=== PATIENT | male | born 1935 | race Hispanic/Latino ===

== ENCOUNTER 2016-09-07 16:45 | Inpatient (IN) | payer MEDICARE ==
[2016-09-07 17:03] VITALS: BMI 32.6
[2016-09-07 17:35] LABS: ADD MANUAL DIFF? NO
[2016-09-07 17:42] LABS: BASO # 0.02 K/mm3 (0.0-2.0); BASO % 0.4 % (0.0-3.0); EOS # 0.1 (0.0-0.7); EOS % 1.2 % (1.5-5.0); GRAN # 4.18 (1.4-6.5); GRAN % 73.8 % (50.0-68.0); HEMATOCRIT 35.1 % (42.0-52.0); LYMPH # 1.1 (1.2-3.4); LYMPH % 18.9 % (22.0-35.0); MEAN CELL VOLUME 85.8 fL (80.0-105.0); MEAN CORPUSCULAR HEMOGLOBIN 30.1 pg (25.0-35.0); MEAN PLATELET VOLUME 11.7 fl (7.0-11.0); MONO # 0.3 (0.1-0.6); MONO % 5.7 % (1.0-6.0); PLATELET COUNT 228 10^3/uL (120.0-450.0); RED CELL DISTRIBUTION WIDTH 12.8 % (11.5-14.5); WHITE BLOOD COUNT 5.7 10^3/ul (4.5-11.0)
[2016-09-07 17:53] LABS: ALB/GLOB RATIO 0.7 (1.1-1.8); ALKALINE PHOSPHATASE 147 U/L (38-133); ALT/SGPT 22 U/L (7-56); AST/SGOT 42 U/L (15-59); BILIRUBIN,TOTAL 0.9 mg/dL (0.2-1.3); BLOOD UREA NITROGEN 36 mg/dL (7-21); CALCIUM 8.4 mg/dL (8.4-10.5); CARBON DIOXIDE 29 mmol/L (21-33); CHLORIDE 91 mmol/L (98-107); GFR AFRICAN-AMERICAN > 60; POTASSIUM 4.5 mmol/L (3.6-5.0); SODIUM 125 mmol/L (132-148); TOTAL PROTEIN 6.7 g/dL (5.8-8.3)
[2016-09-07 17:54] LABS: INR 0.94 (0.93-1.08); PARTIAL THROMBOPLASTIN TIME 24.3 Seconds (23.7-30.8)
[2016-09-07 18:03] LABS: TROPONIN I 0.06 ng/mL
[2016-09-07 18:24] LABS: GLUCOSE,RANDOM 594 mg/dL (70-110)
[2016-09-07] MEDS ORDERED: Insulin Reg-MEDIUM-Coverage IV STA ×2 (18:27→20:19)
[2016-09-07] MEDS ORDERED: Insulin Regular 1 UNITS/0.01 ML ML IV STA ×2 (18:35→20:51)
--- NOTE | 2016-09-07 18:59 | RAD ---
PROCEDURE: CHEST RADIOGRAPH, 1 VIEW HISTORY: admission COMPARISON: 05/30/2016. FINDINGS: LUNGS: Clear. PLEURA: No pneumothorax or pleural fluid seen. CARDIOVASCULAR: No radiographic findings to suggest acute or significant cardiovascular disease. OSSEOUS STRUCTURES: No significant abnormalities. VISUALIZED UPPER ABDOMEN: Normal. OTHER FINDINGS: None. IMPRESSION: No active disease. No acute/significant interval changes.
--- NOTE | 2016-09-07 19:30 | ED PDOC ---
Arrival/HPI - General Chief Complaint: Lower Extremity Problem/Injury Time Seen by Provider: 09/07/16 17:01 Historian: Patient - History of Present Illness Narrative History of Present Illness (Text): 09/07/16 19:27 80yo male with PMhx of hypertension, diabetes and CHF BIBA for complaint of worsening b/l lower leg swelling x weeks. the daughter who was by the bedside states she noticed excretion of clear fluid from the legs. States she is not sure if he is complaint with his medication. Requesting evaluation for possible Dementia or Alzheimer's. Denies chest pain, cough, orthopnea, HAGER, fever, chills , sick contact, any other complaint. Past Medical History - Provider Review Nursing Documentation Reviewed: Yes - Cardiac Hx Cardiac Disorders: Yes Hx Hypertension: Yes Hx Peripheral Edema: Yes - Pulmonary Hx Respiratory Disorders: No - Neurological Hx Neurological Disorder: No - HEENT Hx HEENT Disorder: No - Renal Hx Renal Disorder: No - Endocrine/Metabolic Hx Endocrine Disorders: Yes Hx Diabetes Mellitus Type 1: Yes - Hematological/Oncological Hx Blood Disorders: No - Integumentary Hx Dermatological Disorder: No - Musculoskeletal/Rheumatological Hx Musculoskeletal Disorders: No Hx Falls: No - Gastrointestinal Hx Gastrointestinal Disorders: No - Genitourinary/Gynecological Hx Genitourinary Disorders: No - Psychiatric Hx Psychophysiologic Disorder: No Hx Substance Use: No Family/Social History - Physician Review Nursing Documentation Reviewed: Yes Family/Social History: Unknown Family HX Smoking Status: Never Smoked Hx Alcohol Use: No Hx Substance Use: No Allergies/Home Meds Allergies/Adverse Reactions: Allergies No Known Allergies Allergy (Verified 09/07/16 17:02) Home Medications: Home Meds Medication Instructions Recorded Confirmed Aspirin [Ecotrin] 81 mg PO DAILY 05/30/16 09/07/16 Insulin Aspart/Insulin Aspar 10 units SC BID 05/30/16 05/30/16 [Novolog Mix 70/30 (70/30 units/ml)] Lisinopril [Zestril] 40 mg PO DAILY 05/30/16 09/07/16 Furosemide [Lasix] 40 mg PO BID 09/07/16 09/07/16 Potassium Chloride [Klor-Con 10] 10 meq PO BID 09/07/16 09/07/16 Review of Systems - Physician Review All systems were reviewed & negative as marked: Yes - Review of Systems Constitutional: Normal Eyes: Normal ENT: Normal Respiratory: Normal Cardiovascular: Edema (B/L LE) Gastrointestinal: Normal Genitourinary Male: Normal Musculoskeletal: Normal Skin: Normal Neurological: Normal Endocrine: Normal Hemo/Lymphatic: Normal Psychiatric: Normal Physical Exam Vital Signs Reviewed: Yes Vital Signs Temp Pulse Resp BP Pulse Ox 09/07/16 19:03 149/79 09/07/16 19:00 99 H 19 149/79 95 09/07/16 17:02 98.9 F 89 19 187/90 H 98 Temperature: Afebrile Blood Pressure: Normal Pulse: Regular Respiratory Rate: Normal Appearance: Positive for: Well-Appearing, Non-Toxic, Comfortable Pain Distress: None Mental Status: Positive for: Alert and Oriented X 3 - Systems Exam Head: Present: Atraumatic, Normocephalic Pupils: Present: PERRL Extroacular Muscles: Present: EOMI Conjunctiva: Present: Normal Mouth: Present: Moist Mucous Membranes Neck: Present: Normal Range of Motion Respiratory/Chest: Present: Clear to Auscultation, Good Air Exchange, Rales ( Ble bases). No: Respiratory Distress, Accessory Muscle Use, Wheezes, Decreased Breath Sounds, Retracting, Rhonchi, Tachypneic Cardiovascular: Present: Regular Rate and Rhythm, Normal S1, S2. No: Murmurs Abdomen: Present: Normal Bowel Sounds. No: Tenderness, Distention, Peritoneal Signs Back: Present: Normal Inspection Upper Extremity: Present: Normal Inspection. No: Cyanosis, Edema Lower Extremity: Present: Normal Inspection, Edema (4+bipedal edema), CALF TENDERNESS (B/L), NORMAL PULSES (DEcreased), Normal ROM, Erythema (B/L LE). No : Beena's Sign, Temperature Abnormalties Neurological: Present: GCS=15, CN II-XII Intact, Speech Normal Skin: Present: Warm, Dry, Normal Color. No: Rashes Psychiatric: Present: Alert, Oriented x 3, Normal Insight, Normal Concentration Medical Decision Making ED Course and Treatment: 09/07/16 19:34 Pt present for stated history. Edema of b/l LE was noted. He was hemodynamically stable in ER. He heave hyponatremia, hyperglycemia with elevated BNP in the lab. Per US tech, doppler was negative for DVT b/l. Chest xray was NAD. Insulin and lasix was ordered. Will not hydrate at this time secondary to his CHFe exacerbation. He will be admitted for CHF exacerbation. Case was DW Dr. morris and he accepted pt into his service. Result and plan was DW the pt and he agreed. - Lab Interpretations Lab Results: 09/07/16 17:25 09/07/16 17:25 Lab Results 09/07/16 17:25: WBC 5.7, RBC 4.09, Hgb 12.3 L, Hct 35.1 L, MCV 85.8, MCH 30.1, MCHC 35.0, RDW 12.8, Plt Count 228, MPV 11.7 H, Gran % 73.8 H, Lymph % (Auto) 18.9 L, [place] % (Auto) 5.7, Eos % (Auto) 1.2 L, Baso % (Auto) 0.4, Gran # 4.18, Lymph # 1.1 L, [place] # 0.3, Eos # 0.1, Baso # 0.02, PT 10.2, INR 0.94, APTT 24.3 , Sodium 125 L, Potassium 4.5, Chloride 91 L, Carbon Dioxide 29, Anion Gap 10, BUN 36 H, Creatinine 1.0, Est GFR ( Amer) > 60, Est GFR (Non-Af Amer) > 60, Random Glucose 594 H* D, Calcium 8.4, Total Bilirubin 0.9, AST 42, ALT 22, Alkaline Phosphatase 147 H, Lactate Dehydrogenase 693, Total Creatine Kinase 156 , Troponin I 0.06 D, NT-Pro-B Natriuret Pep 4090 H, Total Protein 6.7, Albumin 2.8 L, Globulin 3.9, Albumin/Globulin Ratio 0.7 L - RAD Interpretation Radiology Orders: 09/07/16 17:12 DUPLEX LOWER EXTRM VEIN BILAT [US] Stat 09/07/16 17:13 CHEST ONE VIEW [RAD] Stat - EKG Interpretation Interpreted by ED Physician: Yes (Sinus tachy with PAC 101bpm. No ST changes) - Medication Orders Current Medication Orders: Discontinued Medications Furosemide (Lasix) 60 mg IVP STAT STA Stop: 09/07/16 18:29 Last Admin: 09/07/16 19:03 Dose: 60 MG MAR Blood Pressure Document 09/07/16 19:03 JOL (Rec: 09/07/16 19:04 JOL [id number]) Blood Pressure Blood Pressure (100/60-150/90 mm Hg) 149/79 IVP Administration Document 09/07/16 19:03 JOLydia (Rec: 09/07/16 19:04 [id number] Charges for Administration # of IVP Administrations 1 Insulin Human Regular (Humulin R) 10 units IV STAT STA Stop: 09/07/16 18:36 Last Admin: 09/07/16 19:04 Dose: 10 UNITS eMAR Start Stop Document 09/07/16 19:04 JOLydia (Rec: 09/07/16 19:04 [id number] Intravenous Solution Start Date 09/07/16 Start Time 19:04 End Date 09/07/16 End time 19:06 Total Infusion Time 2 Disposition/Present on Arrival - Present on Arrival Any Indicators Present on Arrival: No History of DVT/PE: No History of Uncontrolled Diabetes: No Urinary Catheter: No History of Decub. Ulcer: No History Surgical Site Infection Following: None - Disposition Have Diagnosis and Disposition been Completed?: Yes Diagnosis: Congestive heart failure (CHF), Hyperglycemia, Hypoglycemia Disposition: HOSPITALIZED Disposition Time: 19:20 Condition: FAIR Discharge Instructions (ExitCare): Heart Failure (ED)
[2016-09-07] MEDS ORDERED: Influenza Vaccine 45 MCG/0.5 ml IM ONE (21:21)
[2016-09-07] MEDS ORDERED: Pneumococcal 23-Valent Vaccine IM ONE (21:21)
[2016-09-07] MEDS ORDERED: Insulin Reg-LOW-Coverage SC SCH (23:31)
[2016-09-08 07:57] LABS: HEMATOCRIT 32.9 % (42.0-52.0); MEAN CELL VOLUME 85.5 fL (80.0-105.0); MEAN CORPUSCULAR HEMOGLOBIN 29.9 pg (25.0-35.0); MEAN PLATELET VOLUME 11.7 fl (7.0-11.0); RED CELL DISTRIBUTION WIDTH 12.8 % (11.5-14.5); WHITE BLOOD COUNT 6.7 10^3/ul (4.5-11.0)
[2016-09-08] MEDS: Insulin Reg-MEDIUM-Coverage SC SCH ×4 (08:03→22:18)
[2016-09-08 08:31] LABS: ALB/GLOB RATIO 0.7 (1.1-1.8); ALKALINE PHOSPHATASE 119 U/L (38-133); ALT/SGPT 18 U/L (7-56); AST/SGOT 21 U/L (15-59); BLOOD UREA NITROGEN 32 mg/dL (7-21); CALCIUM 8.1 mg/dL (8.4-10.5); CARBON DIOXIDE 32 mmol/L (21-33); CHLORIDE 94 mmol/L (98-107); GFR AFRICAN-AMERICAN > 60; PHOSPHOROUS 3.8 mg/dL (2.5-4.5); POTASSIUM 3.8 mmol/L (3.6-5.0); SODIUM 132 mmol/L (132-148); TOTAL PROTEIN 5.5 g/dL (5.8-8.3)
[2016-09-08 08:34] LABS: TROPONIN I 0.09 ng/mL
[2016-09-08 08:42] LABS: GLUCOSE,RANDOM 385 mg/dL (70-110)
--- NOTE | 2016-09-08 09:33 | US ---
HISTORY: Leg pain and swelling. Evaluate for DVT PHYSICIAN(S): Giovani Matute MD. TECHNIQUE: Duplex sonography and color-flow Doppler with graded compression were used to evaluate the deep venous systems of both lower extremities. The exam is limited by edema and body habitus. The tibial veins are not well seen FINDINGS: The visualized deep venous systems of both lower extremities are sonographically normal and compressible. Normal wave forms and augmentation are seen. There is no sonographic evidence for deep venous thrombosis in the visualized segments of both lower extremities. IMPRESSION: No sonographic evidence for deep venous thrombosis in the visualized segments of both lower extremities. Limited study.
[2016-09-08 09:57] LABS: T4 8.4 ug/dL (5.5-11.0)
--- NOTE | 2016-09-08 10:02 | CARD ---
APPROVED REPORT EKG Measurement Heart [id number] <Conclusion> RSR 1 PVC PRWP Possible septal TN, old Laftward axis NSSTW changes
[2016-09-08] MEDS: Insulin Lispro (humaLOG) MIX 75/25(10 ml) SC SCH ×2 (10:03→17:39)
[2016-09-08] MEDS: Potassium Chloride 20 mEq ER Tab PO SCH ×2 (10:04→17:39)
[2016-09-08 10:10] LABS: THYROID STIMULATING HORMONE 2.33 mIU/mL (0.46-4.68)
--- NOTE | 2016-09-08 10:13 | HP ---
CHIEF COMPLAINT AND HISTORY OF PRESENT ILLNESS: This is an 80-year-old male who is coming into the [facility] with complaints of lower extremity edema. The patient has a history of hypertension and diab etes. He has a history of noncompliance. He has not been taking his diuretic therapy. The patient was brought in by his daughter who I spoke with and who was able to give me the patient's history. T he patient has also had periods of confusion. She is concerned about him having dementia. The patie nt has no complaints of any chest pain or shortness of breath. He has no abdominal pain, no back naresh n, no dysuria or frequency. He denies any shortness of breath, no weakness in the arms or legs. REVIEW OF SYSTEMS: All other review of symptoms are within normal limits except as mentioned. ALLERGIES: No known drug allergies. HOME MEDICATIONS: Aspirin, NovoLog, lisinopril, Lasix, potassium. PAST MEDICAL HISTORY: 1. Diabetes, type 2. 2. Hypertension. SOCIAL HISTORY: He does not smoke or drink. FAMILY HISTORY: He lives with his daughter. PHYSICAL EXAMINATION: VITAL SIGNS: Temperature is 99.3, pulse of 93, blood pressure 139/71, respirations 18, O2 saturation 93%. Height is 5 feet 8 inches, weight is 215 pounds, BMI is 32.7. GENERAL: Patient lying in bed, flat, and in no apparent distress. HEAD AND NECK EXAM: Atraumatic, normocephalic. Conjunctivae are pink. Throat clear and mouth with moist mucosa. Oropharynx benign. EYES: Extraocular movements are intact. PERRLA. NECK: Supple. No JVD, thyromegaly, or adenopathy. No bruits. HEART: S1 and S2 regular rate and rhythm. No murmurs, rubs, or gallops. LUNGS: Clear to auscultation bilaterally. No wheezing rales or rhonchi appreciated. No retraction s on exam. ABDOMEN: Soft, nontender, nondistended. Bowel sounds are positive in all quadrants. No rebound. No hepatosplenomegaly. EXTREMITIES: No cyanosis, clubbing. In the lower extremities, there is 1+ edema. There is stage I-II skin ulcers that are forming. NEURO: No facial asymmetry, tongue is midline, no uvula deviation. Power is 5/5 in upper extremity and 5/5 in lower extremity. Sensation is normal in upper extremity and lower extremity. PSYCH: Awake, alert, oriented x3. No anxiety or depression symptoms. Good insight. Normal affec t. : No CVA tenderness VASCULAR: 2+ pulses in carotid and pedal pulses. SKIN: No erythema or abnormal nodules noted. SPINE: Normal curvature. LYMPHADENOPATHY: No anterior cervical or posterior cervical adenopathy. No inguinal adenopathy. LABORATORY DATA: White count 5.7, hemoglobin 12.3. Chemistry shows a sodium of 125, repeat is 132. Creatinine is 1.0. His glucose was 594; this mornin g it is 385. His chest x-ray done shows no active disease. His EKG shows sinus tachycardia, PVC; no ST-T changes. ASSESSMENT: 1. Lower extremity edema. 2. Acute congestive heart failure secondary to systolic dysfunction. 3. Diabetes, type 2. 4. Probably dementia, Alzheimer's type. 5. Hyponatremia. PLAN: The patient is going to be admitted to the hospital. He has lower extremity edema, elevated B BILINGUAL TEACHER. The patient has CHF secondary to systolic dysfunction. I will get cardiology to see the patient ; I will get Dr. Bennett. The patient is going to be seen by Dr. Caceres for his feet. He is on his diabetes medications. His sugar will get improved. He has a history of noncompliance, probably from his dementia. The patient is on Lasix twice a day. He is on aspirin. He will most likely need to be on an ANTHONY inhibitor as well. The patient has an ultrasound of lower extremity that is pending. W ill continue to follow the patient closely. I did speak to the patient's daughter to give an update on the patient's diagnosis and plan of care. Bruno Garcia MD cc: [id number] TT: 09/08/2016 10:12:24 hi
--- NOTE | 2016-09-08 10:19 | CON ---
DATE: 09/08/2016 REASON FOR CONSULTATION: Dementia evaluation. HISTORY OF PRESENTING ILLNESS: The patient is an 80-year-old male who was brought by daughter for ev aluation of worsening lower leg swelling and weakness and secretions coming from the lower extremitie s. The patient apparently also has some memory dysfunction. That is why neurology consultation was called. As per patient, he has been having problems with the legs over the last 3 weeks. He denies any difficulty with memory though. REVIEW OF SYSTEMS: Denies any headache, chest pain, shortness of breath, abdominal pain, constipatio n, diarrhea, dysuria, pyuria, cough or sputum production. PAST MEDICAL HISTORY: Includes hypertension, diabetes mellitus. MEDICATIONS: At home include Zestril, NovoLog, Lasix, Ecotrin, and Klor-Con. ALLERGIES: No known drug allergies. SOCIAL HISTORY: Denies smoking, use of alcohol or illicit drugs. FAMILY HISTORY: Reviewed and noncontributory. PHYSICAL EXAMINATION: GENERAL: The patient is an elderly, pleasant male, lying on the bed, in no acute distress. VITAL SIGNS: His blood pressure is 139/71, heart rate is 93 per minute, breathing at a rate of 16 pe r minute, temperature is 99.3 degrees Fahrenheit. HEENT: Head is normocephalic, atraumatic. NECK: Supple. There are no carotid bruits. LUNGS: Clear. CARDIOVASCULAR: S1, S2 audible. No murmurs. ABDOMEN: Soft, nontender. Bowel sounds present. NEUROLOGIC EXAMINATION: MENTAL STATUS: The patient is awake, alert, oriented to place and hospital, year does not know, ney h is July or August, president he said is a aaron. His recent memory is 0/3 in 5 minutes. He was unable to do serial 7. CRANIAL NERVES: Pupils are 3 mm bilaterally, reactive to light. Visual cantu are full. Extraocula r movements are intact. There is no facial asymmetry. His palate is upgoing bilaterally and tongue is midline. MOTOR: Tone is normal. Power in the upper extremities is 5/5, in the lower extremities 3-4/5. REFLEXES: 1+ and symmetrical. Plantars downgoing bilaterally. CEREBELLAR: [id number] shows no dysmetria. GAIT: Deferred at the moment. LABORATORIES: Reviewed, shows WBC 6.7, hemoglobin 11.5, hematocrit 32.9 and platelets of 220. INR i s 0.94. Sodium is 132, potassium 3.8, chloride 94, carbon dioxide 32, BUN of 32, creatinine 1.1, and glucose of 385. IMPRESSION: 1. 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 2. Bilateral lower extremity cellulitis. RECOMMENDATIONS: 1. The patient to have MRI of the brain without contrast. 2. The patient to have an electroencephalogram. 3. The patient to have vitamin B12, T4, and TSH levels done. 4. The patient to be started on Aricept 5 mg once a day. 5. Please continue other treatment and supportive care. Thank you for the opportunity to participate in the care of this patient. Estefany Flores MD cc: [id number] TT: 09/08/2016 10:19:00 Confirmation # [id number] Dictation # [id number] en
--- NOTE | 2016-09-08 10:25 | CON ---
DATE: 09/08/2016 HISTORY OF PRESENT ILLNESS: This is an 80-year-old male seen at bedside for bilateral lower extremity edema. The patient was alert, but not quite oriented when questions were asked about his health. H marcos really did not know how to answer; thus, most of the history is taken from the chart. The patient apparently was brought into the ER with his daughter complaining that his legs were swelling and ther e was clear fluid coming from the legs. The patient's daughter stated she was not sure if he was com pliant with his medications and the patient's daughter requested the ER to workup for dementia or Alz heimer. The patient's daughter states that he denied any fever or chills. There were no other compl aints of chest pain except for the only complaint were the legs. The patient does have a history of cardiac disease. He has a history of insulin-dependent diabetes. He has no other medical problems a t this time noted from the chart. SOCIAL HISTORY: He lives at home. He states he lives with his family. Negative for smoking, negati ve for alcohol and negative for substance abuse. MEDICATIONS: Noted on the AUG. He was taking insulin at home, lisinopril, Lasix and potassium chlor jimbo. ALLERGIES: He has no known drug allergies. REVIEW OF SYSTEMS: Negative for constitutional, negative for ENT, negative for eyes, negative for re spiratory. Positive for bilateral lower extremity edema. Negative for GI, negative for , negative for neurological. Positive for skin blisters. Positive for musculoskeletal. The patient states he is not stable on his feet. Positive for endocrine as noted above, the diabetes and psych is questio nable dementia. VITAL SIGNS: Show today he has a temperature of 99.3. His pulse is 98, blood pressure is 139/71, hi s oxygen sat is 93 and respirations are 18. LABORATORY DATA: The patient's labs were also reviewed. His white blood cell count is 6.7, the H an d H is 11.5/32.9. The platelets are 220. He has granulocytes of 73.8, the lymphs are 18.9 with a sh ift to the left. Chemistries show he came in yesterday with a glucose of 595. Today it is 385. His potassium is low. Sodium was high. His BUN and creatinine was 32 and 1.1 today and his alkaline ph osphatase was 147 yesterday, it is 119 today. His BNP was also elevated at 4090 yesterday. Total pr otein is 6.7. The albumin was low at 2.8. Today the protein and the albumin are both low. Coagulat ion shows an INR of 0.94. No microbiology is noted on the chart at this time. The patient's lower extremities were evaluated. He has nonpalpable pedal pulses bilateral. Temperat ure gradient is slightly cool bilateral. Capillary refill time was delayed x 10. He has evidence of severe edema to the bilateral lower extremities, at this time it is +2, but there are exaggerated sk in lines showing the patient did have a large amount of edema just recently. There is evidence of an erupted blisters on both feet and these are closed and not weeping or draining at this time. He had tape all over the bottom of his right foot. It was adhered to on all of his toes and on the plantar aspect. When questioned about this, the patient could not really answer why there was tape. He gladys d something about his shoes. The patient's neurological sensation is decreased bilateral. ASSESSMENT: A diabetic with bilateral edema, neuropathy and peripheral vascular disease. PLAN OF TREATMENT: The patient is going to be sent for arterial Dopplers. He did have venous Dopple rs to rule out DVT. Report on that is still pending. We are going to order Lac-Hydrin as well as Lo trimin cream to be put on the feet and legs bilateral, and we will order Multi Podus boots to prevent any heel ulcers since he is not readily ambulatory. The patient will be seen and followed. Rosa Caceres DPM cc: [id number] TT: 09/08/2016 10:24:46 Confirmation # [id number] Dictation # [id number] snehal
--- NOTE | 2016-09-08 10:37 | CON ---
DATE: 09/08/2016 INDICATIONS: Edema. HISTORY OF PRESENT ILLNESS: This is an 80-year-old hypertensive diabetic male admitted with worsening severe lower extremity edema with weeping skin lesions and cellulitis. Apparently, this has been getting worse over several weeks. He has been a noncompliant patient, noncompliant with medications. He was brought in by his daughter. Apparently there is some concern of the development of dementia. There was no chest pain, shortness of breath, orthopnea, PND, syncope, presyncope, lightheadedness, dizziness, vertigo, palpitations, fever, chills, cough, sputum production, hemoptysis, abdominal pain, nausea, vomiting, diarrhea, constipation, or melena. PAST MEDICAL HISTORY: Notable for hypertension and diabetes. An echocardiogram in 05/2016 revealed normal LV function with moderate aortic stenosis, mild to moderate mitral regurgitation, and mild aortic and tricuspid regurgitation. There is no history of rheumatic fever, myocardial infarction, angina, stroke, TIA or gout. MEDICATIONS: At the time of admission include Lasix b.i.d., aspirin, potassium chloride, insulin, lisinopril. ALLERGIES: There are no known medication allergies. SOCIAL HISTORY: He does not smoke cigarettes. He does not drink alcohol. He lives at home. He is watched by his daughter. REVIEW OF SYSTEMS: A 10-point review of systems is unremarkable, although it is somewhat limited. PHYSICAL EXAMINATION: GENERAL: He is a well-developed elderly male lying in bed on telemetry, in no acute distress. VITAL SIGNS: Unremarkable. He is afebrile. He is in sinus rhythm at 90 beats per minute, blood pressure 139/71, respirations 18-20, O2 sat 93-96%. HEENT: Reveals no neck vein distention, thyromegaly, or carotid bruits. Mucous membranes are moist. Conjunctivae are pink. NECK: Supple. CHEST: Lung cantu are clear. HEART: Revealed a regular rhythm with normal first and second heart sounds. There is a systolic murmur in the aortic space and along the left sternal border. ABDOMEN: Soft. Bowel sounds are present. No mass, organomegaly, tenderness, rebound, or guarding. No CVA tenderness. No palpable abdominal aortic aneurysm. EXTREMITIES: Revealed severe edema to the thighs with chronic skin changes and weeping skin lesions. NEUROLOGIC: He was awake, alert and oriented. Diminished hearing possibly. PSYCHIATRIC: Normal as to mood and affect. SKIN: Warm and dry and unremarkable except for the lower extremities below the knees with chronic skin changes and weeping lesions. LABORATORY AND IMAGING: A chest x-ray revealed no active disease. EKG demonstrates regular sinus rhythm, leftward axis, PVC, poor R-wave progression, nonspecific ST-wave changes. White count normal, hemoglobin 11.5, hematocrit 32.9, platelet count 220,000. PT, INR, PTT normal. Electrolytes, BUN, creatinine and blood sugar noted. Elevated blood sugar is noted. Initial sodium 125; today's is 132. LFTs unremarkable. Troponins 0.06 and 0.09. BNP was 4090. CBC unremarkable. IMPRESSION: The patient is an 80-year-old man with severe recurring edema with cellulitis and weeping skin lesions, with a history of a normal left ventricular function on an echocardiogram in 05/2016. This echocardiogram also demonstrated moderate aortic stenosis, mild to moderate mitral regurgitation, mild aortic insufficiency and tricuspid regurgitation. He has been noncompliant with medications. There may be an element of dementia which needs evaluating. I have discussed the case with Dr. Garcia. PLAN: He will be on telemetry. He will get IV Lasix. We will monitor I's and O's and daily weights. There is a podiatric consultation. He has been cultured. He will have a neuro evaluation. He has been started on Aricept. He is getting aspirin, insulin, potassium, Lasix. Lower extremity venous Dopplers have been ordered. An MRI of the brain has been ordered. I will review his recent echocardiogram. I will follow along with you. I will make additional recommendations based on his clinical course. Kris Bennett MD cc: [id number] TT: 09/08/2016 10:36:45 Confirmation # [id number] Dictation # [id number] [email or web address] MURGUIA
--- NOTE | 2016-09-08 15:18 | US ---
PROCEDURE: Lower extremity SILVERIO exam HISTORY: Peripheral vascular disease with pain and ulceration. Diabetes. Previous smoker. PHYSICIAN(S): Giovani Matute MD. FINDINGS: The PVR waveforms are limited by artifact. The resting SILVERIO's are normal: right, 1.04and left, 0.96. The brachial systolic pressures are symmetric. The low thigh PVR waveforms are normal and symmetric. Thigh pressures and waveforms are relatively normal. The calf PVR waveforms augment normally. No significant gradients are noted across the thighs. The ankle PVR waveforms are relatively normal and symmetric. The metatarsal waveforms are moderately blunted. IMPRESSION: 1. Relatively normal SILVERIO and PVR examination at rest.
--- NOTE | 2016-09-08 16:36 | MRI ---
PROCEDURE: MRI BRAIN WITHOUT CONTRAST HISTORY: dementia COMPARISON: None. TECHNIQUE: Limited incomplete study. Only diffusion and axial T2 weighted images were obtained. The patient could not tolerate the exam. FINDINGS: HEMORRHAGE: No evidence of large hematoma or fluid collection in the brain. DWI: No evidence of an acute or early subacute infarction. BRAIN PARENCHYMA: No mass effect or edema. Moderate atrophy is noted. VENTRICLES: Unremarkable. No hydrocephalus. CRANIUM: Unremarkable. ORBITS: Grossly unremarkable. PARANASAL SINUSES/MASTOIDS: Clear VASCULAR SYSTEM: Skull base flow voids intact. OTHER FINDINGS: None. IMPRESSION: Limited incomplete study. No evidence of acute or subacute infarct. No evidence of encephalomalacia mass effect or midline shift. [id number] atrophy.
[2016-09-09] MEDS: Insulin Reg-MEDIUM-Coverage SC SCH ×4 (08:29→23:51)
--- NOTE | 2016-09-09 08:47 | CP.PCM.PN ---
Subjective - Date & Time of Evaluation Date of Evaluation: 09/09/16 Time of Evaluation: 08:00 - Subjective Subjective: Stable on 2R. No CP or SOB. Edema better. V/S noted. RSR PE: Lungs: clear Cor.: S1S2, sys. murmur Abd.: soft Ext.: + edema Neuro.: alert I/O= 2130/2000 Labs noted BC x2 NG at 24 hrs. Brain MRI noted: Limited Study LE venous Dopplers: Neg for DVT BIs noted Objective - Vital Signs/Intake and Output Vital Signs (last 24 hours): Temp Pulse Resp BP Pulse Ox 99 F 85 18 121/84 93 L 09/09/16 06:00 09/09/16 06:00 09/09/16 06:00 09/09/16 06:00 09/09/16 06:00 Intake and Output: 09/09/16 09/09/16 06:59 18:59 Intake Total 1880 Output Total 2000 Balance -120 - Medications Medications: Current Medications Aspirin (Ecotrin) 81 mg PO DAILY [facility] Last Admin: 09/08/16 10:03 Dose: 81 mg Donepezil HCl (Aricept) 5 mg PO HS [facility] Last Admin: 09/08/16 22:07 Dose: 5 mg Furosemide (Lasix) 40 mg IVP BID [facility] Last Admin: 09/08/16 17:37 Dose: 40 mg Insulin Human Regular (Humulin R Med) 0 units SC ACHS [facility] PRN Reason: Protocol Last Admin: 09/09/16 08:29 Dose: 8 units Insulin Lispro Protam/Lispro Human (Humalog Mix 75/25) 10 units SC BID [facility] Last Admin: 09/08/16 17:39 Dose: 10 units Potassium Chloride (K-Dur 20 Meq Er Tab) 20 meq PO BID [facility] Last Admin: 09/08/16 17:39 Dose: 20 meq - Labs Labs: 09/08/16 07:00 09/08/16 07:00 PT 10.2 Seconds (9.9-11.8) 09/07/16 17:25 INR 0.94 (0.93-1.08) 09/07/16 17:25 APTT 24.3 Seconds (23.7-30.8) 09/07/16 17:25 Assessment and Plan - Assessment and Plan (Free Text) Plan: Assessment: Edema, R/O cellulitis HBP Moderate /MR on recent echo with NL LV fx. HBP Diabetes R/O dementia Plan: Continue IV Lasix Monitor: I/O, labs, sats, BSs, etc. As per neuro., podiatry, Dr. Radha SIMPSON as alan.
--- NOTE | 2016-09-09 09:13 | PN ---
DATE: 09/09/2016 SUBJECTIVE: The patient has no complaints of any chest pain, no shortness of breath, no headaches. PHYSICAL EXAMINATION: VITAL SIGNS: Temperature is 99, pulse of 85, blood pressure 121/84, respirations 18. GENERAL: The patient comfortable, in no acute distress. HEENT: Anicteric sclerae. Moist mucosa. NECK: No JVD or adenopathy. CARDIAC: S1/S2. No murmurs. No rubs. Regular. RESPIRATORY: Clear to auscultation bilaterally. No wheezes, rales, or rhonchi. Good air entry. ABDOMEN: Bowel sounds are positive, soft, nontender, and nondistended. EXTREMITIES: No edema. Has 1+ pulses. LABS: White count of 6.7, hemoglobin 11.5, creatinine is 1.1. The patient had an MRI of the brain without contrast that was limited. It showed no evidence of acut e or subacute infarcts, mild atrophy. The patient had lower extremity Dopplers done that show abnorma l ABIs. ASSESSMENT: 1. Lower extremity edema. 2. Acute congestive heart failure secondary to systolic dysfunction. 3. Diabetes, type 2. 4. Dementia, Alzheimer's type. 5. Hyponatremia, improved. PLAN: The patient chemistry shows that the fingersticks are better controlled. The hemoglobin A1c is not controlled at 16. He is nonadherent to his medications because of being forgetful. He has been started on Aricept. The patient is on aspirin. He is going to continue with Lasix and potassium repl acement. Repeat blood work has been ordered. He is going to get physical therapy. I did speak to the patient's daughter yesterday to give her an update on the patient's diagnoses and plan of care. She i s concerned about his dementia. This dementia is going to be a challenge for the patient to adhere to his regimen. The patient had declined his physical therapy yesterday. Bruno Garcia MD cc: [id number] TT: 09/09/2016 09:11:56 Confirmation # [id number] Dictation # [id number] [email or web address]
[2016-09-09] MEDS: Potassium Chloride 20 mEq ER Tab PO SCH ×2 (11:58→18:02)
[2016-09-09] MEDS: Insulin Lispro (humaLOG) MIX 75/25(10 ml) SC SCH ×2 (12:46→18:00)
[2016-09-09] MEDS ORDERED: Insulin Regular 1 UNITS/0.01 ML ML SC STA (16:29)
--- NOTE | 2016-09-10 07:50 | CP.PCM.PN ---
Subjective - Date & Time of Evaluation Date of Evaluation: 09/10/16 Time of Evaluation: 08:00 - Subjective Subjective: Stable on 2R. No CP or SOB. Edema better. Refuses tel and labs. Wants to go home. V/S noted. PE: Lungs: clear Cor.: S1S2, sys. murmur Abd.: soft Ext.: + edema Neuro.: alert BC x2 NG at 48 hrs. Brain MRI noted: Limited Study LE venous Dopplers: Neg for DVT ABIs noted Objective - Vital Signs/Intake and Output Vital Signs (last 24 hours): Temp Pulse Resp BP Pulse Ox 98.0 F 83 20 160/67 H 95 09/10/16 06:00 09/10/16 06:00 09/10/16 06:00 09/10/16 06:00 09/10/16 06:00 - Medications Medications: Current Medications Aspirin (Ecotrin) 81 mg PO DAILY [facility] Last Admin: 09/09/16 11:58 Dose: 81 mg Donepezil HCl (Aricept) 5 mg PO HS [facility] Last Admin: 09/09/16 22:04 Dose: 5 mg Furosemide (Lasix) 40 mg IVP BID [facility] Last Admin: 09/09/16 18:02 Dose: 40 mg Insulin Human Regular (Humulin R Med) 0 units SC ACHS [facility] PRN Reason: Protocol Last Admin: 09/09/16 23:51 Dose: Not Given Insulin Lispro Protam/Lispro Human (Humalog Mix 75/25) 10 units SC BID [facility] Last Admin: 09/09/16 18:00 Dose: 10 units Potassium Chloride (K-Dur 20 Meq Er Tab) 20 meq PO BID [facility] Last Admin: 09/09/16 18:02 Dose: 20 meq - Labs Labs: 09/08/16 07:00 09/08/16 07:00 PT 10.2 Seconds (9.9-11.8) 09/07/16 17:25 INR 0.94 (0.93-1.08) 09/07/16 17:25 APTT 24.3 Seconds (23.7-30.8) 09/07/16 17:25 Assessment and Plan - Assessment and Plan (Free Text) Plan: Assessment: Edema, R/O cellulitis HBP Moderate /MR on recent echo with NL LV fx. HBP Diabetes/Elevated BS's R/O dementia Plan: Continue IV Lasix Monitor: I/O, labs, sats, BS's, etc. As per neuro., podiatry, Dr. Radha SIMPSON as alan. Probably needs placement/protected environment/Senior Interactive Developer Evaluation
[2016-09-10] MEDS: Insulin Reg-MEDIUM-Coverage SC SCH ×4 (08:08→22:35)
[2016-09-10 09:21] LABS: HEMATOCRIT 37.9 % (42.0-52.0); MEAN CELL VOLUME 87.9 fL (80.0-105.0); MEAN CORPUSCULAR HEMOGLOBIN 30.4 pg (25.0-35.0); MEAN CORPUSCULAR HGB CONC 34.6 g/dl (31.0-37.0); MEAN PLATELET VOLUME 12.1 fl (7.0-11.0); RED CELL DISTRIBUTION WIDTH 12.9 % (11.5-14.5); WHITE BLOOD COUNT 7.6 10^3/ul (4.5-11.0)
[2016-09-10 09:36] LABS: ALB/GLOB RATIO 0.7 (1.1-1.8); ALKALINE PHOSPHATASE 142 U/L (38-133); ALT/SGPT 20 U/L (7-56); AST/SGOT 28 U/L (15-59); BILIRUBIN,TOTAL 1.2 mg/dL (0.2-1.3); BLOOD UREA NITROGEN 34 mg/dL (7-21); CALCIUM 8.3 mg/dL (8.4-10.5); CARBON DIOXIDE 32 mmol/L (21-33); CHLORIDE 92 mmol/L (98-107); GFR AFRICAN-AMERICAN > 60; MAGNESIUM 1.9 mg/dL (1.7-2.2); POTASSIUM 3.9 mmol/L (3.6-5.0); SODIUM 130 mmol/L (132-148); TOTAL PROTEIN 6.1 g/dL (5.8-8.3)
[2016-09-10 09:44] LABS: GLUCOSE,RANDOM 383 mg/dL (70-110)
--- NOTE | 2016-09-10 10:04 | PN ---
DATE: 09/10/2016 An 80-year-old male seen at bedside for continued evaluation and management of bilateral lower extrem ity edema. The patient states that he noticed some drainage on his right lower leg yesterday. He is not reporting any pain and has been afebrile. VITAL SIGNS: Taken today reveal temperature of 98, pulse rate of 83, blood pressure of 160/67. LABORATORY FINDINGS: Reveal a white count of 6.7, hemoglobin 11.5, hematocrit of 32.9, platelet coun t of 220. ESR of 70. Arterial Dopplers reveal relatively normal SILVERIO and PVR examinations. Venous D oppler has ruled out any presence of deep vein thrombosis. OBJECTIVE: Nonpalpable pedal pulses noted bilaterally. Temperature gradient is reversed bilaterally . Lower extremity skin presents thin, shiny and discolored with numerous resolved skin blisters on b oth lower legs that have crusted over and remain dry. However, there is a superficial wound on the p osterolateral aspect of the right lower leg that does show some serous drainage. The wound does not show any signs of acute bacterial infection. There is no purulence. There is no abscess formation. The wound does not probe to tendon or bone. The patient has decreased protective sensation noted bi laterally using 5.07 gram monofilament wire testing. There is +2 nonpitting lower extremity edema. ASSESSMENT: Diabetic venous stasis ulcer, right lower extremity with decreasing bilateral edema. PLAN: The patient's legs were cleansed with normal sterile saline. We will apply Lac-Hydrin and Lot rimin to the right lower leg and the left lower leg to all areas with the exception of the open lesio n. We will apply Xeroform, dry sterile dressing and compression to the right lower extremity to decr ease his edema and close his stasis ulceration. We will continue with multi-Podus boots to prevent h eel ulceration. Alan King DPM cc: [id number] TT: 09/10/2016 10:04:30 Confirmation # [id number] Dictation # [id number] tn
[2016-09-10] MEDS: Insulin Lispro (humaLOG) MIX 75/25(10 ml) SC SCH ×2 (10:05→17:19)
[2016-09-10] MEDS: Potassium Chloride 20 mEq ER Tab PO SCH ×2 (10:05→17:22)
[2016-09-10] MEDS: Ammonium Lactate 12% Lotion (225 g) EXT SCH (10:06)
[2016-09-10] MEDS: Clotrimazole 1% Cream(30 gm) TOP SCH ×2 (10:07→18:26)
--- NOTE | 2016-09-10 16:20 | PN ---
DATE: 09/10/2016 SUBJECTIVE: The patient is lying on the bed, in no acute distress. Denies having any headache or di zziness. PHYSICAL EXAMINATION: VITAL SIGNS: His blood pressure is 136/59, heart rate is 69 per minute, breathing at a rate of 16 pe r minute, temperature is 98.5 degrees Fahrenheit. HEENT: Normocephalic, atraumatic. NECK: Supple. There are no carotid bruits. LUNGS: Clear. CARDIOVASCULAR: S1, S2 audible. No murmurs. ABDOMEN: Soft and nontender with bowel sounds present. NEUROLOGIC EXAMINATION: MENTAL STATUS: The patient is awake and alert, oriented to place and hospital. He does not know the year or the month. He follows simple commands. CRANIAL NERVE EXAMINATION: Pupils are 4 mm bilaterally reactive to light. Visual cantu are full. Extraocular movements are intact. There is no facial asymmetry. Palate is upgoing bilaterally and t ongue is midline. MOTOR EXAMINATION: Tone is normal. Power in the upper extremities is 5/5 bilaterally, in the lower extremity 3/5 bilaterally. LABORATORY DATA: Reviewed. T4 and TSH are within normal limits. He had MRI of the brain without co ntrast shows limited study. No evidence of acute or subacute infarct. No evidence of encephalomalac ia, mass effect or midline shift. IMPRESSION: Dementia of Alzheimer's type. RECOMMENDATIONS: 1. The patient to have an electroencephalogram. 2. The patient also to have vitamin B12 levels done. 3. The patient has been taking Aricept 5 mg, tolerating very well. Denies having any diarrhea. 4. Please continue other treatment and supportive care. Thank you for the opportunity to participate in the care of this patient. Estefany Flores MD cc: [id number] TT: 09/10/2016 16:19:37 Confirmation # [id number] Dictation # [id number] jn
--- NOTE | 2016-09-11 07:53 | CP.PCM.PN ---
Subjective - Date & Time of Evaluation Date of Evaluation: 09/11/16 Time of Evaluation: 08:00 - Subjective Subjective: Stable on 2R. No CP or SOB. Edema better. V/S noted. RSR PE: Lungs: clear Cor.: S1S2, sys. murmur Abd.: soft Ext.: + edema Neuro.: alert Labs noted. Na+= 130, K+=3.9, Cr.= 1.3, BS's 300 - 400's, Mg.++= 1.9 BC x2 NG at 3 days Brain MRI noted: Limited Study LE venous Dopplers: Neg for DVT ABIs noted Objective - Vital Signs/Intake and Output Vital Signs (last 24 hours): Temp Pulse Resp BP Pulse Ox 98.8 F 84 20 160/79 H 93 L 09/11/16 06:00 09/11/16 06:00 09/11/16 06:00 09/11/16 06:00 09/11/16 06:00 Intake and Output: 09/11/16 09/11/16 06:59 18:59 Intake Total 0 Output Total 550 Balance -550 - Medications Medications: Current Medications Aspirin (Ecotrin) 81 mg PO DAILY [facility] Last Admin: 09/10/16 10:05 Dose: 81 mg Clotrimazole (Lotrimin 1%) 30 gm TOP BID [facility] Last Admin: 09/10/16 18:26 Dose: 1 applic Donepezil HCl (Aricept) 5 mg PO HS [facility] Last Admin: 09/10/16 21:45 Dose: 5 mg Furosemide (Lasix) 40 mg IVP BID [facility] Last Admin: 09/10/16 17:23 Dose: 40 mg Insulin Human Regular (Humulin R Med) 0 units SC ACHS [facility] PRN Reason: Protocol Last Admin: 09/10/16 22:35 Dose: 4 units Insulin Lispro Protam/Lispro Human (Humalog Mix 75/25) 10 units SC BID [facility] Last Admin: 09/10/16 17:19 Dose: 10 units Lactic Acid (Lac-Hydrin 12% Lotion (225 G)) 30 gm EXT DAILY [facility] Last Admin: 09/10/16 10:06 Dose: 1 applic Potassium Chloride (K-Dur 20 Meq Er Tab) 20 meq PO BID [facility] Last Admin: 09/10/16 17:22 Dose: 20 meq - Labs Labs: 09/10/16 08:00 09/10/16 08:00 PT 10.2 Seconds (9.9-11.8) 09/07/16 17:25 INR 0.94 (0.93-1.08) 09/07/16 17:25 APTT 24.3 Seconds (23.7-30.8) 09/07/16 17:25 Assessment and Plan - Assessment and Plan (Free Text) Plan: Assessment: LE Edema, R/O cellulitis HBP Moderate /MR on recent echo with NL LV fx. HBP Diabetes/Elevated BS's R/O dementia Plan: Continue IV Lasix > PO soon. Adjust diabetes meds. Monitor: I/O, labs, sats, BS's, etc. As per neuro., podiatry, Dr. Radha SIMPSON as alan. Can D/C tel. Probably needs placement/protected environment/Pallet Sorter Evaluation
[2016-09-11] MEDS: Insulin Reg-MEDIUM-Coverage SC SCH ×4 (08:30→22:53)
[2016-09-11] MEDS: Insulin Lispro (humaLOG) MIX 75/25(10 ml) SC SCH ×2 (10:59→18:00)
[2016-09-11] MEDS: Potassium Chloride 20 mEq ER Tab PO SCH ×2 (11:00→17:59)
[2016-09-11] MEDS: Ammonium Lactate 12% Lotion (225 g) EXT SCH (11:01)
[2016-09-11] MEDS: Clotrimazole 1% Cream(30 gm) TOP SCH ×2 (11:02→17:51)
--- NOTE | 2016-09-11 12:29 | EEG ---
DATE: 09/09/2016 INTRODUCTION: This is a digitally recorded EEG monitoring using standard EEG montages. BACKGROUND RHYTHM: The EEG shows a background activity of 8 Hz alpha activity in parietooccipital re gion. The EEG activity is bilaterally symmetrical and synchronous. There is attenuation of the back ground activity on eye opening. No sleep recording was noted. ABNORMAL POTENTIALS: No spike, sharp waves or focal slowing was seen. PHOTIC STIMULATION AND HYPERVENTILATION: Photic stimulation did not reveal any abnormality. Hyperve ntilation was not performed. IMPRESSION: Normal electroencephalogram. No epileptiform activity seen in this electroencephalogram recording. Estefany Flores MD cc: [id number] TT: 09/11/2016 12:29:08 Confirmation # [id number] Dictation # [id number] en
--- NOTE | 2016-09-11 23:41 | PN ---
DATE: 09/10/2016 HISTORY OF PRESENT ILLNESS: The patient is an 80-year-old male admitted to the hospital with lower extremity edema and cellulitis. He has history of hypertension and diabetes mellitus, is noncompliant. He also has periods of confusion and dementia. No complaints of chest pain, no abdominal pain, no shortness of breath. He is being followed by podiatry. He is complaining of bilateral leg edema and erythema. REVIEW OF SYSTEMS: As per HPI. Rest of 12-point review of systems reviewed and negative. ALLERGIES: No known drug allergies. HOME MEDICATIONS: Aspirin, NovoLog, lisinopril, Lasix, potassium. PAST MEDICAL HISTORY: Diabetes mellitus type 2, hypertension, chronic leg edema. PERSONAL HISTORY: Nonsmoker. No history of alcohol abuse. SOCIAL HISTORY: Lives at home with daughter. FAMILY HISTORY: No positive family history in mother and father. PHYSICAL EXAMINATION: GENERAL: Comfortable in bed, in no acute distress. VITAL SIGNS: Stable. Temperature 98.7, heart rate is 80 per minute, blood pressure 130/70, respiratory rate 15 per minute, oxygen saturation 98% room air. HEENT: Normal. NECK: No lymphadenopathy. CHEST: Air entry present, equal bilateral. No added sound. CARDIOVASCULAR: S1, S2 normal. No murmur, no gallop. ABDOMEN: Soft, nontender, no hepatosplenomegaly. EXTREMITIES: Bilateral erythema present, 1+ edema. Stage I-II skin ulcers. NEUROLOGIC: No focal deficit. Awake, alert, oriented x 3. SKIN: As described above. SPINE: Normal. LYMPHADENOPATHY: None. LABORATORY DATA: White count 7.6, hemoglobin 13.1, hematocrit 39.7, platelet count 261. Sodium 130, potassium 3.9, glucose 383, calcium 8.3, alkaline phosphatase is 142, B12 317. ASSESSMENT: 1. Bilateral lower extremity cellulitis. 2. Diabetes mellitus. 3. Congestive heart failure. 4. Anemia. PLAN: Will continue insulin sliding scale. Continue Humalog mix 75/25 10 units b.i.d. We will continue Aricept 5 mg daily, Lasix 40 mg IV b.i.d., continue aspirin 81 mg daily. Anemia hemoglobin 11.5. Multifactorial due to chronic disease and might have iron deficiency. B12 level is borderline 317. TSH 2.3 within normal limits. We will continue to monitor hemoglobin and hematocrit. Blood sugars controlled on current meds. CHF- stable. Viviana Honeycutt MD cc: [id number] TT: 09/11/2016 23:40:57 Confirmation # [id number] Dictation # [id number] mn SHANTAL
--- NOTE | 2016-09-12 00:29 | PN ---
DATE: 09/11/2016 SUBJECTIVE: He is comfortable in bed, in no acute distress. He is very upset about the lower limb cellulitis, bilateral leg edema and erythema. Denies any shortness of breath, no chest pain. No cough with expectoration. He is currently on diuresis. Lower extremity edema has improved during hospitalization. REVIEW OF SYSTEMS: As per HPI. Rest of 12-point review of systems reviewed and negative. PHYSICAL EXAMINATION: GENERAL: Comfortable in bed, in no acute distress. VITAL SIGNS: Temperature 98.6, heart rate 80 per minute, blood pressure 130/80 , oxygen saturation 98% room air. HEENT: Normal. NECK: No lymphadenopathy. CARDIOVASCULAR: S1, S2 normal. No murmur, no gallop. CHEST: Air entry present, equal bilateral. No added sound. ABDOMEN: Soft, nontender, no hepatosplenomegaly. EXTREMITIES: Bilateral leg edema, bilateral erythema, stage I superficial ulceration, skin breakdown present. NEUROLOGIC: Awake, alert, oriented x 3, no focal sensorimotor deficit. LABORATORY DATA: Sodium 130, potassium 3.9, creatinine 1.3, glucose 388, total protein 6.1. Coags normal. White count 7.6, hemoglobin 13.1, . MEDICATIONS: Aspirin 81 mg daily, clotrimazole 30 gram topical b.i.d., Aricept 5 mg p.o. at bedtime, Lasix 40 mg IV b.i.d., insulin, K-Dur 20 mEq daily , lactic acid lotion 30 gram externally daily. ASSESSMENT: 1. Bilateral lower extremity cellulitis. 2. Congestive heart failure. 3. Diabetes mellitus type 2. 4. Anemia. PLAN: He is being followed by podiatry. He is currently on topical clotrimazole and lactic acid application. He is on aggressive diuresis with IV Lasix 40 mg b.i.d. We will continue K-Dur supplementation. He has chronic anemia. Hemoglobin and hematocrit stable. We will continue to monitor blood count. Diabetes mellitus, sugars are uncontrolled with current insulin regimen. We will consider increasing the insulin. Discussed with staff nurse. Discussed with the patient. Viviana Honeycutt MD cc: [id number] TT: 09/11/2016 23:56:13 Confirmation # [id number] Dictation # [id number] mn 09/11/2016 23:29:45 MTDD
[2016-09-12 05:49] VITALS: O2SAT 95
--- NOTE | 2016-09-12 08:16 | CP.PCM.PN ---
Subjective - Date & Time of Evaluation Date of Evaluation: 09/12/16 Time of Evaluation: 08:00 - Subjective Subjective: Stable on 2R. No CP or SOB. Edema better. V/S noted. RSR PE: Lungs: clear Cor.: S1S2, sys. murmur Abd.: soft Ext.: + edema Neuro.: alert BS's elevated: 300's BC x2 NG at 4 days Brain MRI noted: Limited Study LE venous Dopplers: Neg for DVT ABIs noted Objective - Vital Signs/Intake and Output Vital Signs (last 24 hours): Temp Pulse Resp BP Pulse Ox 98 F 64 20 178/75 H 95 09/12/16 05:48 09/12/16 05:48 09/12/16 05:48 09/12/16 05:48 09/12/16 05:48 Intake and Output: 09/12/16 09/12/16 06:59 18:59 Intake Total 240 Balance 240 - Medications Medications: Current Medications Aspirin (Ecotrin) 81 mg PO DAILY [facility] Last Admin: 09/11/16 11:00 Dose: 81 mg Clotrimazole (Lotrimin 1%) 30 gm TOP BID [facility] Last Admin: 09/11/16 17:51 Dose: Not Given Donepezil HCl (Aricept) 5 mg PO HS [facility] Last Admin: 09/11/16 22:54 Dose: 5 mg Furosemide (Lasix) 40 mg PO DAILY [facility] Insulin Human Regular (Humulin R Med) 0 units SC ACHS [facility] PRN Reason: Protocol Last Admin: 09/11/16 22:53 Dose: 2 units Insulin Lispro Protam/Lispro Human (Humalog Mix 75/25) 15 units SC BID [facility] Lactic Acid (Lac-Hydrin 12% Lotion (225 G)) 30 gm EXT DAILY [facility] Last Admin: 09/11/16 11:01 Dose: Not Given Lisinopril (Zestril) 40 mg PO DAILY [facility] Potassium Chloride (K-Dur 20 Meq Er Tab) 20 meq PO BID [facility] Last Admin: 09/11/16 17:59 Dose: 20 meq - Labs Labs: 09/10/16 08:00 09/10/16 08:00 PT 10.2 Seconds (9.9-11.8) 09/07/16 17:25 INR 0.94 (0.93-1.08) 09/07/16 17:25 APTT 24.3 Seconds (23.7-30.8) 09/07/16 17:25 Assessment and Plan - Assessment and Plan (Free Text) Plan: Assessment: LE Edema, R/O cellulitis HBP Moderate /MR on recent echo with NL LV fx. HBP Diabetes/Elevated BS's R/O dementia Plan: PO Lasix Adjust diabetes meds. Monitor: I/O, labs, sats, BS's, etc. As per neuro., podiatry, Dr. Radha SIMPSON as alan. Can D/C tel. Probably needs placement/protected environment/Hand Dry Cleaner Evaluation
[2016-09-12 08:22] LABS: BLOOD UREA NITROGEN 38 mg/dL (7-21); CALCIUM 7.8 mg/dL (8.4-10.5); CARBON DIOXIDE 29 mmol/L (21-33); CHLORIDE 97 mmol/L (98-107); GFR AFRICAN-AMERICAN > 60; GLUCOSE,RANDOM 238 mg/dL (70-110); SODIUM 132 mmol/L (132-148)
[2016-09-12] MEDS: Insulin Reg-MEDIUM-Coverage SC SCH ×3 (09:01→18:08)
[2016-09-12] MEDS ORDERED: Potassium Chloride 20 mEq ER Tab PO SCH (10:00)
[2016-09-12] MEDS: Ammonium Lactate 12% Lotion (225 g) EXT SCH (11:45)
[2016-09-12] MEDS: Clotrimazole 1% Cream(30 gm) TOP SCH ×2 (11:46→18:10)
[2016-09-12] MEDS: Insulin Lispro (humaLOG) MIX 75/25(10 ml) SC SCH ×2 (11:47→18:09)
--- NOTE | 2016-09-12 15:19 | DS ---
This is an 80-year-old male who had come into the hospital after he was found to have significant low er extremity edema and cellulitis. The patient had been on IV diuretic therapy and had improvement o f his symptoms. The patient was seen by cardiology. He has a new onset of dementia of the Alzheimer 's type that has been diagnosed. It is becoming harder for him to manage at home according to the [facility]. He has been noncompliant with his diabetes medications and sugars were significantly elevate d when he came to the hospital. He feels better. His swelling has improved. He has no complaints o f any chest pain or shortness of breath or headaches. PHYSICAL EXAMINATION: VITAL SIGNS: Temperature is 98, pulse of 64, blood pressure 178/75. GENERAL: The patient comfortable, in no acute distress. HEENT: Anicteric sclerae. Moist mucosa. NECK: No JVD or adenopathy. CARDIAC: S1/S2. No murmurs. No rubs. Regular. RESPIRATORY: Clear to auscultation bilaterally. No wheezes, rales, or rhonchi. Good air entry. ABDOMEN: Bowel sounds are positive, soft, nontender, and nondistended. EXTREMITIES: Lower extremity trace edema, chronic skin changes in the legs. ASSESSMENT: 1. Lower extremity edema, improved. 2. Acute congestive heart failure secondary to systolic dysfunction. 3. Nonadherence to medications. 4. Diabetes type 2, uncontrolled. 5. Hypertension, uncontrolled. 6. Dementia, Alzheimer's type. 8. natremia, improved. PLAN: The patient is currently on Lasix twice a day being followed. He is being followed by Dr. Anuja ball for the lower extremity edema. He is on aspirin. The patient will be placed on his lisinopril f or his hypertension. The patient is on 10 units of insulin. I will increase that to [address] control his sugars. I will see if he is interested in going to the transitional care unit. I wi ll speak to the patient's family as well as the patient. Physical therapy did evaluate the patient a nd suggested subacute rehab. I will see if he qualifies. CONDITION: Stable. ACTIVITIES: Increase as tolerated. Bruno S Radha MD cc: [id number] TT: 09/12/2016 15:09:18 fl 09/12/2016 14:18:47
[2016-09-12 18:58] VITALS: BP 132/60; RESP 18; TEMP 98.3
[2016-09-12 19:29] VITALS: PULSE 91
== END 2016-09-12 22:25 | DRG 602 ==
LOC: ED 16:45 → ERH 19:34 → 2RSO 21:55
PROVIDERS: ADMIT Internal Medicine Nephrology; ATTEND Internal Medicine Nephrology
PROC: 3E0234Z Introduction of Serum, Toxoid and Vaccine into Muscle, Percutaneous Approach (ICD-10-PCS; principal; 2016-09-07)
DX: L03.115 Cellulitis of right lower limb (principal); L03.116 Cellulitis of left lower limb; I11.0 Hypertensive heart disease with heart failure; I50.21 Acute systolic (congestive) heart failure; E87.1 Hypo-osmolality and hyponatremia; L97.811 Non-pressure chronic ulcer of other part of right lower leg limited to breakdown of skin; E11.622 Type 2 diabetes mellitus with other skin ulcer; E11.40 Type 2 diabetes mellitus with diabetic neuropathy, unspecified; E11.51 Type 2 diabetes mellitus with diabetic peripheral angiopathy without gangrene; E11.65 Type 2 diabetes mellitus with hyperglycemia; G30.9 Alzheimer's disease, unspecified; F02.80 Dementia in other diseases classified elsewhere, unspecified severity, without behavioral disturbance, psychotic disturbance, mood disturbance, and anxiety; I08.3 Combined rheumatic disorders of mitral, aortic and tricuspid valves; D64.9 Anemia, unspecified; Z79.82 Long term (current) use of aspirin; Z79.84 Long term (current) use of oral hypoglycemic drugs; Z91.14 Patient's other noncompliance with medication regimen; Z23 Encounter for immunization

== ENCOUNTER 2016-10-04 19:17 | Inpatient (IN) | payer MEDICARE ==
[2016-10-04 19:27] VITALS: BMI 26.6
--- NOTE | 2016-10-04 19:56 | ED PDOC ---
Arrival/HPI - General Chief Complaint: Lower Extremity Problem/Injury Time Seen by Provider: 10/04/16 19:19 - History of Present Illness Narrative History of Present Illness (Text): 10/04/16 19:51 pt present s with bilateral leg swelling and mild sob and elevated glucose denies chest pain or fever or chills of trauma , onset times one week getting worst Past Medical History - Provider Review Nursing Documentation Reviewed: Yes - Infectious Disease Hx of Infectious Diseases: None - Cardiac Hx Cardiac Disorders: Yes Hx Congestive Heart Failure: Yes Hx Hypertension: Yes - Pulmonary Hx Respiratory Disorders: No - Neurological Hx Neurological Disorder: No Hx Dementia: Yes - HEENT Hx HEENT Disorder: Yes (eyeglasses) - Renal Hx Renal Disorder: No - Endocrine/Metabolic Hx Diabetes Mellitus Type 1: Yes - Hematological/Oncological Hx Blood Disorders: No - Integumentary Other/Comment: b/l arms skin discolorations, ble bright red multiple foul smelling weeping wounds, dry skin pitting edema - Musculoskeletal/Rheumatological Hx Falls: No - Gastrointestinal Hx Gastrointestinal Disorders: No - Genitourinary/Gynecological Hx Hematuria: Yes - Psychiatric Hx Psychophysiologic Disorder: No Hx Substance Use: No - Anesthesia Hx Anesthesia: No Family/Social History - Physician Review Nursing Documentation Reviewed: Yes Family/Social History: No Known Family HX Smoking Status: Never Smoked Hx Alcohol Use: No Hx Substance Use: No Allergies/Home Meds Allergies/Adverse Reactions: Allergies No Known Allergies Allergy (Verified 10/04/16 19:30) Home Medications: Home Meds Medication Instructions Recorded Confirmed Aspirin [Ecotrin] 325 mg PO DAILY 05/30/16 09/07/16 Insulin Aspart/Insulin Aspar 10 units SC BID 05/30/16 10/04/16 [Novolog Mix 70/30 (70/30 units/ml)] Lisinopril [Zestril] 40 mg PO DAILY 05/30/16 10/04/16 Furosemide [Lasix] 40 mg PO BID 09/07/16 10/04/16 Potassium Chloride [Klor-Con 10] 20 meq PO BID 09/07/16 10/04/16 Review of Systems - Review of Systems Constitutional: Normal Eyes: Normal ENT: Normal Respiratory: SOB Cardiovascular: absent: Chest Pain Gastrointestinal: absent: Abdominal Pain Genitourinary Male: Normal Musculoskeletal: absent: Myalgias Skin: Cellulitis, Other (leg swelling) Neurological: Normal Endocrine: Normal Hemo/Lymphatic: Normal Psychiatric: Normal Physical Exam Vital Signs Reviewed: Yes Vital Signs Temp Pulse Resp BP Pulse Ox 10/05/16 00:56 100 H 24 167/99 H 96 10/04/16 22:22 103 H 26 H 158/92 H 93 L 10/04/16 20:59 169/90 H 10/04/16 19:24 97.6 F 84 24 195/97 H 96 Temperature: Afebrile Blood Pressure: Hypertensive Pulse: Regular Respiratory Rate: Normal Appearance: Positive for: Well-Appearing, Non-Toxic, Comfortable Pain Distress: None Mental Status: Positive for: Alert and Oriented X 3 Finger Stick Blood Glucose: 470 - Systems Exam Head: Present: Atraumatic, Normocephalic Pupils: Present: PERRL Extroacular Muscles: Present: EOMI Conjunctiva: Present: Normal Mouth: Present: Moist Mucous Membranes Neck: Present: Normal Range of Motion Respiratory/Chest: Present: Good Air Exchange, Rales (at bases). No: Respiratory Distress, Accessory Muscle Use Cardiovascular: Present: Regular Rate and Rhythm, Normal S1, S2. No: Murmurs Abdomen: Present: Normal Bowel Sounds. No: Tenderness, Distention, Peritoneal Signs Back: Present: Normal Inspection Upper Extremity: Present: Normal Inspection. No: Cyanosis, Edema Lower Extremity: Present: Edema (4 plus), Swelling, Erythema, Neurovascularly Intact Neurological: Present: GCS=15, CN II-XII Intact, Speech Normal Skin: Present: Warm, Dry, Normal Color. No: Rashes Psychiatric: Present: Alert, Oriented x 3, Normal Insight, Normal Concentration Medical Decision Making ED Course and Treatment: 10/04/16 23:[address] Garcia who is aware and agrees with the plan to admit patient to telemetry for CHF. Accepts patient under his service. 10/07/16 02:23 - Lab Interpretations Microbiology Results: Microbiology Results 10/04/16 21:16 Blood-Venous Blood Culture - Preliminary NO GROWTH AFTER 48 HOURS 10/04/16 20:46 Blood-Venous Blood Culture - Preliminary NO GROWTH AFTER 48 HOURS 10/04/16 21:15 Urine,Clean Catch Urine Culture - Preliminary Gram Negative Ernie Lab Results: 10/04/16 20:46 10/04/16 21:55 Lab Results 10/05/16 07:45: POC Glucose (mg/dL) 370 H 10/05/16 06:30: Troponin I 0.09 D 10/04/16 21:55: Sodium 127 L, Potassium 4.2, Chloride 98, Carbon Dioxide 25, Anion Gap 8 L, BUN 32 H, Creatinine 1.1, Est GFR ( Amer) > 60, Est GFR ( Non-Af Amer) > 60, Random Glucose 459 H* D, Calcium 8.2 L, Total Bilirubin 0.9, AST 18, ALT 30, Alkaline Phosphatase 142 H, Lactate Dehydrogenase 439, Total Creatine Kinase 79, Troponin I 0.07 D, NT-Pro-B Natriuret Pep 5720 H, Total Protein 6.0, Albumin 2.4 L, Globulin 3.6, Albumin/Globulin Ratio 0.7 L 10/04/16 21:15: Urine Color Yellow, Urine Appearance Clear, Urine pH 6.0, Ur Specific Hyden 1.020, Urine Protein >=300 H, Urine Glucose (UA) Negative, Urine Ketones Trace H, Urine Blood Moderate H, Urine Nitrate Negative, Urine Bilirubin Negative, Urine Urobilinogen 0.2, Ur Leukocyte Esterase Negative, Urine RBC 10 - 15, Urine WBC 0 - 2, Ur Epithelial Cells None, Urine Bacteria Mod 10/04/16 20:46: WBC 5.6 D, RBC 3.74, Hgb 11.2 L, Hct 32.1 L, MCV 85.8, MCH 29.9 , MCHC 34.9, RDW 13.2, Plt Count 205, MPV 11.4 H, Gran % 74.3 H, Lymph % (Auto) 17.8 L, Morrow % (Auto) 5.6, Eos % (Auto) 1.8, Baso % (Auto) 0.5, Gran # 4.12, Lymph # 1.0 L, Morrow # 0.3, Eos # 0.1, Baso # 0.03, PT 10.5, INR 0.97, APTT 26.1 , pO2 56 H, VBG pH 7.36, VBG pCO2 46.0, VBG HCO3 26.0, VBG Total CO2 27.4, VBG O2 Sat (Calc) 92.8 H, VBG Base Excess 0.1, VBG Potassium 4.9, Glucose 494 H* D, Lactate 1.1, FiO2 21.0, Sodium 131.0 L, Chloride 103.0, Venous Blood Potassium 4.9 10/04/16 19:28: POC Glucose (mg/dL) 470 H* I have reviewed the lab results: Yes - RAD Interpretation Radiology Orders: 10/04/16 19:39 DUPLEX LOWER EXTRM VEIN BILAT [US] Stat 10/04/16 22:31 CHEST PORTABLE [RAD] Stat - EKG Interpretation EKG Interpretation (Text): 10/04/16 19:56 sinus with pac, nssts cnages rate 92 Interpreted by ED Physician: Yes Type: 12 lead EKG - Medication Orders Current Medication Orders: Clonazepam (Klonopin) 0.25 mg PO AMHS [facility] PRN Reason: Protocol Last Admin: 10/06/16 23:07 Dose: 0.25 MG Furosemide (Lasix) 40 mg IVP DAILY [facility] Last Admin: 10/06/16 09:02 Dose: 40 MG MAR Blood Pressure Document 10/06/16 09:02 Marc (Rec: 10/06/16 09:03 [id number]) Blood Pressure Blood Pressure (100/60-150/90) 161/91 IVP Administration Document 10/06/16 09:02 Marc (Rec: 10/06/16 09:03 [id number]) Charges for Administration # of IVP Administrations 1 Haloperidol (Haldol) 0.5 mg PO Q6 PRN; Protocol PRN Reason: Agitation Insulin Human Lispro (Humalog Low) 0 units SC ACHS [facility] PRN Reason: Protocol Last Admin: 10/06/16 23:07 Dose: Not Given Non-Admin Reason: Blood Sugar Parameter MAR Blood Glucose Document 10/06/16 23:07 KT (Rec: 10/06/16 23:07 KT [id number]) Blood Glucose Finger Stick Blood Glucose (70-120) 85 Insulin Lispro Protam/Lispro Human (Humalog Mix 75/25) 24 units SC ACD [facility] Last Admin: 10/06/16 17:07 Dose: 24 UNIT MAR Blood Glucose Document 10/06/16 17:07 Marc (Rec: 10/06/16 17:08 [id number]) Blood Glucose Finger Stick Blood Glucose (70-120) 274 Subcutaneous Administrations Document 10/06/16 17:07 PRADEEP (Rec: 10/06/16 17:08 Marc [id number]) Injection Site MAR Injection Site Left Deltoid Charges for Administration # of Subcutaneous Administrations 1 Insulin Lispro Protam/Lispro Human (Humalog Mix 75/25) 30 units SC ACB [facility] Lisinopril (Zestril) 40 mg PO DAILY [facility] Last Admin: 10/06/16 09:02 Dose: 40 MG Discontinued Medications Alprazolam (Xanax) 0.25 mg PO BID [facility] PRN Reason: Protocol Stop: 10/12/16 10:01 Last Admin: 10/05/16 10:20 Dose: 0.25 MG Re-Assess: Reassess Psych Meds Document 10/05/16 11:20 SHIREEN (Rec: 10/05/16 11:27 SHIREEN [id number]) Reassess Psych Med Effective Furosemide (Lasix) 40 mg IVP ONCE ONE Stop: 10/04/16 19:53 Last Admin: 10/04/16 20:59 Dose: 40 MG MAR Blood Pressure Document 10/04/16 20:59 MR (Rec: 10/04/16 20:59 [facility] [id number] Blood Pressure Blood Pressure (100/60-150/90) 169/90 IVP Administration Document 10/04/16 20:59 MR (Rec: 10/04/16 20:59 MR [facility] [id number]) Charges for Administration # of IVP Administrations 1 Haloperidol (Haldol) 0.25 mg PO Q6 PRN; Protocol PRN Reason: Agitation Last Admin: 10/05/16 15:32 Dose: 0.25 MG Re-Assess: Reassess Psych Meds Document 10/05/16 16:32 SHIREEN (Rec: 10/05/16 17:12 [place]IREEN [facility] [id number] Reassess Psych Med Ineffective-LIP notifed Insulin Human Regular (Humulin R) 8 units SC STAT STA Stop: 10/04/16 21:09 Last Admin: 10/04/16 21:36 Dose: 8 UNITS Subcutaneous Admin in ER Document 10/04/16 21:36 MR (Rec: 10/04/16 21:36 MR [facility] [id number] Injection Site MAR Injection Site Left Abdomen Subcutaneous Administrations Document 10/04/16 21:36 MR (Rec: 10/04/16 21:36 [id number] Charges for Administration # of Subcutaneous Administrations 1 Insulin Human Regular (Humulin R High) 0 units SC ACHS [facility] PRN Reason: Protocol Last Admin: 10/05/16 11:30 Dose: 4 UNITS MAR Blood Glucose Document 10/05/16 11:30 SHIREEN (Rec: 10/05/16 11:30 SHIREEN [id number]) Blood Glucose Finger Stick Blood Glucose (70-120) 228 Subcutaneous Administrations Document 10/05/16 11:30 SHIREEN (Rec: 10/05/16 11:30 SHIREEN [id number]) Charges for Administration # of Subcutaneous Administrations 1 Insulin Lispro Protam/Lispro Human (Humalog Mix 75/25) 10 units SC BID [facility] Last Admin: 10/05/16 10:18 Dose: 10 UNITS MAR Blood Glucose Document 10/05/16 10:18 SHIREEN (Rec: 10/05/16 10:19 SHIREEN [id number]) Blood Glucose Finger Stick Blood Glucose (70-120) 370 Subcutaneous Administrations Document 10/05/16 10:18 SHIREEN (Rec: 10/05/16 10:19 SHIREEN [id number]) Charges for Administration # of Subcutaneous Administrations 1 Insulin Lispro Protam/Lispro Human (Humalog Mix 75/25) 24 units SC ACB [facility] Last Admin: 10/06/16 08:59 Dose: 24 UNITS MAR Blood Glucose Document 10/06/16 08:59 JJ (Rec: 10/06/16 09:00 [id number]) Blood Glucose Finger Stick Blood Glucose (70-120) 275 Subcutaneous Administrations Document 10/06/16 08:59 JJ (Rec: 10/06/16 09:00 [id number]) Injection Site MAR Injection Site Right Abdomen Charges for Administration # of Subcutaneous Administrations 1 Insulin Lispro Protam/Lispro Human (Humalog Mix 75/25) 18 units SC ACD [facility] Last Admin: 10/05/16 17:33 Dose: 18 UNITS MAR Blood Glucose Document 10/05/16 17:33 SHIREEN (Rec: 10/05/16 17:33 [id number] Blood Glucose Finger Stick Blood Glucose (70-120) 221 Subcutaneous Administrations Document 10/05/16 17:33 SIHREEN (Rec: 10/05/16 17:33 SHIREEN [facility] [id number] Charges for Administration # of Subcutaneous Administrations 1 Lorazepam (Ativan) 0.5 mg IVP ONCE ONE PRN Reason: Protocol Stop: 10/04/16 21:27 Last Admin: 10/04/16 21:34 Dose: 0.5 MG Behavioural Document 10/04/16 21:34 MR (Rec: 10/04/16 21:35 MR [facility] [id number]) Maintenance Maintenance Dose Yes IVP Administration Document 10/04/16 21:34 MR (Rec: 10/04/16 21:35 MR [facility] [id number]) Charges for Administration # of IVP Administrations 1 Lorazepam (Ativan) 0.5 mg IVP ONCE ONE PRN Reason: Protocol Stop: 10/05/16 16:29 Last Admin: 10/05/16 16:38 Dose: 0.5 MG IVP Administration Document 10/05/16 16:38 SHIREEN (Rec: 10/05/16 16:39 SHIREEN [facility] [id number] Charges for Administration # of IVP Administrations 1 Re-Assess: Reassess Psych Meds Document 10/05/16 17:08 SHIREEN (Rec: 10/05/16 17:12 SHIREEN [facility] [id number] Reassess Psych Med Effective Disposition/Present on Arrival - Present on Arrival Any Indicators Present on Arrival: No History of DVT/PE: No History of Uncontrolled Diabetes: Yes Urinary Catheter: No History of Decub. Ulcer: No History Surgical Site Infection Following: None - Disposition Have Diagnosis and Disposition been Completed?: Yes Diagnosis: Congestive heart failure (CHF) Disposition: HOSPITALIZED Disposition Time: 23:20 Condition: GOOD
[2016-10-04 21:02] LABS: ADD MANUAL DIFF? NO
[2016-10-04 21:05] LABS: VENOUS BLOOD GAS BASE EXCESS 0.1 mmol/L (0.0-2.0); VENOUS BLOOD PH 7.36 (7.32-7.43)
[2016-10-04 21:06] LABS: BASO # 0.03 K/mm3 (0.0-2.0); BASO % 0.5 % (0.0-3.0); EOS # 0.1 (0.0-0.7); EOS % 1.8 % (1.5-5.0); GRAN # 4.12 (1.4-6.5); GRAN % 74.3 % (50.0-68.0); HEMATOCRIT 32.1 % (42.0-52.0); LYMPH % 17.8 % (22.0-35.0); MEAN CELL VOLUME 85.8 fL (80.0-105.0); MEAN CORPUSCULAR HEMOGLOBIN 29.9 pg (25.0-35.0); MEAN CORPUSCULAR HGB CONC 34.9 g/dl (31.0-37.0); MEAN PLATELET VOLUME 11.4 fl (7.0-11.0); MONO # 0.3 (0.1-0.6); MONO % 5.6 % (1.0-6.0); PLATELET COUNT 205 10^3/uL (120.0-450.0); RED CELL DISTRIBUTION WIDTH 13.2 % (11.5-14.5); WHITE BLOOD COUNT 5.6 10^3/ul (4.5-11.0)
[2016-10-04] MEDS ORDERED: Insulin Regular 1 UNITS/0.01 ML ML SC STA (21:08)
[2016-10-04 21:22] LABS: INR 0.97 (0.93-1.08); PARTIAL THROMBOPLASTIN TIME 26.1 Seconds (23.7-30.8)
[2016-10-04 21:31] LABS: URINE BILIRUBIN NEGATIVE (NEGATIVE); URINE BLOOD MODERATE (NEGATIVE); URINE GLUCOSE (UA) NEGATIVE (NEGATIVE); URINE KETONE TRACE mg/dL (NEGATIVE); URINE LEUKOCYTE ESTERASE NEGATIVE Leu/uL (NEGATIVE); URINE PROTEIN >=300 mg/dL (<30 mg/dL); URINE UROBILINOGEN 0.2 E.U./dL (<1 E.U./dL)
[2016-10-04 21:32] LABS: URINE APPEARANCE CLEAR (CLEAR); URINE COLOR YELLOW (YELLOW)
[2016-10-04 21:36] LABS: URINE BACTERIA MOD (NEG); URINE WBC 0 - 2 /hpf (0-6)
[2016-10-04 22:36] LABS: ALB/GLOB RATIO 0.7 (1.1-1.8); ALKALINE PHOSPHATASE 142 U/L (38-133); ALT/SGPT 30 U/L (7-56); AST/SGOT 18 U/L (15-59); BILIRUBIN,TOTAL 0.9 mg/dL (0.2-1.3); BLOOD UREA NITROGEN 32 mg/dL (7-21); CALCIUM 8.2 mg/dL (8.4-10.5); CARBON DIOXIDE 25 mmol/L (21-33); CHLORIDE 98 mmol/L (98-107); GFR AFRICAN-AMERICAN > 60; POTASSIUM 4.2 mmol/L (3.6-5.0); SODIUM 127 mmol/L (132-148)
[2016-10-04 22:42] LABS: GLUCOSE,RANDOM 459 mg/dL (70-110)
[2016-10-04 22:47] LABS: TROPONIN I 0.07 ng/mL
[2016-10-05] MEDS: Insulin Reg-HIGH-Coverage SC SCH ×2 (08:02→11:30)
--- NOTE | 2016-10-05 09:04 | US ---
HISTORY: Leg pain and swelling. Evaluate for DVT PHYSICIAN(S): Giovani Matute MD. TECHNIQUE: Duplex sonography and color-flow Doppler with graded compression were used to evaluate the deep venous systems of both lower extremities. The exam is very limited by edema. The lower femoral veins and tibial veins are not adequately seen. FINDINGS: The visualized deep venous systems of both lower extremities are sonographically normal and compressible. Normal wave forms and augmentation are seen. There is no sonographic evidence for deep venous thrombosis in the visualized segments of both lower extremities. IMPRESSION: No sonographic evidence for deep venous thrombosis in the visualized segments of both lower extremities. Very limited study.
--- NOTE | 2016-10-05 09:26 | HP ---
CHIEF COMPLAINT AND HISTORY OF PRESENT ILLNESS: This is an 80-year-old male who is coming in to the hospital. He says he is complaining of dizziness. He was having lower extremity swelling. The susan ent is not sure about the details. I spoke to the patient's daughter, Rissa, to get an update on the patient at home. The patient was discharged from the hospital on 09/12/2016. He had gone to [facility] for subacute rehab. He was discharged, but the patient's daughter states he was not given any prescriptions for his insulin. The patient has no complaints of any headaches or dizziness. She said that the dizziness started aft er he came home. The patient has been upset because he prefers to go home. He says he is not being treated properly. He says he has not received any meals. He came in yesterday after dinner when he was admitted, and so he is waiting for breakfast. REVIEW OF SYSTEMS: Review of symptoms is limited because of the patient's underlying confusion and a gitation. MEDICATIONS: Previous medications were NovoLog 70/30, aspirin, lisinopril, Lasix. PAST MEDICAL HISTORY: 1. CHF secondary to systolic dysfunction, stable. 2. Diabetes type 2. 3. Hypertension. 4. Dementia, Alzheimer's type. 5. Hyponatremia. SOCIAL HISTORY: He does not smoke or drink. He lives with his daughter. PHYSICAL EXAMINATION: VITAL SIGNS: Temperature is 98.6, pulse of 98. Blood pressure is 181/96, respirations 20, O2 satura tion 98%. Height is 5 feet 5 inches. Weight is 160 pounds. BMI is 26. GENERAL: The patient is lying in bed, flat, and in no apparent distress. HEAD AND NECK EXAM: Atraumatic, normocephalic. Conjunctivae are pink. Throat clear and mouth with moist mucosa. Oropharynx benign. EYES: Extraocular movements are intact. PERRLA. NECK: Supple. No JVD, thyromegaly, or adenopathy. No bruits. HEART: S1 and S2 regular rate and rhythm. No murmurs, rubs, or gallops. LUNGS: Clear to auscultation bilaterally. No wheezing rales or rhonchi appreciated. No retraction s on exam. ABDOMEN: Soft, nontender, nondistended. Bowel sounds are positive in all quadrants. No rebound. No hepatosplenomegaly. : No CVA tenderness VASCULAR: 2+ pulses in carotid and pedal pulses. SKIN: No erythema or abnormal nodules noted. SPINE: Normal curvature. LYMPHADENOPATHY: No anterior cervical or posterior cervical adenopathy. No inguinal adenopathy. PSYCHIATRIC: Unable to assess. The patient is agitated. He denies any hallucinations. NEUROLOGIC: Unable to assess as the patient is agitated. In the neurological, he is able to move al l 4 extremities. EXTREMITIES: In the lower extremity, there is bilateral erythema. There is lower extremity swelling. It was 2+ with weeping of fluid. LABORATORY DATA: Sodium is 127. The bicarb is 25. Creatinine is 1.1. Glucose is 459. Alk phos of 142. Albumin is 2.4. White count of 5.6, hemoglobin 11.2. Platelet count is 205. INR is 0.97. p H is 7.36 with a PaO2 of 56. pCO2 is 27. Bicarb is 25 with an anion gap of 8. Urine shows ketones are trace; blood is moderate. Lower extremity Dopplers are pending. ASSESSMENT: 1. Agitation. 2. Diabetes type 2, uncontrolled. 3. Lower extremity cellulitis. 4. Lower extremity edema. 5. Hyponatremia. 6. Dementia, Alzheimer's type. PLAN: The patient has blood cultures, and urine cultures have been ordered. I will place the patien t on insulin. The patient is going to be placed on Xanax for his agitation. I will get cardiology e valuation, as well as a psychiatric evaluation. I spoke to the patient's daughter at length to give her an update on the patient's diagnosis and plan of care. The patient is going to be placed on Zest ril. His high blood pressure may also be secondary to being agitated. We will continue to follow iza powlel. Bruno Garcia MD cc: [id number] TT: 10/05/2016 09:25:52 herb
[2016-10-05] MEDS ORDERED: Insulin Lispro (humaLOG) MIX 75/25(10 ml) SC SCH ×2 (10:00→16:30)
--- NOTE | 2016-10-05 14:59 | CON ---
DATE: 10/05/2016 The patient is an 80-year-old, , [place] male who was admitted for dizziness as well as lower extremity swelling, and psychiatry was consulted due to the patient's confusion and agitation on the unit. Apparently, patient has been difficult and demanding and difficult to redirect by staff member s and patient can be loud and , difficult to redirect. He has also been taking up a lot of time of nursing staff due to his impulsive behavior and restlessness. I met with patient at bedside and he is superficially cooperative and pleasant, though can be loud and defensive. He is aware that he is in the hospital, guessed that it was August and does not know what year it is. He denies being con fused despite admitting that he did not know what year it was. He denies having any psychosis, hallu cinations. Denies feeling paranoid that staff members are out to harm him and when we asked about de pression, he "I don't know, who knows". The patient does not want to hurt himself, does not wa nt to kill himself and patient indicates he wants to live. He denies having any psychiatric history whatsoever. As noted, he becomes defensive during my questioning. He indicates that he has been adm itted to the hospital for treatment of his diabetes because he has been sick and he indicates willing ness to cooperate with treatment team recommendations. Active delusions were not elicited, although as noted, he is defensive and I cannot rule out the presence of delusions. Insight and judgment are considered to be poor to fair. Impulse control is unpredictable at this time. PSYCHIATRIC HISTORY: The patient denies having any psychiatric history, suicide attempts, outpatient treatment or medication trials. SOCIAL HISTORY: The patient was born and raised in [place]. He indicates that he is and he trivedi s 2 children, a son and a daughter. He is unemployed. He is a retired auto electrician. Denies any drug or alcohol issues throughout his life. VITAL SIGNS: Reviewed and at 12:42 p.m., they were 98.2, 98, 176/75 and 21. LABORATORIES: Were also reviewed by this provider and glucose was elevated at admission. RELEVANT PSYCHIATRIC MEDICATIONS: Include Xanax 0.25 mg p.o. b.i.d. IMPRESSION: Delirium. Possible adjustment disorder with anxiety and depression. RECOMMENDATIONS: We will, at this time, switch Xanax to a longer acting medication such as Klonopin at a dose of 0.25 mg twice daily to help with behavior on the unit. We will also provide Haldol 0.25 mg q. 6 p.r.n. for agitation. We will continue to follow up with patient on the unit to monitor his behavior and mental status, and will also consider a diagnosis of dementia if warranted. However, t he patient does have enough medical issues that can be contributing to his current presentation. I d o recommend that staff members reorient patient multiple times a day as well as reassure him about ou r level of commitment and care for him. Alesia Kirk MD cc: [id number] TT: 10/05/2016 14:58:31 Confirmation # [id number] Dictation # [id number] en
--- NOTE | 2016-10-05 15:16 | CON ---
DATE: 10/05/2016 REQUESTING PHYSICIAN: Dr. Garcia. REASON FOR CONSULTATION: Edema. HISTORY OF PRESENT ILLNESS: This is an 80-year-old man with a history of hypertension, diabetes, kno wn to us from prior admissions. He has a history of moderate aortic stenosis and moderate mitral reg urgitation. He has apparently a history of noncompliance with medications in the past. He was recen tly admitted last month with leg edema and now presents with the same complaint. He is seen resting comfortably on telemetry. He denies any chest pain. He does have exertional dyspnea. PAST MEDICAL HISTORY: Notable for the problems mentioned above. He reportedly has a history of mild dementia as well. CURRENT MEDICATIONS: Include Haldol p.r.n., insulin coverage, Klonopin, Lasix 40 mg daily, and Zestr il 40 mg daily. ALLERGIES: None. SOCIAL HISTORY: Does not smoke or drink. He lives at home alone and is checked on by his daughter. FAMILY HISTORY: He cannot recall. REVIEW OF SYSTEMS: A 10-point review of systems was unremarkable. PHYSICAL EXAMINATION: GENERAL: He is an elderly man who appears comfortable at rest. VITAL SIGNS: His blood pressure is 180/90 with a pulse of 110 in sinus, respirations are 16. He is afebrile. HEENT: Normocephalic, atraumatic. Pupils equal and reactive to light and accommodation. NECK: Supple. No JVD. Carotid upstrokes are diminished and delayed. CHEST: Diminished breath sounds at the bases. HEART: PMI displaced laterally with a III/ midpeaking systolic murmur at the base. A systolic mur mur was also noted at the lower left sternal border and apex. ABDOMEN: Soft, mildly obese, nontender, normoactive bowel sounds. EXTREMITIES: 2 to 3+ bilateral lower extremity edema with chronic cellulitic changes noted. PSYCHIATRIC: Somewhat of a flat affect. NEUROLOGIC: Oriented to person, place and time. No gross motor or sensory deficit noted. DIAGNOSTIC DATA: White count is 5.6, hemoglobin and hematocrit are 11.2 and 32.1, with a platelet co unt of 205,000. Potassium 4.2, sodium 127, BUN and creatinine are 32 and 1.1, glucose 228. BNP 5720 , troponin 0.07 and repeat is 0.09. Electrocardiogram reveals sinus rhythm with supraventricular pre mature beats. A prior anteroseptal wall myocardial infarction pattern cannot be excluded. Nonspecif ic ST-T abnormalities are present. Chest x-ray is pending. Lower extremity venous duplex scans were performed showing no clear evidence of deep vein thrombosis. IMPRESSION: 1. Lower extremity edema, likely due to noncompliance with medications and valvular heart disease. 2. Moderate aortic stenosis. 3. Mitral and tricuspid regurgitation. 4. Diabetes, hypertension with poor control. RECOMMENDATIONS: IV Lasix should be continued. Attempts to improve blood pressure control advisable . ANTHONY inhibitor may need to be withheld while undergoing diuresis to avoid worsening renal insuffici ency. Sodium and fluid restriction are advised given his hyponatremia. Close monitoring of his elec trolytes and renal function is advised. Thank you for this consultation. I will be happy to follow along through his hospital course. Ike Reynolds MD cc: [id number] TT: 10/05/2016 15:15:25 Confirmation # [id number] Dictation # [id number] pr
--- NOTE | 2016-10-05 16:08 | CON ---
DATE: 10/05/2016 ROOM: 272 HISTORY OF PRESENT ILLNESS: This is an 80-year-old male with known history of type 2 insulin-requiri ng diabetes, presenting here with progressive shortness of breath and associated leg edema has been e valuated to be in congestive heart failure and is now being referred for diabetic evaluation because of marked hyperglycemic accelerations as noted thereof. PAST MEDICAL HISTORY: History of type 2 insulin-requiring diabetes on a premixed insulin combination with Humalog 75/25 taken as 10 units twice a day as noted, history of hypertensive cardiovascular di sease and dyslipidemia. SOCIAL HISTORY: The patient has supportive family. No known substance use. REVIEW OF SYSTEMS: As mentioned above. Admits to generalized body weakness with easy fatigability a nd tiredness and suboptimal energy level. Also admits to progressive shortness of breath initially o n exertion and then at rest with paroxysmal nocturnal dyspnea. His oral intake has been variable and suboptimal with nausea, dyspepsia, and vomiting episodes with lower extremity paresthesias. PHYSICAL EXAMINATION: GENERAL: This is an overweight male in no apparent distress. VITAL SIGNS: Blood pressure of 150/90, pulse of 70 beats per minute and regular, temperature 99, res pirations 20. Height is 5 feet 5 inches. Weight is 202 pounds. HEENT: Head normocephalic. Eyes anicteric with pink conjunctivae. Fundoscopy not possible at this time. Ears, nose and throat otherwise normal. NECK: Supple. Thyroid gland is normal size. No carotid bruits or any cervical adenopathy. CARDIOPULMONARY: Has an adynamic precordium. S1, S2 is rapid and regular. LUNGS: Clear to auscultation. ABDOMEN: Obese, soft with positive bowel sounds. EXTREMITIES: There is +2 bipedal edema and there is also hyperpigmentation in the distal one-third o f both legs with maculopapular lesions as noted. LABORATORY DATA: The chemistries showed a BUN of 32, sodium 127, potassium 4.2, chloride 98, CO2 of 25, glucose 459 and creatinine 1.1. The initial glucose was 470 and subsequent glucoses have ranged from 228-370 mg/dL. The proBNP is 5720. ASSESSMENT: This is an 80-year-old male with uncontrolled and decompensated type 2 insulin-requiring diabetes, presenting here with congestive heart failure and supervening marked hyperglycemic acceler ations as noted thereof. PLAN OF MANAGEMENT: As discussed with the patient and staff, we will modify his current insulin kt men and increase the premixed dose regimen with Humalog 75/25 given at the higher dose of 24 units be fore meals breakfast and 18 units before meals dinner as ordered. We will modify the coverage scale with Humalog insulin as ordered and we will titrate incrementally as indicated to optimize metabolic control. We will obtain serial chemistries and supplement accordingly as needed. We will follow. Marisabel Saenz MD cc: [id number] TT: 10/05/2016 16:08:07 Confirmation # [id number] Dictation # [id number] sn
--- NOTE | 2016-10-05 16:14 | CARD ---
APPROVED REPORT EKG Measurement Heart [id number] ME [id number] <Conclusion> Sinus rhythm with premature atrial complexes Anterior WA, age unknown NSSTW changes
[2016-10-05] MEDS: Insulin Lispro (humaLOG) LOW Coverage SC SCH ×2 (17:13→22:30)
[2016-10-06] MEDS ORDERED: Insulin Lispro (humaLOG) MIX 75/25(10 ml) SC SCH ×2 (07:30→12:57)
--- NOTE | 2016-10-06 08:03 | PN ---
DATE: 10/06/2016 SUBJECTIVE: The patient has no complaints of any chest pain, no shortness of breath, no headaches, n o dizziness. He is asking about going home. He gets agitated at times. PHYSICAL EXAMINATION: VITAL SIGNS: Temperature is 98.4, pulse of 81, blood pressure is 162/73, respirations 18. GENERAL: The patient comfortable, in no acute distress. HEENT: Anicteric sclerae. Moist mucosa. NECK: No JVD or adenopathy. CARDIAC: S1/S2. No murmurs. No rubs. Regular. RESPIRATORY: Clear to auscultation bilaterally. No wheezes, rales, or rhonchi. Good air entry. ABDOMEN: Bowel sounds are positive, soft, nontender, and nondistended. EXTREMITIES: No edema. Has 1+ pulses. ASSESSMENT: 1. Agitation. 2. Diabetes type 2, uncontrolled. 3. Hyponatremia, secondary to uncontrolled diabetes. 4. Lower leg cellulitis. 5. Lower extremity edema. 6. Dementia, Alzheimer's type. 7. Aortic stenosis, moderate. 8. Tricuspid regurgitation. 9. Also noncompliance. The patient was seen by psychiatry. I did review their note, appreciate their input. The patient trivedi s been placed on Humalog for his diabetes. PLAN: I did have a long discussion with the patient's daughter to give her an update. The patient w as given an extra dose of Ativan yesterday because of being agitated. The patient is on Lasix daily. He is on lisinopril for his hypertension. We will continue to follow closely. Bruno Garcia MD cc: [phone] TT: 10/06/2016 08:03:42 Confirmation # [id number] Dictation # [id number] en
[2016-10-06] MEDS: Insulin Lispro (humaLOG) LOW Coverage SC SCH ×4 (08:53→23:07)
[2016-10-06 09:17] LABS: HEMATOCRIT 33.9 % (42.0-52.0); MEAN CELL VOLUME 86.9 fL (80.0-105.0); MEAN CORPUSCULAR HEMOGLOBIN 29.5 pg (25.0-35.0); MEAN CORPUSCULAR HGB CONC 33.9 g/dl (31.0-37.0); RED CELL DISTRIBUTION WIDTH 13.6 % (11.5-14.5); WHITE BLOOD COUNT 5.6 10^3/ul (4.5-11.0)
[2016-10-06 09:29] LABS: ALB/GLOB RATIO 0.7 (1.1-1.8); ALKALINE PHOSPHATASE 111 U/L (38-133); ALT/SGPT 32 U/L (7-56); AST/SGOT 21 U/L (15-59); BILIRUBIN,TOTAL 0.6 mg/dL (0.2-1.3); BLOOD UREA NITROGEN 33 mg/dL (7-21); CARBON DIOXIDE 29 mmol/L (21-33); CHLORIDE 99 mmol/L (98-107); GFR AFRICAN-AMERICAN > 60; POTASSIUM 4.1 mmol/L (3.6-5.0); SODIUM 131 mmol/L (132-148); TOTAL PROTEIN 5.5 g/dL (5.8-8.3)
[2016-10-06 09:51] LABS: GLUCOSE,RANDOM 310 mg/dL (70-110)
--- NOTE | 2016-10-06 10:14 | CP.PCM.PN ---
Subjective - Date & Time of Evaluation Date of Evaluation: 10/06/16 Time of Evaluation: 08:00 - Subjective Subjective: Stable on 2R. No CP or SOB. Still swelling of legs with discomfort. V/S noted. RSR PE: Lungs: clear Cor.: S1S2, ANGIE Abd.: soft Ext.: no edema with weeping chronic cellulitic appearance Neuro.: alert I/O= 540/1000 Labs noted: na += 131, Cr.=1.3 BC x2 NG at 24 hrs. urine + GNR Objective - Vital Signs/Intake and Output Vital Signs (last 24 hours): Temp Pulse Resp BP Pulse Ox 98.6 F 81 20 161/91 H 95 10/06/16 06:00 10/06/16 06:00 10/06/16 06:00 10/06/16 09:02 10/06/16 06:00 Intake and Output: 10/06/16 10/06/16 06:59 18:59 Intake Total 540 Output Total 400 Balance 140 - Medications Medications: Current Medications Clonazepam (Klonopin) 0.25 mg PO AMHS [facility] PRN Reason: Protocol Last Admin: 10/06/16 09:02 Dose: 0.25 mg Furosemide (Lasix) 40 mg IVP DAILY [facility] Last Admin: 10/06/16 09:02 Dose: 40 mg Haloperidol (Haldol) 0.5 mg PO Q6 PRN; Protocol PRN Reason: Agitation Insulin Human Lispro (Humalog Low) 0 units SC ACHS [facility] PRN Reason: Protocol Last Admin: 10/06/16 08:53 Dose: Not Given Insulin Lispro Protam/Lispro Human (Humalog Mix 75/25) 24 units SC ACB [facility] Last Admin: 10/06/16 08:59 Dose: 24 units Insulin Lispro Protam/Lispro Human (Humalog Mix 75/25) 18 units SC ACD [facility] Last Admin: 10/05/16 17:33 Dose: 18 units Lisinopril (Zestril) 40 mg PO DAILY [facility] Last Admin: 10/06/16 09:02 Dose: 40 mg - Labs Labs: 10/06/16 08:53 10/06/16 08:53 PT 10.5 Seconds (9.9-11.8) 10/04/16 20:46 INR 0.97 (0.93-1.08) 10/04/16 20:46 APTT 26.1 Seconds (23.7-30.8) 10/04/16 20:46 Assessment and Plan - Assessment and Plan (Free Text) Plan: Assessment Edema/LE discomfort/Cellulitis UTI HBP Diabetes Valvular Heart Disease: Moderate , Mild AI and TR, Mild to moderate MR [place] Plan: Continue IV Lasix Elevate legs AB OOB to chair Diabetes management As per Dr. Radha Thao Monitor: labs, I/O, Na+, sats., etc May need protected environment.
--- NOTE | 2016-10-06 14:01 | CON ---
DATE: 10/06/2016 The patient is an 80-year-old [place] female who psychiatry is following for agitation and confusion on the medical floor. I reviewed recent notes and spoke with nursing staff on multiple occasions yes terday and today and met with patient at bedside. The patient again appears to be superficially coop erative and pleasant, but can be loud and a little defensive, but less so today. He is aware that it is a problem and that he ____. The patient reports that he prays that he gets better because he wou ld like to be discharged and does not have any suicidal thoughts or wishes and he reports that this current admission is depressing him. He is not hallucinating. He does appear to be a little di soriented regarding the year; however, he is not overtly disorganized. The patient's difficult to co ntrol and anger have room for improvement; however, when this provider educates him about how other p atients and staff might react to his behavior and his tone, he appears to be a little bit understandi ng and appears to calm down a little bit. The patient does indicate that he would try to be a little quieter and less demanding. It is unclear if he will follow through on this. At this time, he is n ot overtly delusional and sometimes it is difficult to understand him because of his thick [place] ac cent, however, in general, his responses are relevant to questioning, ____ be a little oddly related, although this might be a cultural phenomenon. His impulse control is technically in control during my meeting with him this morning, although he does require p.r.n. throughout the day and required a p.r.n. of Ativan yesterday due to agitation. Insight and judgment are considered to be poor, but imp roving. MEDICATIONS: Relevant psychiatric medications include Klonopin 0.25 mg p.o. a.m. and at bedtime whic h he received 1 dose last night and 1 dose this morning, Haldol 0.5 mg p.o. q. 6 p.r.n. and he has no t received any doses of this medication thus far; however, he did receive Haldol 0.25 mg p.o. q. 6 p. r.n. yesterday, just 1 dose at roughly 3:00 p.m. and this dose barely had any effect; hence, the reas on why Haldol dose was doubled to 0.5 mg and hence, the reason why the patient received Ativan 0.5 mg 1 time dose yesterday ____. VITAL SIGNS AND LABORATORY WORK: Reviewed by this provider. ASSESSMENT: Delirium, possible adjustment disorder with anxiety and depression, possible underlying dementia, although it is unclear due to confounding situation of medical issues possibly causing deli rium. RECOMMENDATIONS: At this time, we will continue Klonopin at a standing dose of 0.25 mg a.m. and at b edtime to help with behavior on the unit and we will also provide Haldol at the higher dose of 0.5 mg p.o. q. 6 hours p.r.n. for agitation. Psychiatry will continue to follow up with patient about jasmine toring his behavior and mental status and we will also spend time orienting patient about his current circumstances and behavior and behavioral control. Alesia Kirk MD cc: [id number] TT: 10/06/2016 12:30:31 Confirmation # [id number] Dictation # [id number] tn 10/06/2016 13:00:35
--- NOTE | 2016-10-06 18:46 | PN ---
DATE: 10/06/2016 ROOM: 272 This is an 80-year-old male with recent uncontrolled type 2 insulin-requiring diabetes, presenting he re with hyperglycemic accelerations and supervening congestive heart failure and is now being followe d closely for metabolic management. His glycemic levels are still fluctuating as noted today with gl ucose values ranging from 294-295 mg/dL. His bedtime glucose was 136-221 as noted. The latest chemi stries today showed a BUN of 33, sodium 131, potassium 4.1, chloride 99, CO2 of 29, glucose 310 and c reatinine 1.3. So, at this time, we will modify the current premixed insulin regimen and increase the Humalog 75/25 to 30 units before meals breakfast and 24 units before meals dinner to start today. We will continue the low-dose correction scale using Humalog insulin as given. We will obtain serial chemistries and supplement accordingly as needed. We will follow and advise accordingly. Marisabel Saenz MD cc: [id number] TT: 10/06/2016 18:45:35 Confirmation # [id number] Dictation # [id number] sn
[2016-10-07] MEDS: Insulin Lispro (humaLOG) MIX 75/25(10 ml) SC SCH ×2 (07:49→11:40)
--- NOTE | 2016-10-07 08:35 | CP.PCM.PN ---
Subjective - Date & Time of Evaluation Date of Evaluation: 10/07/16 Time of Evaluation: 08:00 - Subjective Subjective: Stable on 2R. No CP or SOB. Less swelling of legs. Chronic cellulitis changes and erythema. V/S noted. RSR PE: Lungs: clear Cor.: S1S2, ANGIE Abd.: soft Ext.: less edema Neuro.: alert Labs 10/06 noted: Na += 131, Cr.=1.3 BC x2 NG at 48 hrs. urine + GNR 50 - 100,000 cols Objective - Vital Signs/Intake and Output Vital Signs (last 24 hours): Temp Pulse Resp BP Pulse Ox 98.2 F 93 H 22 156/87 H 95 10/06/16 11:55 10/06/16 14:00 10/06/16 11:55 10/06/16 11:55 10/06/16 06:00 Intake and Output: 10/07/16 10/07/16 06:59 18:59 Intake Total 120 Balance 120 - Medications Medications: Current Medications Clonazepam (Klonopin) 0.25 mg PO AMHS [facility] PRN Reason: Protocol Last Admin: 10/06/16 23:07 Dose: 0.25 mg Furosemide (Lasix) 40 mg IVP DAILY [facility] Last Admin: 10/06/16 09:02 Dose: 40 mg Haloperidol (Haldol) 0.5 mg PO Q6 PRN; Protocol PRN Reason: Agitation Insulin Human Lispro (Humalog Low) 0 units SC ACHS [facility] PRN Reason: Protocol Last Admin: 10/06/16 23:07 Dose: Not Given Insulin Lispro Protam/Lispro Human (Humalog Mix 75/25) 24 units SC ACD [facility] Last Admin: 10/06/16 17:07 Dose: 24 unit Insulin Lispro Protam/Lispro Human (Humalog Mix 75/25) 30 units SC ACB [facility] Lisinopril (Zestril) 40 mg PO DAILY [facility] Last Admin: 10/07/16 06:29 Dose: 40 mg - Labs Labs: 10/06/16 08:53 10/06/16 08:53 PT 10.5 Seconds (9.9-11.8) 10/04/16 20:46 INR 0.97 (0.93-1.08) 10/04/16 20:46 APTT 26.1 Seconds (23.7-30.8) 10/04/16 20:46 Assessment and Plan - Assessment and Plan (Free Text) Plan: Assessment Edema/LE discomfort/Cellulitis R/O UTI HBP Diabetes Valvular Heart Disease: Moderate , Mild AI and TR, Mild to moderate MR [place] Plan: PO Lasix 40 BID. PO KCL 20 BID Elevate legs AB OOB ad joy Diabetes management As per Endo, Psych., Dr. Garcia
[2016-10-07] MEDS: Insulin Lispro (humaLOG) LOW Coverage SC SCH ×3 (08:41→16:39)
[2016-10-07] MEDS: Potassium Chloride 20 mEq ER Tab PO SCH ×2 (10:59→17:02)
--- NOTE | 2016-10-07 12:27 | PN ---
DATE: 10/07/2016 ROOM: 567. This is an 80-year-old male presenting with congestive heart failure and has improved clinically and hemodynamically as noted thereof, and is also being followed closely for metabolic management because of recent hyperglycemic accelerations as noted thereof. His latest chemistry showed a BUN of 33, so dium 131, potassium 4.1, chloride 99, CO2 29, glucose 310 and creatinine 1.3. His glucose values hav e ranged from 274 to 294 mg/dL. So at this time, we will modify his premixed insulin regimen and inc rease his Humalog 75/25 to 34 units a.c. breakfast and the dinner dose to Humalog 75/25 given as 28 units subQ a.c. dinner to start today. We will continue the low-dose correction scale using regular insulin as ordered and we will titrate incrementally as indicated to optimize metabolic control. We will obtain serial chemistries and supplement accordingly as needed. We will follow. Marisabel Saenz MD cc: [phone] TT: 10/07/2016 12:26:47 Confirmation # [id number] Dictation # [id number] snehal
--- NOTE | 2016-10-07 12:51 | PN ---
DATE: 10/07/2016 The patient is an 80-year-old who is awake and alert, confused, disoriented, [place] male, sitting in chair. PHYSICAL EXAMINATION: VITAL SIGNS: He is afebrile, pulse 96, respirations 20, blood pressure 158/70. LUNGS: Bilateral fair airflow, no rhonchi or crackle. HEART: S1, S2 audible. ABDOMEN: Soft, nontender, no rebound, no guarding. NEUROLOGIC: He is awake and alert, able to communicate. EXTREMITIES: Bilateral legs +2 edema with erythema and scaly dry skin. LABORATORY EXAMINATION: There is no new lab available today. Blood sugar is 274. His urine culture positive for Enterobacter cloacae. Blood cultures are negative. Bilateral leg Doppler negative for DVT. ASSESSMENT: 1. Bilateral leg cellulitis. 2. Uncontrolled diabetes. 3. Enterococcus urinary tract infection. 4. Insulin-dependent diabetes. 5. Moderate aortic stenosis and tricuspid regurgitation, mild to moderate mitral regurgitation. 6. Dementia. 7. Deconditioning and difficulty walking. PLAN: Currently, patient is on diuretics. Blood sugar is being monitored by Dr. Marisabel Saenz. We will request for physical therapy and also request for TCU. If accepted, can be transferred to TCU. Ashlie Emanuel MD cc: [phone] TT: 10/07/2016 12:50:46 Confirmation # [id number] Dictation # [id number] en
--- NOTE | 2016-10-07 14:57 | CON ---
DATE: 10/07/2016 HISTORY OF PRESENT ILLNESS: The patient is an 80-year-old Monegasque male who is being followed by ashley mata on the medical floor for agitation and confusion. I reviewed recent notes and met with shahnaz torres at bedside, my third Interaction and patient is showing some mild improvement in his behavior. How ever, he continues to be loud and demanding at times, but can be redirected. He can be pleasant and kind, however he is labile. The patient consistently reports that he is unhappy with hospitalization and would like to go home. He is not suicidal, he is not homicidal. He is not hallucinating and no overt delusions were elicited from patient. He does report that he is depressed, but he is careful to say that he is depressed about being on the medical floor. I asked him about the current date, ye ar, location; he is able to answer this accurately and he does show some improvement focus and impuls e control but he appears to be just preoccupied with discharge at that time. I reviewed the patient's recent nursing notes that indicated that possible transfer to psychiatric un it has been entertained by Dr. Garcia and has been discussed with the patient's daughter. This pro vider discussed this option with patient and patient was quite adamant that he does not want to go to the psychiatric unit. I provided some reassurance about the possible benefits to this transfer and patient is adamant about going home once he is medically cleared. The patient's impulse control cont inues to be unpredictable at this time. VITAL AND LABORATORIES: Reviewed by this provider. RELEVANT PSYCHIATRIC MEDICATIONS: Include Klonopin 0.25 mg a.m. and at bedtime of which patient rece ived 2 doses yesterday and 1 dose in the morning, Haldol 0.5 mg q. 6 p.r.n. of which patient received no doses. ASSESSMENT: 1. Delirium. 2. Adjustment disorder with anxiety ____, possible underlying depression. Have to rule out the cont ribution of a personality disorder with possible cultural influence. RECOMMENDATIONS: At this time, we will continue Klonopin as standing dose 0.25 mg a.m. and at bedtim e. Also recommended that the nursing staff use Haldol p.r.n. as needed for patient's agitation, alth ough in my experience he has been relatively easy to redirect; however, the frequency which he needs redirection has been difficult for the staff on the unit. At this time, patient is refusing voluntar y hospitalization and it is unclear whether his behavioral issues are secondary to delirium or jace ia or even a personality disorder. If necessary if the daughter feels that the patient's behavior is dangerous upon discharge, ____ can be called. However, there does not seem be any indication of thi s with patient at present moment or in 2 prior records. The patient is cranky, can be loud, but he d oes not appear to be physically aggressive or psychotic or paranoid and does not appear to be ____ at this time. There does not appear to be any acute indication in this regard. It is also unclear whe ther patient is difficult nature would improve once he is discharged to home, which is what his prima ry focus is at this time. Psychiatry will follow up with patient, monitor his behavior while he is o n the medical floor; however, it does appear that he might be ready for medical clearance and hilda godoy is willing to pick him up and bring him back to their home once he is medically cleared if indicati on is that patient is not want to sign in psychiatrically, which he is not willing to do at this time . Alesia Kirk MD cc: [id number] TT: 10/07/2016 13:23:28 Confirmation # [id number] Dictation # [id number] herb
[2016-10-07] MEDS ORDERED: Insulin Lispro (humaLOG) MIX 75/25(10 ml) SC SCH (16:30)
[2016-10-07 16:42] VITALS: RESP 20
[2016-10-08] MEDS ORDERED: Insulin Lispro (humaLOG) MIX 75/25(10 ml) SC SCH ×3 (07:30→10:30)
[2016-10-08] MEDS: Insulin Lispro (humaLOG) LOW Coverage SC SCH ×3 (08:15→17:28)
[2016-10-08] MEDS: Potassium Chloride 20 mEq ER Tab PO SCH ×2 (09:05→17:34)
--- NOTE | 2016-10-08 10:21 | PN ---
DATE: 10/08/2016 HISTORY OF PRESENT ILLNESS: The patient is a 80-year-old [place] Vietnamese male who is being followed by psychiatry on the medical floor for altered mental status. I reviewed recent notes and met with the patient at bedside again today. This is my fourth interaction with the patient and patient does appear to be showing improvement in his health and strength. He recognizes me from our prior interactions and is generally friendly and he continues to be loud at times and abrupt, but quite redirectable and can be pleasant and make jokes at the same time. Often inflects his opinions with the phrase "mama hardik" and while he can be forgetful and demanding and loud, he is not violent or threatening. The patient is still preoccupied with going home and he is unhappy with the hospitalization, but agrees he is getting medically better. He is not suicidal. He is not homicidal. He is not hallucinating. Overt delusions were not elicited from the patient. The patient again is able to give me the correct month and year, although again says "mama hardik" when I ask him about this information as though he is exasperated by this repeated request. Again, I reviewed the benefits of being transferred to the psychiatric floor, but again, the patient is quite adamant stating "no, no, no, no, no, Daniel is okay up here" and points to his head. Insight and judgment are improving a little bit with impulse control. VITAL SIGNS AND LABORATORIES: Reviewed by this provider. RELEVANT PSYCHIATRIC MEDICATIONS: Include Klonopin 0.25 mg a.m. and at bedtime as well as Haldol 0.5 mg p.o. q. 6 hours p.r.n. ASSESSMENT: 1. Delirium. 2. 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 3. Have to rule out contribution of personality disorder, which is called possible cultural influence. RECOMMENDATIONS: At this time, we will continue with current treatment and plan. I have modified the patient's orders so that nurses have been alerted that he may receive Haldol IM or IV if he should be refusing p.o. Haldol during an episode of agitation. We will continue to follow with the patient every other day and monitor his progress. Please call if there are any acute changes in his mental status at this time. He is psychiatrically cleared if he should be medically cleared. JOSE VASQUEZ MD cc: [phone] TT: 10/08/2016 10:20:58 Confirmation # [id number] Dictation # [id number] rn MTDD
--- NOTE | 2016-10-08 13:14 | PN ---
DATE: 10/08/2016 ROOM: 567 SUBJECTIVE: This is an 80-year-old male with recent congestive heart failure and supervening uncontr olled type 2 insulin-requiring diabetes, now being followed closely for metabolic management. His gl ycemic levels are fluctuating as noted and have ranged from 186 to 305 mg/dL. His latest chemistries showed a BUN of 33, sodium 131, potassium 4.1, chloride 99, CO2 29, glucose 310, and creatinine 1.3. His glucose levels have ranged from 274 to 294 mg/dL. So at this time, we will modify his premixed insulin regimen and increase the Humalog 75/25 to 44 units subQ a.c. breakfast daily as ordered. We will titrate incrementally as indicated to optimize metabolic control. We will also continue the lo w-dose correction scale using Humalog insulin as given. We will also titrate the Humalog 75/25 to 36 units a.c. dinner to start today as ordered. We will titrate incrementally as indicated to optimize metabolic control. We will obtain serial chemistries and supplement accordingly as needed. We will follow. Marisabel Saenz MD cc: [phone] TT: 10/08/2016 13:13:43 Confirmation # [id number] Dictation # [id number] jn
[2016-10-08] MEDS: Insulin Lispro (humaLOG) MIX 75/25(10 ml) SC SCH (17:28)
--- NOTE | 2016-10-08 18:31 | PN ---
DATE: 10/08/2016 SUBJECTIVE: The patient is an 80-year-old, seen and examined, sitting in chair. Complained of bilat eral leg pain, swelling. Eating well. No nausea or vomiting. No fevers, no chills. PHYSICAL EXAMINATION: VITAL SIGNS: He is afebrile, pulse 91, respirations 20, blood pressure 138/69. LUNGS: Bilateral fair airflow, no rhonchi or crackle. HEART: S1, S2 audible. ABDOMEN: Soft, nontender, no rebound, no guarding. NEUROLOGIC: He is awake and alert, communicative. Bilateral leg cellulitis with +2 edema. LABORATORY EXAMINATION: There is no new lab available today. Chemistry: Sodium 131, potassium 4.1, chloride 99, CO2 of 29, BUN 33, creatinine 1.3, blood sugar of 274. His urine is positive for Enter obacter cloacae. Blood cultures are negative. ASSESSMENT: 1. Bilateral leg cellulitis. 2. Uncontrolled diabetes. 3. Enterococcus urinary tract infection. 4. Noninsulin dependent diabetes. 5. Aortic stenosis. 6. Dementia. 7. Deconditioning and difficulty walking. PLAN: The patient has been started on Rocephin for bilateral leg cellulitis. He needs pulmonary physical therapist apy and gait training. Request for TCU evaluation. If he is accepted, we can transfer him to TCU. Ashlie Emanuel MD cc: [id number] TT: 10/08/2016 18:30:24 Confirmation # [id number] Dictation # [id number] snehal
[2016-10-08] MEDS ORDERED: cefTRIAXone 1 gm 100 ML IVPB STA (23:18)
[2016-10-09] MEDS ORDERED: Insulin Lispro (humaLOG) MIX 75/25(10 ml) SC SCH (07:30)
[2016-10-09] MEDS: Insulin Lispro (humaLOG) LOW Coverage SC SCH ×4 (08:55→21:15)
[2016-10-09] MEDS: Potassium Chloride 20 mEq ER Tab PO SCH ×2 (09:10→17:25)
[2016-10-09] MEDS: cefTRIAXone 1 gm 100 ML IVPB SCH (09:11)
--- NOTE | 2016-10-09 11:42 | PN ---
DATE: 10/09/2016 The patient is an 80-year-old, seen and examined, sitting in chair, seems to be comfortable, eating a nd tolerating. No nausea, vomiting, no diarrhea. PHYSICAL EXAMINATION: VITAL SIGNS: He is afebrile, pulse 62, respirations 20, blood pressure /96. LUNGS: Bilateral fair airflow, no rhonchi or crackle. HEART: S1, S2 audible. No murmur. ABDOMEN: Soft, nontender, no rebound, no guarding. NEUROLOGIC: He is awake and alert, communicative. According to the nurse, he is able to walk, but i s unstable, high risk to fall. LABORATORY EXAMINATION: Blood sugar is 142. ASSESSMENT: 1. Bilateral leg cellulitis. 2. Insulin-dependent diabetes. 3. Bilateral leg cellulitis and erythema, improving. 4. Enterococcus urinary tract infection. 5. Aortic stenosis. 6. Dementia. PLAN: We will continue patient on current antibiotic. TCU evaluation has been requested. We will m onitor blood sugar. The patient needs physical therapy. Message left with patient's family and Rissa cordova. Awaiting call to make final decision if they want to take him home with home therap y or TCU. Ashlie Emanuel MD cc: [id number] TT: 10/09/2016 11:41:27 Confirmation # [id number] Dictation # [id number] en
--- NOTE | 2016-10-09 13:34 | PN ---
DATE: 10/09/2016 ROOM: 567 This is an 80-year-old male with recent uncontrolled type 2 insulin-requiring diabetes, now being fol lowed closely for metabolic management. His glycemic levels are fluctuating, but improved, and the latest glucose levels have ranged from 142 -274 mg/dL. The latest chemistry showed a BUN of 33, sodium 131, potassium 4.1, chloride 99, CO2 29, glucose 310 and creatinine 1.3. So at this time, to allow for dose equilibration, we will continue the same premixed insulin regimen with Humalog 75/25 given as 44 units before breakfast and 36 units before dinner as ordered. We will continue the low-dose correction scale using regular insulin as ordered. We will titrate incrementa lly as indicated to optimize metabolic control. We will obtain serial chemistries and supplement acc ordingly as needed. We will follow. Marisabel Saenz MD cc: [id number] TT: 10/09/2016 13:33:58 Confirmation # [id number] Dictation # [id number] en
[2016-10-09] MEDS: Insulin Lispro (humaLOG) MIX 75/25(10 ml) SC SCH (17:29)
--- NOTE | 2016-10-09 17:47 | PN ---
DATE: 10/09/2016 ROOM: 567 HISTORY OF PRESENT ILLNESS: This is an 80-year-old male with congestive heart failure now being follo wed closely for metabolic management. His glycemic levels are fluctuating, but much improved at this time and the latest glucose levels have ranged from 142-274 mg/dL. The latest chemistry showed a BU N of 33, sodium 131, potassium 4.1, chloride 99, CO2 29, glucose 310 and creatinine 1.3. So, at this time, we will modify his basal and bolus insulin regimen and increase the Humalog 75/25 to 48 units a.c. breakfast to start tomorrow morning and then 40 units a.c. dinner to start today. We will titra te incrementally as indicated to optimize metabolic control. We will also continue the low-dose wander ection scale using regular insulin as ordered. We will titrate incrementally as indicated to optimiz e metabolic control. We will follow and advise accordingly. Marisabel Saenz MD cc: [id number] TT: 10/09/2016 17:47:08 Confirmation # [id number] Dictation # [id number] mino
[2016-10-10 06:25] LABS: ADD MANUAL DIFF? NO
[2016-10-10 06:36] LABS: BASO # 0.03 K/mm3 (0.0-2.0); BASO % 0.6 % (0.0-3.0); EOS # 0.2 (0.0-0.7); EOS % 3.6 % (1.5-5.0); GRAN # 3.15 (1.4-6.5); GRAN % 62.6 % (50.0-68.0); LYMPH # 1.3 (1.2-3.4); LYMPH % 25.4 % (22.0-35.0); MEAN CELL VOLUME 88.2 fL (80.0-105.0); MEAN CORPUSCULAR HEMOGLOBIN 29.4 pg (25.0-35.0); MEAN CORPUSCULAR HGB CONC 33.3 g/dl (31.0-37.0); MEAN PLATELET VOLUME 11.3 fl (7.0-11.0); MONO # 0.4 (0.1-0.6); MONO % 7.8 % (1.0-6.0); PLATELET COUNT 229 10^3/uL (120.0-450.0); RED CELL DISTRIBUTION WIDTH 13.4 % (11.5-14.5)
[2016-10-10 06:52] LABS: ALB/GLOB RATIO 0.7 (1.1-1.8); ALKALINE PHOSPHATASE 93 U/L (38-133); ALT/SGPT 29 U/L (7-56); AST/SGOT 22 U/L (15-59); BILIRUBIN,TOTAL 0.6 mg/dL (0.2-1.3); BLOOD UREA NITROGEN 37 mg/dL (7-21); CALCIUM 7.9 mg/dL (8.4-10.5); CARBON DIOXIDE 31 mmol/L (21-33); CHLORIDE 101 mmol/L (98-107); GFR AFRICAN-AMERICAN > 60; GLUCOSE,RANDOM 124 mg/dL (70-110); SODIUM 137 mmol/L (132-148); TOTAL PROTEIN 5.4 g/dL (5.8-8.3)
[2016-10-10] MEDS ORDERED: Insulin Lispro (humaLOG) MIX 75/25(10 ml) SC SCH ×2 (07:30→16:30)
[2016-10-10 07:47] VITALS: PULSE 86
[2016-10-10] MEDS: Insulin Lispro (humaLOG) LOW Coverage SC SCH ×3 (07:51→18:04)
[2016-10-10] MEDS: Potassium Chloride 20 mEq ER Tab PO SCH ×2 (10:34→18:07)
[2016-10-10] MEDS: cefTRIAXone 1 gm 100 ML IVPB SCH (10:36)
--- NOTE | 2016-10-10 14:57 | CON ---
DATE: 10/10/2016 The patient is an 80-year-old Bulgarian male who was being followed by psychiatry on the medical floor for confusion and difficult behavior. I reviewed recent notes and met with patient at bedside again. This is my 4th interaction and the patient is showing some mild improvement in his behavior. He a lso appears to be medically improving in his appearance and alertness and responsiveness, notably bet ter than the first time I met with him. The patient continues to be loud and demanding at times, but can be redirected. It is unclear whether this is due to cultural influence. He can be pleasant and can joke and be . However, he is labile and prone to repetition and forgetfulness. The patien t continues to report that he wants to be discharged, and this is the prevailing theme and his reques t during all my visits. He continues to say that he is depressed about being hospitalized, but he in dicates that there is nothing wrong with his head and denies having any suicidal thoughts, homicidal thoughts, hallucinations or does not appear to be overtly paranoid or hypervigilant. Focus has also seemed to improve and impulse control is still showing some improvement, but in general, he just seem ed to be preoccupied with discharge. Vital signs and labs were reviewed by this provider. RELEVANT PSYCHIATRIC MEDICATIONS: Include Klonopin 0.25 mg p.o. a.m. and at bedtime as well as Haldo l 0.5 mg p.o. or IM q. 6 p.r.n., of which he only received 1 dose on 10/08/2016. IMPRESSION: 1. Improving delirium. 2. Confusion, possibly secondary to underlying dementia diagnosis, though it is difficult to tease o ut due to patient's current medical issues. 3. Adjustment disorder with anxiety and depression. 4. Need to rule out contribution of personality disorder with possible cultural influence. RECOMMENDATIONS: We will continue with current medications as noted, Haldol and Klonopin. There is no indication for acute changes in patient's medication regimen at this time. The patient appears to be generally manageable on the unit. Psychiatry will sign off at this time. Please reconsult p.r.n . if there are any acute changes in his mental status or behavior. Alesia Kirk MD cc: [id number] TT: 10/10/2016 14:57:20 Confirmation # [id number] Dictation # [id number] dn
[2016-10-10 15:51] VITALS: BP 164/78; TEMP 98; O2SAT 92
--- NOTE | 2016-10-10 16:08 | PN ---
DATE: 10/10/2016 ROOM: 567 This is an 80-year-old male with recent uncontrolled type 2 insulin-requiring diabetes, now being fol lowed closely for metabolic management. His glycemic levels are fluctuating, but much improved overn ight as noted. His latest glucose levels have ranged from 128-213 sodium 137, potassium 4.0, chloride 101, CO2 , glucose . So at this time, we will continue the same basal and premixed insulin regimen to allow for dose equil ibration and keep him on the Humalog 75/25 given as 48 units before breakfast and 40 units before din ner as ordered. We will continue the low-dose correction scale using Humalog insulin as ordered. We will obtain serial chemistries and supplement accordingly. We will follow. Marisabel Saenz MD cc: [phone] TT: 10/10/2016 16:08:03 Confirmation # [id number] Dictation # [id number] en
--- NOTE | 2016-10-10 17:57 | DS ---
The patient is an 80-year-old, seen and examined, sitting in chair, wants to go home and not in any a cute distress. PHYSICAL EXAMINATION: VITAL SIGNS: He is afebrile, pulse 86, respirations 20, blood pressure /75. LUNGS: Bilateral good airflow, no rhonchi or crackle. HEART: S1, S2 audible. No murmur. ABDOMEN: Soft, nontender, no rebound, no guarding. NEUROLOGIC: He is awake and alert, communicative, answers simple questions. EXTREMITIES: Bilateral leg: His edema has significantly improved. The erythema has significantly i mproved. LABORATORY EXAM: WBC 5.0, hemoglobin 12, hematocrit 36, platelets of 229. Chemistry: Sodium 137, p otassium 4.0, chloride 101, CO2 of 31, BUN 37, creatinine 1.3, blood sugar 124. ASSESSMENT: 1. Bilateral leg cellulitis that has improved. 2. Non-insulin dependent diabetes. 3. Hypertension. 4. Mild dementia. 5. Deconditioning and difficulty walking. As per the PT note, he needs physical therapy, probably a candidate of TCU. I reach out to the patie nt's daughter, left a message, but never called back. I will discuss with social science instructor for dispos ition. PLAN: At this point, I can switch his antibiotic to p.o. and once it is decided will make dispositio n plan after talking to the family. Ashlie Emanuel MD cc: [phone] TT: 10/10/2016 17:56:39 cn
--- NOTE | 2016-10-26 23:31 | RAD ---
PROCEDURE: CHEST RADIOGRAPH, 1 VIEW HISTORY: Chest pain COMPARISON: 09/07/2016 FINDINGS: LUNGS: Clear. PLEURA: No pneumothorax or pleural fluid seen. CARDIOVASCULAR: There is moderate vascular congestion OSSEOUS STRUCTURES: No significant abnormalities. VISUALIZED UPPER ABDOMEN: Normal. OTHER FINDINGS: None. IMPRESSION: Moderate vascular congestion
== END 2016-10-10 19:03 | DRG 603 ==
LOC: ED 19:17 → UNDOADMOB 22:31 → ERH 22:31 → 2RSO 10-05 01:20 → ERH 10-05 01:20 → 2RSO 10-05 07:52 → 5RNO 10-05 07:52 → ERH 10-05 07:52 → INTOOBSV 10-05 09:01 → OBSVTOIN 10-05 09:01 → 2RSO 10-06 19:23 → 5RNO 10-06 19:23
PROVIDERS: ADMIT Internal Medicine Nephrology; ATTEND Internal Medicine Nephrology
DX: L03.115 Cellulitis of right lower limb (principal); L03.116 Cellulitis of left lower limb; I11.0 Hypertensive heart disease with heart failure; I50.20 Unspecified systolic (congestive) heart failure; F05 Delirium due to known physiological condition; E87.1 Hypo-osmolality and hyponatremia; N39.0 Urinary tract infection, site not specified; B95.2 Enterococcus as the cause of diseases classified elsewhere; E11.65 Type 2 diabetes mellitus with hyperglycemia; G30.9 Alzheimer's disease, unspecified; F02.80 Dementia in other diseases classified elsewhere, unspecified severity, without behavioral disturbance, psychotic disturbance, mood disturbance, and anxiety; I08.3 Combined rheumatic disorders of mitral, aortic and tricuspid valves; E78.5 Hyperlipidemia, unspecified; F43.23 Adjustment disorder with mixed anxiety and depressed mood; R26.2 Difficulty in walking, not elsewhere classified; Z79.4 Long term (current) use of insulin; Z91.14 Patient's other noncompliance with medication regimen; Z79.82 Long term (current) use of aspirin

== ENCOUNTER 2016-10-10 19:03 | Inpatient (IN) | payer MEDICARE ==
[2016-10-10 19:46] VITALS: BMI 34.1
[2016-10-10] MEDS: Insulin Lispro (humaLOG) LOW Coverage SC SCH (21:03)
[2016-10-11] MEDS: cefTRIAXone 1 gm 100 ML IVPB SCH (05:19)
[2016-10-11] MEDS: Insulin Lispro (humaLOG) LOW Coverage SC SCH ×4 (07:46→21:15)
[2016-10-11] MEDS ORDERED: Insulin Lispro (humaLOG) MIX 75/25(10 ml) SC STA (08:02)
[2016-10-11] MEDS: Insulin Lispro (humaLOG) MIX 75/25(10 ml) SC SCH ×2 (08:24→17:51)
[2016-10-11] MEDS ORDERED: Potassium Chloride 10 mEq ER Tab PO SCH (10:00)
[2016-10-11] MEDS: Potassium Chloride 20 mEq ER Tab PO SCH ×2 (10:04→17:04)
[2016-10-11] MEDS: clonazePAM 0.125 mg Disinteg Tab PO SCH ×2 (11:22→21:16)
[2016-10-11] MEDS ORDERED: Bacitracin Ointment 30 GM TUBE TOP ONE (16:00)
[2016-10-11] MEDS ORDERED: Bacitracin 500 Units/gm Oint Foilpak UD TOP ONE (19:30)
--- NOTE | 2016-10-11 19:30 | HP ---
HISTORY OF PRESENT ILLNESS: The patient was admitted on 10/04 with complaint of bilateral leg swellin g, redness and mild shortness of breath. Was also found to be very high blood sugar. Did not have a ny chest pain, or fever. No chills, no nausea or vomiting. The patient was diuresed, was give n IV antibiotics, significantly improved, but on physical therapy, patient was found to be very unsta ble and was unsafe discharge, so he was referred to TCU for rehabilitation. The patient was initiall y in [facility] for subacute rehab in [place]. PAST MEDICAL HISTORY: Significant for: 1. CHF secondary to systolic dysfunction. 2. Non-insulin dependent diabetes. 3. Hypertension. 4. Dementia. 5. Status post hyponatremia. SOCIAL HISTORY: Denies smoking, drinking or alcohol use. He lives with daughter. ALLERGIES: Not allergic to any medications. MEDICATIONS AT HOME: He is on potassium 20 mEq twice a day, lisinopril 40 mg daily. He is on NovoLo g 10 units twice a day, Lasix 40 mg twice a day, aspirin 325 daily. REVIEW OF SYSTEMS: Significant for being forgetful, agitated at times, difficulty walking and bilate ral leg swelling. PHYSICAL EXAMINATION: GENERAL: He is awake, alert, communicative. VITAL SIGNS: He is afebrile, pulse 70, respirations 20, blood pressure 138/74. LUNGS: Bilateral good airflow, no rhonchi or crackle. HEART: S1, S2 audible. No murmur. ABDOMEN: Soft, nontender, no rebound, no guarding. NEUROLOGIC: The patient is awake and alert, communicative. Ambulates with help. ASSESSMENT: 1. Status post bilateral leg cellulitis and edema that has significantly improved. 2. Acute on chronic systolic dysfunction, stable now. 3. Hypertension. 4. Insulin-dependent diabetes. 5. Chronic anemia. PLAN: The patient is transferred to TCU where they will encourage him for physical therapy. We will monitor his blood sugar and will get his chemistry intermittently. Ashlie Emanuel MD cc: [phone] TT: 10/11/2016 19:29:33 rn
[2016-10-12] MEDS: cefTRIAXone 1 gm 100 ML IVPB SCH (05:12)
[2016-10-12] MEDS: Insulin Lispro (humaLOG) LOW Coverage SC SCH ×4 (06:33→21:55)
[2016-10-12] MEDS: Insulin Lispro (humaLOG) MIX 75/25(10 ml) SC SCH ×2 (06:34→17:41)
[2016-10-12] MEDS: Potassium Chloride 20 mEq ER Tab PO SCH ×2 (07:49→17:42)
[2016-10-12] MEDS: clonazePAM 0.125 mg Disinteg Tab PO SCH ×2 (09:53→21:17)
[2016-10-12] MEDS: Cefpodoxime (Vantin) 200 mg Tab PO SCH (21:17)
--- NOTE | 2016-10-12 23:08 | PN ---
DATE: 10/12/2016 The patient is 80 years old, seen and examined, lying in bed, seems to be comfortable, participating in therapy. Bilateral leg swelling has significantly improved. PHYSICAL EXAMINATION: VITAL SIGNS: He is afebrile, pulse 66, respirations 20, blood pressure 148/73. LUNGS: Bilateral fair airflow, no rhonchi or crackle. HEART: S1, S2 audible. ABDOMEN: Soft, nontender, no rebound, no guarding. NEUROLOGIC: He is awake and alert. He is communicative. EXTREMITIES: Bilateral leg edema and erythema has significantly improved. Bilateral forearm, he has a small skin tear. LABORATORY DATA: Blood sugar is 190. ASSESSMENT AND PLAN: 1. Bilateral leg cellulitis, improving. 2. Mild dementia. 3. Hypertension. 4. Noninsulin dependent diabetes. 5. Left ventricular systolic dysfunction, stable now. 6. Bilateral forearm superficial skin tear. 7. Chronic anemia. PLAN: The patient has poor IV access. Will start him on p.o. Vantin and will monitor his electrolyt es and blood sugar closely. Ashlie Emanuel MD cc: [phone] TT: 10/12/2016 23:07:27 Confirmation # [id number] Dictation # [id number] dn
[2016-10-13 06:14] VITALS: RESP 18
[2016-10-13] MEDS: Insulin Lispro (humaLOG) LOW Coverage SC SCH ×4 (08:44→21:32)
[2016-10-13] MEDS: Insulin Lispro (humaLOG) MIX 75/25(10 ml) SC SCH ×2 (08:45→18:04)
[2016-10-13] MEDS: Potassium Chloride 20 mEq ER Tab PO SCH ×2 (08:48→17:57)
--- NOTE | 2016-10-13 09:40 | PN ---
DATE: 10/13/2016 DATE: 10/13/2016 SUBJECTIVE: The patient has no complaints of any chest pain, no shortness of breath. He is upset th at he is not able to go home. PHYSICAL EXAMINATION: VITAL SIGNS: Temperature is 98.2. Pulse is 66. Blood pressure is 166/76. GENERAL: The patient is comfortable, in no acute distress. HEENT: Anicteric sclerae. Moist mucosa. NECK: No JVD or adenopathy. CARDIAC: S1/S2. No murmurs. No rubs. Regular. RESPIRATORY: Clear to auscultation bilaterally. No wheezes, rales, or rhonchi. Good air entry. ABDOMEN: Bowel sounds are positive, soft, nontender, and nondistended. EXTREMITIES: No edema. Has 1+ pulses. ASSESSMENT: 1. Delirium. 2. Diabetes type 2. 3. Dementia, Alzheimer's type. 4. Hypertension. 5. Anemia, chronic. PLAN: The patient is currently on lisinopril for hypertension. He is continuing on Vantin. The pat michael is on Klonopin. He is getting Lasix daily. He is on his insulin. The patient has controlled s ugars at this point. It is going to be a challenge to get this patient home and continue his home in [facility]. The patient also has underlying dementia. Bruno Garcia MD cc: [id number] TT: 10/13/2016 09:39:54 Confirmation # [id number] Dictation # [id number] herb
[2016-10-13] MEDS: clonazePAM 0.125 mg Disinteg Tab PO SCH (10:28)
[2016-10-13] MEDS: Cefpodoxime (Vantin) 200 mg Tab PO SCH (11:24)
--- NOTE | 2016-10-13 12:42 | CON ---
DATE: 10/13/2016 The patient is a 60-year-old Uz[place] Haitian male who is being following by psychiatry for a gitation and confusion. I met with patient a number of times. The patient generally has been repeti tive, confused as well as loud, consistent with a diagnosis of delirium as well as dementia. The pat michael also has a history of being generally difficult and demanding consistent with his personality as per phone call with his daughter, Rissa, today while I was rounding on patient. Psychiatry cont inues to follow patient on the floor due to his difficult behavior; however, much of his behavior is secondary to dementia and delirium as well as his innate personality. The patient clearly does not w ant to be hospitalized in longer. He does not have much of a history of medical problems. He said t his experience for him is difficult. The patient can be redirected and calmed down, but the frequenc y of this redirection has been at times overwhelming to the staff. He can be loud and demanding and repetitive as mentioned, and stubborn on the unit. Due to forgetfulness, as mentioned he repetitive. At the same time, he can also be pleasant and kind but overall labile. He consistently reports he is unhappy with the hospitalization and would like to go home. He is not suicidal. He is not homici nicole. He is not hallucinating. No overt delusions were elicited from the patient. He again reports that he is depressed but he is careful to say that he is only depressed about his continued hospitali zation. I asked him about orientation and he is able to inform me about the current date, year, loca tion accurately. While he does show some improvement in focus during1 on , he just appears to be qu ite preoccupied with discharge. The option of being transferred to psychiatric floor was discussed with patient and nursing, and susan ent has repeatedly and consistently refused this option as he is quite adamant about not extended his hospitalization any longer than it needs to be. VITAL SIGNS AND LABS: Reviewed by this provider. RELEVANT PSYCHIATRIC MEDICATIONS: Include Klonopin at 0.25 mg p.o. a.m. and at bedtime. IMPRESSION: Delirium in the background of dementia as well as adjustment disorder with anxiety and d epression. Need to rule out contribution of personality disorder with possible cultural influence. RECOMMENDATIONS: 1. Will continue with Klonopin at 0.25 mg a.m. and at bedtime; however, this provider noted that upo n transfer to his current location recommended Haldol p.r.n.s were not transcribed. At this time, we will again start Haldol 0.5 mg q. 6 p.r.n. for agitation. 2. I discussed my recommendations with Rissa and I continue to recommend that repeated orientati on and reassurance be given to patient throughout the day due to his forgetfulness. 3. Psychiatry will continue to follow up with patient to monitor his mental status and behavior, and tolerance to medication. Alesia Kirk MD cc: [phone] TT: 10/13/2016 12:42:20 Confirmation # [id number] Dictation # [id number] mn
[2016-10-14] MEDS: Cefpodoxime (Vantin) 200 mg Tab PO SCH ×2 (00:58→10:31)
[2016-10-14] MEDS: clonazePAM 0.125 mg Disinteg Tab PO SCH ×2 (00:58→10:32)
[2016-10-14] MEDS: Insulin Lispro (humaLOG) LOW Coverage SC SCH ×2 (06:53→12:19)
[2016-10-14] MEDS: Insulin Lispro (humaLOG) MIX 75/25(10 ml) SC SCH (06:54)
[2016-10-14] MEDS: Potassium Chloride 20 mEq ER Tab PO SCH (08:34)
[2016-10-14 10:55] VITALS: BP 158/63; PULSE 85; TEMP 98.7; O2SAT 99
--- NOTE | 2016-10-17 09:54 | CP.PCM.PCO ---
Physician Communication Note - Physician Communication Note Physician Communication Note: note for 10/14/16, pt was d/c before this law writer rossana
--- NOTE | 2016-11-02 10:50 | DS ---
This is an 80-year-old who had come in to the hospital. He had diabetes type 2. He has dementia and was delirious. He was stabilized, and he was discharged. Please see the note dictated on 10/13/2016 for further details. Bruno Garcia MD cc: [id number] TT: 11/02/2016 10:49:28 jn
== END 2016-10-14 15:52 | disposition home health service (06) | DRG 556 ==
LOC: TRCU 19:03
PROVIDERS: ADMIT Internal Medicine Nephrology; ATTEND Internal Medicine Nephrology
PROC: F07Z9ZZ Gait Training/Functional Ambulation Treatment (ICD-10-PCS; principal; 2016-10-11)
PROC: F08Z4ZZ Home Management Treatment (ICD-10-PCS; 2016-10-11)
DX: R26.2 Difficulty in walking, not elsewhere classified (principal); I11.0 Hypertensive heart disease with heart failure; I50.22 Chronic systolic (congestive) heart failure; E11.65 Type 2 diabetes mellitus with hyperglycemia; L03.115 Cellulitis of right lower limb; L03.116 Cellulitis of left lower limb; G30.9 Alzheimer's disease, unspecified; F02.80 Dementia in other diseases classified elsewhere, unspecified severity, without behavioral disturbance, psychotic disturbance, mood disturbance, and anxiety; F43.23 Adjustment disorder with mixed anxiety and depressed mood; D64.9 Anemia, unspecified; Z79.4 Long term (current) use of insulin; Z79.82 Long term (current) use of aspirin

== ENCOUNTER 2016-12-10 20:19 | Inpatient (IN) | payer MEDICARE ==
[2016-12-10] MEDS ORDERED: Piperacillin/Tazobact 3.375 gm 100 ML IV STA (20:47)
[2016-12-10] MEDS ORDERED: [UNRECOGNIZED DRUG - OTHER] IV STA (20:48)
[2016-12-10] MEDS ORDERED: VANCOMYCIN IV STA (20:48)
--- NOTE | 2016-12-10 21:03 | ED PDOC ---
Arrival/HPI - General Chief Complaint: Lower Extremity Problem/Injury Time Seen by Provider: 12/10/16 20:29 Historian: Patient - History of Present Illness Narrative History of Present Illness (Text): 12/10/16 20:40 Daniel Gaona is an 81 year old male, whose past medical history includes CHF, diabetes, hypertension, Alzheimer's dementia, and hyponatremia, who presents to the Emergency department complaining of worsening lower leg infection, specifically to the right leg. Patient denies any recent injury/trauma to the area. Patient states antibiotic cream was applied to the area without relief. Patient denies any shortness of breath, chest pain, fever, chills, or any other complaints. Symptom Onset: Gradual Symptom Course: Worsening Activities at Onset: Rest, Light Context: Home Past Medical History - Provider Review Nursing Documentation Reviewed: Yes - Infectious Disease Hx of Infectious Diseases: None - Cardiac Hx Congestive Heart Failure: Yes Hx Hypertension: Yes - Pulmonary Hx Respiratory Disorders: No - Neurological Hx Neurological Disorder: No Hx Dementia: Yes Other/Comment: pt denies [place] - HEENT Hx HEENT Disorder: Yes (eyeglasses) - Renal Hx Renal Disorder: No - Endocrine/Metabolic Hx Diabetes Mellitus Type 1: Yes - Hematological/Oncological Hx Blood Disorders: No - Integumentary Hx Dermatological Disorder: Yes Other/Comment: b/l arms skin discolorations, ble bright red multiple foul smelling weeping wounds, dry skin pitting edema - Musculoskeletal/Rheumatological Hx Falls: No - Gastrointestinal Hx Gastrointestinal Disorders: No - Genitourinary/Gynecological Hx Hematuria: Yes - Psychiatric Hx Psychophysiologic Disorder: No Hx Substance Use: No - Anesthesia Hx Anesthesia: No Family/Social History - Physician Review Nursing Documentation Reviewed: Yes Family/Social History: Unknown Family HX Smoking Status: Never Smoked Hx Alcohol Use: No Hx Substance Use: No Allergies/Home Meds Allergies/Adverse Reactions: Allergies No Known Allergies Allergy (Verified 10/11/16 00:11) Home Medications: Home Meds Medication Instructions Recorded Confirmed Lisinopril [Zestril] 40 mg PO DAILY 05/30/16 12/10/16 Review of Systems - Physician Review All systems were reviewed & negative as marked: Yes - Review of Systems Constitutional: Normal. absent: Fevers Eyes: Normal ENT: Normal Respiratory: Normal. absent: SOB, Cough Cardiovascular: Normal. absent: Chest Pain Gastrointestinal: Normal. absent: Abdominal Pain, Diarrhea, Nausea, Food Intolerance Genitourinary Male: Normal. absent: Dysuria, Frequency, Hematuria, Urinary Output Changes Musculoskeletal: Normal. absent: Back Pain, Neck Pain Skin: Cellulitis (+bilateral lower extremities) Neurological: Normal. absent: Headache, Dizziness Endocrine: Normal Hemo/Lymphatic: Normal Psychiatric: Normal Physical Exam Vital Signs Reviewed: Yes Vital Signs Temp Pulse Resp BP Pulse Ox 12/10/16 20:38 98.4 F 109 H 18 158/54 H 99 12/10/16 20:32 98.4 F 94 H 16 158/54 H 96 Temperature: Afebrile Blood Pressure: Normal Pulse: Regular Respiratory Rate: Normal Appearance: Positive for: Well-Appearing, Non-Toxic, Comfortable Pain Distress: None Mental Status: Positive for: Alert and Oriented X 3 Finger Stick Blood Glucose: 370 - Systems Exam Head: Present: Atraumatic, Normocephalic Pupils: Present: PERRL Extroacular Muscles: Present: EOMI Conjunctiva: Present: Normal Ears: Present: Normal, NORMAL TM, Normal Canal. No: Erythema Mouth: Present: Moist Mucous Membranes Pharnyx: Present: Normal. No: ERYTHEMA, EXUDATE, TONSILS ENLARGED, Peritonsilar Swelling, Uvular Deviation, Muffled/Hoarse Voice, Strider, Soft Palate/Uvular Edema Nose (External): Present: Atraumatic Nose (Internal): Present: Normal Inspection Neck: Present: Normal Range of Motion Respiratory/Chest: Present: Clear to Auscultation, Good Air Exchange. No: Respiratory Distress, Accessory Muscle Use Cardiovascular: Present: Regular Rate and Rhythm, Normal S1, S2. No: Murmurs Abdomen: Present: Normal Bowel Sounds. No: Tenderness, Distention, Peritoneal Signs Back: Present: Normal Inspection. No: CVA Tenderness, Midline Tenderness, Paraspinal Tenderness Upper Extremity: Present: Normal Inspection. No: Cyanosis, Edema Lower Extremity: Present: Erythema (Severe confluent erythema with swelling to bilateral lower extremities, right greater than left, fluid oozing from right lower leg/foot area, foul-smelling discharge), Neurovascularly Intact, Capillary Refill < 2 s. No: Edema, Cyanosis Neurological: Present: GCS=15, CN II-XII Intact, Speech Normal, Motor Func Grossly Intact, Normal Sensory Function, Normal Cerebellar Funct Skin: Present: Warm, Dry, Normal Color. No: Rashes Psychiatric: Present: Alert, Oriented x 3, Normal Insight, Normal Concentration Medical Decision Making ED Course and Treatment: 12/10/16 20:40 Impression: 81 year old male complaining of worsening lower leg infection. Differential Diagnosis include but are not limited to: cellulitis vs. DVT vs. sepsis Plan: -- EKG -- Chest X-ray -- Labs, VBG, blood cultures -- Urinalysis, urine cultures -- Vanco -- Zosyn -- Reassess and disposition Prior Visits: Notes and results from previous visits were reviewed. On 10/05/2016, pt was seen in the Emergency department for bilateral leg swelling, mild shortness of breath, and elevated blood sugar. Pt was admitted to the hospital for further evaluation. Progress Notes: 12/10/16 21:59 Reviewed radiology, Chest X-ray shows no active disease. 12/10/16 22:15 Reviewed EKG, sinus rhythm at 96 bpm. PAC. Occasional PVC. Septal infarct. Non- specific T wave changes. 12/10/16 22:40 Reviewed sono, US Duplex Lower Extremities are negative for DVT. 12/10/16 23:[address] Emanuel, covering for Dr. Garcia, who is aware and agrees with plan. [facility] to [facility] observation for cellulitis under Dr. Garcia's service. Requests consults with Dr. Caceres and Dr. Dickerson. - Lab Interpretations Lab Results: 12/10/16 21:15 12/10/16 21:15 Lab Results 12/10/16 21:15: Sodium 129 L, Chloride 94 L, Potassium 3.7, Carbon Dioxide 24, Anion Gap 15, BUN 51 H, Creatinine 1.7 H, Est GFR ( Amer) 47, Est GFR ( Non-Af Amer) 39, Random Glucose 382 H* D, Calcium 8.4, Total Bilirubin 1.7 H, AST 32, ALT 25, Alkaline Phosphatase 174 H, Total Protein 6.6, Albumin 2.7 L, Globulin 3.9, Albumin/Globulin Ratio 0.7 L 12/10/16 21:15: pO2 30, VBG pH 7.36, VBG pCO2 46.0, VBG HCO3 26.0, VBG Total CO2 27.4, VBG O2 Sat (Calc) 55.6, VBG Base Excess 0.2, VBG Potassium 4.5, Sodium 128.0 L, Chloride 98.0, Glucose 403 H*, Lactate 1.7, FiO2 21.0, Venous Blood Potassium 4.5 12/10/16 21:15: WBC 15.2 H D, RBC 3.91, Hgb 11.7 L, Hct 33.3 L, MCV 85.2, MCH 29.9, MCHC 35.1, RDW 12.8, Plt Count 237, MPV 11.6 H, Gran % 89.9 H, Lymph % ( Auto) 5.2 L, [place] % (Auto) 4.7, Eos % (Auto) 0.1 L, Baso % (Auto) 0.1, Gran # 13.65 H, Lymph # 0.8 L, [place] # 0.7 H, Eos # 0.0, Baso # 0.01 12/10/16 21:08: PT 11.9 H, INR 1.10 H, APTT 28.0 I have reviewed the lab results: Yes - RAD Interpretation Radiology Orders: 12/10/16 20:45 CHEST PORTABLE [RAD] Stat 12/10/16 21:48 DUPLEX LOWER EXTRM VEIN BILAT [US] Stat Cutting Tool Sharpener: ED Physician - EKG Interpretation Interpreted by ED Physician: Yes Type: 12 lead EKG - Medication Orders Current Medication Orders: Sodium Chloride (Sodium Chloride 0.9%) 1,000 mls @ 100 mls/hr IV .Q10H STA Stop: 12/11/16 09:14 Discontinued Medications Piperacillin Sod/Tazobactam Sod (Zosyn 3.375 In Ns 100ml) 100 mls @ 200 mls/hr IV STAT STA PRN Reason: Protocol Stop: 12/10/16 21:16 Last Admin: 12/10/16 23:14 Dose: 200 mls/hr Vancomycin HCl/Dextrose (Vancocin) 1 g in 200 mls @ 133.333 mls/hr IV STAT STA PRN Reason: Protocol Stop: 12/10/16 22:17 Insulin Human Regular (Humulin R) 6 units SC STAT STA Stop: 12/10/16 22:40 Last Admin: 12/10/16 23:06 Dose: 6 units - Scribe Statement The provider has reviewed the documentation as recorded by the Hayden Rubin Provider Attestation: All medical record entries made by the Hayden were at my direction and personally dictated by me. I have reviewed the chart and agree that the record accurately reflects my personal performance of the history, physical exam, medical decision making, and the department course for this patient. I have also personally directed, reviewed, and agree with the discharge instructions and disposition. Disposition/Present on Arrival - Present on Arrival Any Indicators Present on Arrival: No History of DVT/PE: No History of Uncontrolled Diabetes: No Urinary Catheter: No History of Decub. Ulcer: No History Surgical Site Infection Following: None - Disposition Have Diagnosis and Disposition been Completed?: Yes Diagnosis: Cellulitis of leg Disposition: HOSPITALIZED Disposition Time: 23:17 Patient Problems: Current Active Problems Problem Status Onset Cellulitis of leg Acute Condition: STABLE Discharge Instructions (ExitCare): Cellulitis (ED) Referrals: Anyi Espinosa, [Non-Staff] - Follow up with primary
[2016-12-10 21:21] LABS: ADD MANUAL DIFF? NO
[2016-12-10 21:30] LABS: VENOUS BLOOD GAS BASE EXCESS 0.2 mmol/L (0.0-2.0); VENOUS BLOOD PH 7.36 (7.32-7.43)
[2016-12-10 21:31] LABS: BASO # 0.01 K/mm3 (0.0-2.0); BASO % 0.1 % (0.0-3.0); EOS % 0.1 % (1.5-5.0); GRAN # 13.65 (1.4-6.5); GRAN % 89.9 % (50.0-68.0); HEMATOCRIT 33.3 % (42.0-52.0); LYMPH # 0.8 (1.2-3.4); LYMPH % 5.2 % (22.0-35.0); MEAN CELL VOLUME 85.2 fL (80.0-105.0); MEAN CORPUSCULAR HEMOGLOBIN 29.9 pg (25.0-35.0); MEAN CORPUSCULAR HGB CONC 35.1 g/dl (31.0-37.0); MEAN PLATELET VOLUME 11.6 fl (7.0-11.0); MONO # 0.7 (0.1-0.6); MONO % 4.7 % (1.0-6.0); PLATELET COUNT 237 10^3/uL (120.0-450.0); RED CELL DISTRIBUTION WIDTH 12.8 % (11.5-14.5); WHITE BLOOD COUNT 15.2 10^3/ul (4.5-11.0)
[2016-12-10 21:34] LABS: ALB/GLOB RATIO 0.7 (1.1-1.8); BILIRUBIN,TOTAL 1.7 mg/dL (0.2-1.3); CALCIUM 8.4 mg/dL (8.4-10.5); POTASSIUM 3.7 mmol/L (3.6-5.0); TOTAL PROTEIN 6.6 g/dL (5.8-8.3)
[2016-12-10 21:36] LABS: INR 1.1 (0.93-1.08)
[2016-12-10] MEDS ORDERED: Insulin Regular 1 UNITS/0.01 ML ML SC STA (22:39)
[2016-12-10] MEDS ORDERED: Sodium Chloride 0.9% 1,000 ML IV STA (23:15)
[2016-12-11 02:45] VITALS: BMI 28.3
--- NOTE | 2016-12-11 09:33 | RAD ---
HISTORY: Sepsis Patient COMPARISON: Chest x-ray performed 10/04/16 TECHNIQUE: Chest, one view. FINDINGS: LUNGS: No focal consolidation. Please note that chest x-ray has limited sensitivity for the detection of pulmonary masses. PLEURA: No significant pleural effusion identified. No definite pneumothorax . CARDIOVASCULAR: Heart size appears top normal. Dense atherosclerotic calcifications of the aorta. OSSEOUS STRUCTURES: Degenerative changes. VISUALIZED UPPER ABDOMEN: Unremarkable. OTHER FINDINGS: None. IMPRESSION: No focal consolidation, significant pleural effusion, or definite pneumothorax identified.
[2016-12-11] MEDS: Insulin Lispro (humaLOG) MIX 75/25(10 ml) SC SCH (10:15)
[2016-12-11] MEDS: Linezolid 600 mg in D5W 300 ml 600 MG/300 ML BAG IVPB SCH ×2 (10:18→22:34)
[2016-12-11] MEDS: Insulin Reg-MEDIUM-Coverage SC SCH ×2 (12:00→22:11)
--- NOTE | 2016-12-11 13:54 | CP.PCM.CON ---
History of Present Illness - History of Present Illness History of Present Illness: 81 year old male with PMH of CAD, chronic CHF, DM, HTN, dementia was brought in to [facility] because of worsening lower extremity swelling, especially on the right, with weeping wounds and pain. There is no note of fevers, no history of patient soaking feet in water or walking barefoot on soil , no loss of consciousness, no vomiting, no diarrhea, no incontinence. Full review of systems is difficult to obtain because of the patient's dementia. Despite antibiotic cream being applied, the right leg continues to have swelling and pain. Infectious diseases consult is requested to further evaluate and manage. Review of Systems - Review of Systems Systems not reviewed;Unavailable: Dementia Past Patient History - Infectious Disease Hx of Infectious Diseases: None - Past Social History Smoking Status: Never Smoked - CARDIAC Hx Congestive Heart Failure: Yes Hx Hypertension: Yes - PULMONARY Hx Respiratory Disorders: No - NEUROLOGICAL Hx Neurological Disorder: No Hx Dementia: Yes Other/Comment: pt denies [place] - HEENT Hx HEENT Problems: Yes (eyeglasses) - RENAL Hx Chronic Kidney Disease: No - ENDOCRINE/METABOLIC Hx Diabetes Mellitus Type 1: Yes - HEMATOLOGICAL/ONCOLOGICAL Hx Blood Disorders: No - INTEGUMENTARY Hx Dermatological Problems: Yes Other/Comment: b/l arms skin discolorations, ble bright red multiple foul smelling weeping wounds, dry skin pitting edema - MUSCULOSKELETAL/RHEUMATOLOGICAL Hx Falls: No - GASTROINTESTINAL Hx Gastrointestinal Disorders: No - GENITOURINARY/GYNECOLOGICAL Hx Hematuria: Yes - PSYCHIATRIC Hx Psychophysiologic Disorder: No - SURGICAL HISTORY Hx Surgeries: No - ANESTHESIA Hx Anesthesia: No Meds Allergies/Adverse Reactions: Allergies Allergy/AdvReac Type Severity Reaction Status Date / Time No Known Allergies Allergy Verified 10/11/16 00:11 - Medications Medications: Current Medications Sodium Chloride (Sodium Chloride 0.9%) 1,000 mls @ 100 mls/hr IV .Q10H STA Stop: 12/11/16 09:14 Last Admin: 12/11/16 00:02 Dose: 100 mls/hr Physical Exam - Constitutional Appears: Non-toxic, No Acute Distress - Head Exam Head Exam: NORMAL INSPECTION - ENT Exam ENT Exam: Mucous Membranes Moist - Neck Exam Neck exam: Negative for: Lymphadenopathy, Meningismus - Respiratory Exam Respiratory Exam: Decreased Breath Sounds - Cardiovascular Exam Cardiovascular Exam: +S1, +S2 - GI/Abdominal Exam GI & Abdominal Exam: Soft. absent: Tenderness - Extremities Exam Additional comments: right leg with erythema, swelling, tenderness on palpation Results - Vital Signs Recent Vital Signs: Last Vital Signs Temp 98.3 F 12/11/16 02:10 Pulse 92 H 12/11/16 02:10 Resp 22 12/11/16 02:10 BP 154/79 H 12/11/16 02:10 Pulse Ox 99 12/10/16 20:38 - Labs Result Diagrams: 12/10/16 21:15 12/10/16 21:15 Labs: Laboratory Results - last 24 hr 12/11/16 01:59 POC Glucose (mg/dL) 312 H Assessment & Plan - Assessment and Plan (Free Text) Plan: Assessment Systemic inflammatory response syndrome, R/O sepsis due to right leg skin and skin structure infection CAD chronic CHF DM HTN dementia Plan Started patient on Zyvox pending blood, wound cx; follow up ultrasound of the legs; follow up Podiatry evaluation will monitor clinically
--- NOTE | 2016-12-11 15:15 | CP.PCM.CON ---
<Autumn Everett - Last Filed: 12/11/16 20:58> History of Present Illness - History of Present Illness History of Present Illness: 81 year old male was seen resting at bedside regarding right leg cellulitis. Patient is a poor historian and yells everytime a question is asked. From the medical record he has a PMHx of CAD, chronic CHF, DM, HTN, dementia. He states that he has pain in his right foot. Past Patient History - Infectious Disease Hx of Infectious Diseases: None - Past Social History Smoking Status: Never Smoked - CARDIAC Hx Congestive Heart Failure: Yes Hx Hypertension: Yes - PULMONARY Hx Respiratory Disorders: No - NEUROLOGICAL Hx Neurological Disorder: No Hx Dementia: Yes Other/Comment: pt denies [place] - HEENT Hx HEENT Problems: Yes (eyeglasses) - RENAL Hx Chronic Kidney Disease: No - ENDOCRINE/METABOLIC Hx Diabetes Mellitus Type 1: Yes - HEMATOLOGICAL/ONCOLOGICAL Hx Blood Disorders: No - INTEGUMENTARY Hx Dermatological Problems: Yes Other/Comment: b/l arms skin discolorations, ble bright red multiple foul smelling weeping wounds, dry skin pitting edema - MUSCULOSKELETAL/RHEUMATOLOGICAL Hx Falls: No - GASTROINTESTINAL Hx Gastrointestinal Disorders: No - GENITOURINARY/GYNECOLOGICAL Hx Hematuria: Yes - PSYCHIATRIC Hx Psychophysiologic Disorder: No - SURGICAL HISTORY Hx Surgeries: No - ANESTHESIA Hx Anesthesia: No Meds Allergies/Adverse Reactions: Allergies Allergy/AdvReac Type Severity Reaction Status Date / Time No Known Allergies Allergy Verified 10/11/16 00:11 - Medications Medications: Current Medications Acetaminophen (Tylenol 325mg Tab) 650 mg PO Q6H PRN PRN Reason: Fever >100.4 F Clonazepam (Klonopin) 0.25 mg PO AMHS COOKIE PRN Reason: Protocol Last Admin: 12/11/16 10:13 Dose: 0.25 mg Furosemide (Lasix) 40 mg PO DAILY [place] Last Admin: 12/11/16 10:15 Dose: 40 mg Linezolid (Zyvox 600mg/300ml D5w) 600 mg in 300 mls @ 200 mls/hr IVPB Q12 [place] PRN Reason: Protocol Stop: 12/19/16 10:01 Last Admin: 12/11/16 10:18 Dose: 200 mls/hr Insulin Human Regular (Humulin R Med) 0 units SC ACHS [place] PRN Reason: Protocol Last Admin: 12/11/16 12:00 Dose: 7 units Insulin Lispro Protam/Lispro Human (Humalog Mix 75/25) 40 units SC ACB [place] Last Admin: 12/11/16 10:15 Dose: 40 units Insulin Lispro Protam/Lispro Human (Humalog Mix 75/25) 40 units SC ACD [place] Lisinopril (Zestril) 40 mg PO DAILY [facility] Last Admin: 12/11/16 10:15 Dose: 40 mg Tramadol/Acetaminophen (Ultracet 37.5/325 Mg) 1 tab PO Q6H PRN PRN Reason: Pain, moderate (4-7) Physical Exam - Constitutional Appears: Combative - Extremities Exam Additional comments: VASC:DP and PT pulses non-palpable. CFT is greatly delayed due to decreased lower extremity profusion and abscess formation. Skin temperature increased on the right LE. Pitting edema noted to RLE. NEURO: unable to assess DERM:Erythema noted to right lower extremity from the midcalf area to the digits distally. Right 5th digit is gangreneous, and right 4th digit is dusky with clinical impending ischemia. Small fluid filled blisters noted to right foot. Open wound noted to the plantar aspect of the right foot sub 5th metatarsal head measure approximately 1 cm by 0.8 cm. THe entire dorsal aspect of the foot is edematous, and erythematous with a boggy consistency indicative of underlying abscess formation. ORTHO: Pain on palpation to right LE. 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 King Chart, labs, vitals reviewed;afebrile, WBC 15.2 Continue iv abx per ID LE US- negative for DVT Radiographs ordered- showed gas gangrene which requires immediate surgical intervention and in effort to avoid sepsis and possible Nurse manager photography called, OR team to be brought in and patient to OR this evening for incision and drainage of the right foot with possible amputation 0f 4th and/ or 5th toes in order to avoid sepsis and NPO status confirmed and consent obtained from daughter for patient to go to OR. His daughter Rissa was informed of the severity of the situation and the immediate need for surgical procedure, she was told at length that given all of this co-morbidities, we cannot guarantee that he will not need a below knee amputation due to his severely compromised blood flow, but we need to quell his spreading infection and release the deadly bacteria in his foot in order to save his life vascular surgery will be consulted immediately for appropriate evaluations <Alan King - Last Filed: 12/11/16 21:11> Meds - Medications Medications: Current Medications Acetaminophen (Tylenol 325mg Tab) 650 mg PO Q6H PRN PRN Reason: Fever >100.4 F Clonazepam (Klonopin) 0.25 mg PO AMHS COOKIE PRN Reason: Protocol Last Admin: 12/11/16 10:13 Dose: 0.25 mg Furosemide (Lasix) 40 mg PO DAILY [facility] Last Admin: 12/11/16 10:15 Dose: 40 mg Hydromorphone HCl (Dilaudid) 0.5 mg IVP Q15M PRN PRN Reason: Pain, moderate (4-7) Stop: 12/11/16 22:49 Linezolid (Zyvox 600mg/300ml D5w) 600 mg in 300 mls @ 200 mls/hr IVPB Q12 [place]IE PRN Reason: Protocol Stop: 12/19/16 10:01 Last Admin: 12/11/16 10:18 Dose: 200 mls/hr Sodium Chloride (Sodium Chloride 0.9%) 1,000 mls @ 75 mls/hr IV .[id number] [facility] Stop: 12/11/16 23:01 Insulin Human Regular (Humulin R Med) 0 units SC ACHS [place] PRN Reason: Protocol Last Admin: 12/11/16 12:00 Dose: 7 units Insulin Lispro Protam/Lispro Human (Humalog Mix 75/25) 40 units SC ACB [facility] Last Admin: 12/11/16 10:15 Dose: 40 units Insulin Lispro Protam/Lispro Human (Humalog Mix 75/25) 40 units SC ACD [facility] Lisinopril (Zestril) 40 mg PO DAILY [facility] Last Admin: 12/11/16 10:15 Dose: 40 mg Oxycodone/Acetaminophen (Percocet 5/325 Mg Tab) 1 tab PO Q4H PRN PRN Reason: Pain, severe (8-10) Stop: 12/14/16 20:44 Tramadol/Acetaminophen (Ultracet 37.5/325 Mg) 1 tab PO Q6H PRN PRN Reason: Pain, moderate (4-7) Results - Vital Signs Recent Vital Signs: Last Vital Signs Temp 98.7 F 12/11/16 20:55 Pulse 90 12/11/16 20:55 Resp 20 12/11/16 20:55 BP 128/67 12/11/16 20:55 Pulse Ox 96 12/11/16 20:55 - Labs Result Diagrams: 12/10/16 21:15 12/10/16 21:15 Labs: Laboratory Results - last 24 hr 12/11/16 12/11/16 12/11/16 01:59 07:41 11:30 POC Glucose (mg/dL) 312 H 268 H 342 H 12/11/16 16:26 POC Glucose (mg/dL) 244 H Attending/Attestation - Attestation I have personally seen and examined this patient.: Yes I have fully participated in the care of the patient.: Yes I have reviewed all pertinent clinical information: Yes
--- NOTE | 2016-12-11 16:06 | RAD ---
Right foot radiographs Comparison: None available Indication: Right leg cellulitis Findings: Gas bubbles are noted within soft tissues at the level of the mid/distal foot, particularly laterally. Osseous demineralization limits evaluation for acute fracture lines. No acute displaced fracture is identified. Extensive soft tissue swelling. No evidence of radiopaque foreign body. Impression: Extensive soft tissue swelling and gas bubbles noted within the soft tissues at the level of the mid/distal foot, particularly laterally. Correlate clinically for necrotizing infection/cellulitis. Please note that evaluation of the osseous structures, in particular of the mid to lateral distal foot obscured by bubbles of gas as well as osseous demineralization. Most sensitive detection for osteomyelitis is achieved with MRI without and with IV contrast. Findings discussed with JOSE Olmstead on 12/11/16 at 4:01 p.m..
--- NOTE | 2016-12-11 16:24 | HP ---
HISTORY OF PRESENT ILLNESS: The patient is an 81-year-old known to me from previous admission and wa s brought to Emergency Room by family because of worsening right foot pain and swelling. He has bila teral leg swelling, right more than the left. No history of trauma or fall recently and there is no history of fever or chills. PAST MEDICAL HISTORY: 1. Hypertension. 2. Congestive heart failure. 3. Left ventricular systolic dysfunction. 4. Non-insulin dependent diabetes. 5. Dementia. SOCIAL HISTORY: He lives with his family. Denies smoking or drinking. The patient was recently dis charged on 11/02/2016. MEDICATIONS AT HOME: The patient is on Humalog 40 units before breakfast and 40 units before dinner. He is on Klonopin, Lasix 40 daily, lisinopril 40 mg daily and Zyvox. REVIEW OF SYSTEMS: Significant for bilateral leg swelling and the right foot is extremely swollen, e rythematous and has yellow, pus-like discharge on the lateral aspect of his right foot. PHYSICAL EXAMINATION: Awake and alert, screams upon touching his right leg and foot. LABORATORY DATA: WBC is 15.2, hemoglobin 11.7, hematocrit 33, platelet 237. PT 11.9, INR 1.10. Janee roland: Sodium 129, potassium 3.7, chloride 94, CO2 24, BUN 51, creatinine 1.7, blood sugar of 342, total bilirubin 1.7. ASSESSMENT: 1. Right foot cellulitis, bilateral leg cellulitis and right foot cellulitis. 2. Systolic left ventricular dysfunction. 3. Insulin-dependent diabetes. 4. Hypertension. 5. Dementia. PLAN: The patient has been started on vancomycin. The patient was given Zosyn and vancomycin in the ER, has been started on Zyvox by Dr. Townsend. Will monitor his blood sugar, continue him on Klonopin, continue him on Lasix and analgesic as needed. Podiatry consult by Dr. Caceres has been requested. Dr. Garcia will follow up patient in a.m. Ashlie Emanuel MD cc: [phone] TT: 12/11/2016 16:23:37 ln
[2016-12-11] MEDS ORDERED: Succinylcholine 200 mg/10 ml Inj IV ONE (19:08)
[2016-12-11] MEDS ORDERED: Etomidate 20 mg/10ml Inj IV ONE (19:08)
[2016-12-11] MEDS ORDERED: Gentamicin 80 mg/2mL Inj. ONE (19:20)
[2016-12-11] MEDS ORDERED: Bupivacaine 0.5% Inj(30mL) ONE (19:39)
[2016-12-11] MEDS ORDERED: Lidocaine 2% Inj (20ml) ONE (19:39)
[2016-12-11] MEDS ORDERED: Oxychlorosene Topical 2 gm Packet TOP ONE (19:56)
[2016-12-11] MEDS ORDERED: ePHEDrine 50 mg/ml Inj ONE (20:15)
[2016-12-11] MEDS ORDERED: Phenylephrine 10 mg/ml Inj ONE (20:15)
[2016-12-11] MEDS ORDERED: Oxycodone/Acetaminophen 5/325 mg Tab PO PRN (20:43)
[2016-12-11] MEDS ORDERED: HYDROmorphone 0.5 mg/0.5 ml ISec IVP PRN (20:48)
[2016-12-11] MEDS ORDERED: HYDROmorphone 0.5 mg/0.5 ml ISec IVP ONE (20:50)
[2016-12-11] MEDS ORDERED: HYDROmorphone 0.5 mg/0.5 ml ISec ONE (20:57)
[2016-12-11] MEDS ORDERED: Sodium Chloride 0.9% 1,000 ML IV SCH (21:00)
--- NOTE | 2016-12-11 22:07 | CARD ---
APPROVED REPORT EKG Measurement Heart [id number] DC 144P [id number] <Conclusion> Sinus rhythm with frequent PVCs Septal infarct, age undetermined T wave abnormality, consider lateral ischemia Abnormal ECG
--- NOTE | 2016-12-11 22:36 | OP ---
PROCEDURE DATE: 12/11/2016 HISTORY OF PRESENT ILLNESS: An 81-year-old male who has presented to the Emergency Room yesterday co mplaining of right leg pain of unknown duration due to his dementia. 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ry resident called my cell phone and sent x-ray pictures which revealed large pres ence of gas gangrene which if untreated can lead to sepsis and . I arrived at the hospital and spoke with his daughter, Rissa, and told her that her father has multiple comorbidities including diabetes and severe peripheral arterial disease, and at this time, he needs immediate surgical inter vention to stop his right foot infection from spreading up his legs and reaching his organs into a co ndition we call sepsis which can lead to . I informed her that under normal circumstances the a ppropriate cardiac and vascular consultations are warranted in an effort to ascertain the patient's a bility to undergo surgery successfully; however, this is an emergency case and he needs to have his f oot opened and the deadly bacteria in it drained as soon as possible. She was also told that his fif th toe has become gangrenous and his fourth toe is quickly becoming gangrenous due to the spread of h is infection which strangulates his already severely compromised blood circulation. The patient's da ughter agreed and stated that if it was necessary then we should do what we had to in an effort to at tempt to save her father. Consent was taken over the phone for surgery, as well as anesthesia. SURGEON: Alan King DPM. PRINTING MANAGER: Autumn Everett DPM. PREOPERATIVE DIAGNOSIS: Gas gangrene with severe spreading abscess formation on the right foot. POSTOPERATIVE DIAGNOSIS: Gas gangrene with severe spreading abscess formation on the right foot. PROCEDURE: Incision and drainage of right foot with amputation of the right fifth gangrenous toe. PATHOLOGY: Necrotic foul smelling tissue, as well as fifth amputated digit, which included the proxi mal middle and distal phalanges. HEMOSTASIS: None used. ESTIMATED BLOOD LOSS: Minimal. MATERIALS USED: Sterile 1 inch iodoform packing, sterile 4 x 4 gauze, sterile abdominal pads and suraj rile Kerlix. INJECTABLES: Approximately 20 mL of 2% lidocaine plain and 0.05% Marcaine plain was infiltrated in a right ankle block fashion and after the patient was given general anesthesia. PROCEDURE IN DETAIL: The patient was brought into the operating room in his hospital bed and transfe rred from his hospital bed on to the surgical table. Following a period of general anesthesia, an an kle block was given consisting of approximately 20 mL of a 1:1 ratio of % Marcaine plain and 2% lidocaine plain. Foot was scrubbed, prepped and draped in the usual aseptic manner. Attention was t hen directed to the lateral aspect of the right foot where there was noted to be extremely foul-smell ing discharge emanating from the plantar and dorsal aspects of the foot where there were noted to be full thickness ulcerations. The entire right fifth digit was gangrenous and nonviable at this time. The adjacent right fourth digit was ischemic with severely compromised capillary filling time. Usin g a #15 blade, an incision was made at the fourth interspace proximally on the dorsal aspect of the f oot where a copious amount of foul smelling purulent discharge emanated at the immediate entrance of the 15 blade. The incision site was lengthened distally and purulence continued to flow out of the w ound exposing necrotic, gangrenous, nonviable tissue. The incision was extended in a racquet type in cision encompassing the entire aspect of the fifth digit. At this point, a culture and sensitivity w as taken of the purulent foul smelling discharge. The incision was deepened at the fifth digit and t he fifth gangrenous toe was removed in toto. It was noted that copious amounts of purulence continue d to flow out of the incision site. Using a #15 blade and sterile scissors as much necrotic foul sme lling tissue was removed as possible. At this point, all of the tissue planes laterally, proximally, dorsally and medially were gently opened and purulence continued to flow. Using the suction as much purulence was extracted as possible. At this point, a copious amount of Clorpactin solution was use d to flush the area and the foot was manually expressed and there was noted to be continued purulence coming from the medial aspect and proximal aspect of the foot. The tip of the suction probe was the n proximally placed along all the open tissue planes and more purulence continued to emanate from the se areas. The foot was then manually expressed and there was noted to be purulence, which was decrea sing at this time. At this point, there was noted to be a flocculent, boggy area over the second int ermetatarsal space where an incision was made and there was noted to be more purulence emanating from this area. All the tissue planes were opened up in this area and the area was flushed with Clorpact in solution and manually expressed. It was noted to be no longer any purulence coming from this area . Further inspection on the lateral incision revealed no longer any purulence emanating from the are a and all necrotic gangrenous nonviable tissue was again excised. It was noted that the fifth metata rsal head was present. However, the bone appeared viable at this time. Next, utilizing a pulse lava ge all the open areas were flushed with 1000 mL of gentamicin infused saline. The wounds were gently packed with iodoform packing and sterile gauze, sterile abdominal pads and Kerlix was applied to the foot. It should be noted that there was minimal bleeding occurring during the entire surgery, indic ative of severe peripheral arterial disease. Cardiac, vascular and general surgery will be consulted in the morning to evaluate the patient as to whether a below-knee amputation may be warranted if the wound does not heal. The patient was transported from the operating room to the recovery room with all vital signs stable and we will resume all preoperative medications and add Percocet 5/325 mg ever y 4 hours as needed for pain. The patient will be seen in the a.m. Alan King DPM cc: [id number] TT: 12/11/2016 22:35:59 [email or web address]
--- NOTE | 2016-12-12 05:26 | CP.PCM.PN ---
Subjective - Date & Time of Evaluation Date of Evaluation: 12/12/16 Time of Evaluation: 05:24 - Subjective Subjective: Patient was seen at bed side. S/P I & D, Right 5th toe amputation. 186/84, 101.6*F, HR 110/min, Pulse ox 99% on 2L/min. Right foot dressing soaked with serosanguinous fluid. This 81 year old male was admitted with both leg swelling, bilateral foot cellulitis. Has PMH of HTN,CHF, left ventricular systolic dysfunction, dementia. Objective - Vital Signs/Intake and Output Vital Signs (last 24 hours): Temp Pulse Resp BP Pulse Ox 98.1 F 82 20 162/73 H 94 L 12/11/16 21:30 12/11/16 21:30 12/11/16 21:30 12/11/16 21:30 12/11/16 21:30 Intake and Output: 12/11/16 12/12/16 18:59 06:59 Intake Total 640 0 Output Total 900 600 Balance -260 -600 - Medications Medications: Current Medications Acetaminophen (Tylenol 325mg Tab) 650 mg PO Q6H PRN PRN Reason: Fever >100.4 F Clonazepam (Klonopin) 0.25 mg PO AMHS [facility] PRN Reason: Protocol Last Admin: 12/11/16 22:29 Dose: 0.25 mg Furosemide (Lasix) 40 mg PO DAILY [facility] Last Admin: 12/11/16 10:15 Dose: 40 mg Linezolid (Zyvox 600mg/300ml D5w) 600 mg in 300 mls @ 200 mls/hr IVPB Q12 [facility] PRN Reason: Protocol Stop: 12/19/16 10:01 Last Admin: 12/11/16 22:34 Dose: 200 mls/hr Insulin Human Regular (Humulin R Med) 0 units SC ACHS [facility] PRN Reason: Protocol Last Admin: 12/11/16 22:11 Dose: Not Given Insulin Lispro Protam/Lispro Human (Humalog Mix 75/25) 40 units SC ACB [facility] Last Admin: 12/11/16 10:15 Dose: 40 units Insulin Lispro Protam/Lispro Human (Humalog Mix 75/25) 40 units SC ACD [facility] Lisinopril (Zestril) 40 mg PO DAILY [facility] Last Admin: 12/11/16 10:15 Dose: 40 mg Oxycodone/Acetaminophen (Percocet 5/325 Mg Tab) 1 tab PO Q4H PRN PRN Reason: Pain, severe (8-10) Stop: 12/14/16 20:44 Tramadol/Acetaminophen (Ultracet 37.5/325 Mg) 1 tab PO Q6H PRN PRN Reason: Pain, moderate (4-7) - Labs Labs: PT 11.9 Seconds (9.9-11.8) H 12/10/16 21:08 INR 1.10 (0.93-1.08) H 12/10/16 21:08 APTT 28.0 Seconds (23.7-30.8) 12/10/16 21:08 - Constitutional Appears: Well, No Acute Distress - Head Exam Head Exam: ATRAUMATIC, NORMAL INSPECTION, NORMOCEPHALIC - Eye Exam Eye Exam: Normal appearance - ENT Exam ENT Exam: Normal External Ear Exam - Neck Exam Neck Exam: Normal Inspection - Respiratory Exam Respiratory Exam: NORMAL BREATHING PATTERN - Cardiovascular Exam Cardiovascular Exam: absent: JVD - GI/Abdominal Exam GI & Abdominal Exam: absent: Distended - Rectal Exam Rectal Exam: Deferred - Extremities Exam Extremities Exam: Normal Inspection Additional comments: both leg swelling + R>L Right foot redness + - Back Exam Back Exam: NORMAL INSPECTION - Neurological Exam Neurological Exam: Alert, Awake - Psychiatric Exam Psychiatric exam: Normal Affect, Normal Mood - Skin Skin Exam: Normal Color Assessment and Plan - Assessment and Plan (Free Text) Assessment: Right foot cellulitis. Both leg swelling. HTN. Dementia. Left ventricular systolic dysfunction. CHF. Plan: Zestril 40 mg PO now instead of at 10:00AM. Tylenol as per order. Nurse will notify . Continue present management.
[2016-12-12 07:59] LABS: ALB/GLOB RATIO 0.7 (1.1-1.8); BILIRUBIN,TOTAL 1.1 mg/dL (0.2-1.3); CALCIUM 7.6 mg/dL (8.4-10.5); POTASSIUM 3.5 mmol/L (3.6-5.0); TOTAL PROTEIN 5.4 g/dL (5.8-8.3)
[2016-12-12] MEDS: Insulin Reg-MEDIUM-Coverage SC SCH ×4 (08:13→22:08)
--- NOTE | 2016-12-12 08:17 | PN ---
DATE: 12/12/2016 SUBJECTIVE: This is an 81-year-old male who is coming into the hospital. The patient had right leg pain. The patient was noted to have diabetic right foot ulcer. There was a gas gangrene in the rig ht foot. The patient was taken to the OR for intervention. There was an I and D that was done of th e right foot with amputation of the right 5th toe. PHYSICAL EXAMINATION: VITAL SIGNS: Temperature is 101.6, pulse of 110, blood pressure 186/84, respirations 24. GENERAL: The patient comfortable, in no acute distress. HEENT: Anicteric sclerae. Moist mucosa. NECK: No JVD or adenopathy. CARDIAC: S1/S2. No murmurs. No rubs. Regular. RESPIRATORY: Clear to auscultation bilaterally. No wheezes, rales, or rhonchi. Good air entry. ABDOMEN: Bowel sounds are positive, soft, nontender, and nondistended. EXTREMITIES: No edema. Has 1+ pulses. On the right foot, there is a dressing in place. ASSESSMENT: 1. Right 5th toe gangrene, status post irrigation and debridement and amputation, postoperative day #1. 2. Sepsis. 3. Fever. 4. Hypertension, ____. 5. Diabetes, type 2. 6. Dementia, Alzheimer's type. PLAN: The patient is currently comfortable. He is on lisinopril for his diabetes. He is on Klonopi n. He is going to continue with Lasix. He is on ____ for pain. He is being followed by ID. He is on linezolid. He has Doppler studies that are ordered. He has cultures that are pending. He is on ____ for pain. He is on a diabetic diet. His overall prognosis is guarded. Will continue to follow closely. Bruno Garcia MD cc: [id number] TT: 12/12/2016 07:56:18 Confirmation # [id number] Dictation # [id number] mn
[2016-12-12 08:27] LABS: ADD MANUAL DIFF? NO
[2016-12-12 08:29] LABS: BASO # 0.02 K/mm3 (0.0-2.0); BASO % 0.2 % (0.0-3.0); EOS % 0.2 % (1.5-5.0); GRAN # 11.15 (1.4-6.5); GRAN % 88.2 % (50.0-68.0); LYMPH # 0.6 (1.2-3.4); LYMPH % 4.7 % (22.0-35.0); MEAN CELL VOLUME 84.8 fL (80.0-105.0); MEAN CORPUSCULAR HEMOGLOBIN 28.9 pg (25.0-35.0); MEAN CORPUSCULAR HGB CONC 34.1 g/dl (31.0-37.0); MEAN PLATELET VOLUME 11.6 fl (7.0-11.0); MONO # 0.9 (0.1-0.6); MONO % 6.7 % (1.0-6.0); PLATELET COUNT 223 10^3/uL (120.0-450.0); RED CELL DISTRIBUTION WIDTH 12.8 % (11.5-14.5); WHITE BLOOD COUNT 12.6 10^3/ul (4.5-11.0)
[2016-12-12] MEDS: Insulin Lispro (humaLOG) MIX 75/25(10 ml) SC SCH ×3 (08:54→16:54)
[2016-12-12] MEDS ORDERED: Cefepime IV 2 gm in NS 2 GM/100 ML BAG IVPB SCH (09:17)
--- NOTE | 2016-12-12 09:51 | CP.PCM.PN ---
Subjective - Date & Time of Evaluation Date of Evaluation: 12/12/16 Time of Evaluation: 09:47 - Subjective Subjective: 81 y/o male seen at bedside with Dr. Caceres 1 day s/p emergency I&D with 5th digit amputation of right foot from gas gangrene. Patient denies any acute events overnight. Dressing remains clean,intact with serous strikethrough on bandage. Patient denies any n/f/v/d/c/sob. Objective - Vital Signs/Intake and Output Vital Signs (last 24 hours): Temp Pulse Resp BP Pulse Ox 101.6 F H 110 H 24 186/84 H 94 L 12/12/16 07:30 12/12/16 07:30 12/12/16 07:30 12/12/16 07:30 12/12/16 07:30 Intake and Output: 12/12/16 12/12/16 06:59 18:59 Intake Total 0 Output Total 600 Balance -600 - Medications Medications: Current Medications Acetaminophen (Tylenol 325mg Tab) 650 mg PO Q6H PRN PRN Reason: Fever >100.4 F Last Admin: 12/12/16 05:32 Dose: 650 mg Clonazepam (Klonopin) 0.25 mg PO AMHS [facility] PRN Reason: Protocol Last Admin: 12/11/16 22:29 Dose: 0.25 mg Furosemide (Lasix) 40 mg PO DAILY [facility] Last Admin: 12/11/16 10:15 Dose: 40 mg Linezolid (Zyvox 600mg/300ml D5w) 600 mg in 300 mls @ 200 mls/hr IVPB Q12 [facility] PRN Reason: Protocol Stop: 12/19/16 10:01 Last Admin: 12/11/16 22:34 Dose: 200 mls/hr Meropenem 1g/NS 100mL IVPB (Meropenem 1g/Ns 100ml Ivpb) 1 gm in 100 mls @ 100 mls/hr IVPB Q12 [facility] PRN Reason: Protocol Stop: 12/20/16 09:20 Insulin Human Regular (Humulin R Med) 0 units SC ACHS [facility] PRN Reason: Protocol Last Admin: 12/12/16 08:13 Dose: 5 units Insulin Lispro Protam/Lispro Human (Humalog Mix 75/25) 40 units SC ACB [facility] Last Admin: 12/12/16 08:54 Dose: 40 units Insulin Lispro Protam/Lispro Human (Humalog Mix 75/25) 40 units SC ACD [facility] Lisinopril (Zestril) 40 mg PO DAILY [facility] Last Admin: 12/12/16 09:16 Dose: Not Given Oxycodone/Acetaminophen (Percocet 5/325 Mg Tab) 1 tab PO Q4H PRN PRN Reason: Pain, severe (8-10) Stop: 12/14/16 20:44 Tramadol/Acetaminophen (Ultracet 37.5/325 Mg) 1 tab PO Q6H PRN PRN Reason: Pain, moderate (4-7) - Labs Labs: 12/12/16 07:55 12/12/16 07:35 PT 11.9 Seconds (9.9-11.8) H 12/10/16 21:08 INR 1.10 (0.93-1.08) H 12/10/16 21:08 APTT 28.0 Seconds (23.7-30.8) 12/10/16 21:08 - Constitutional Appears: Well, Non-toxic, No Acute Distress - Extremities Exam Additional comments: VASC:DP and PT pulses dopplerable. CFT is greatly delayed due to decreased lower extremity profusion and abscess formation. Skin temperature increased on the right LE. Pitting edema noted to RLE. NEURO: unable to assess DERM:Erythema noted to right lower extremity from the midcalf area to the digits distally. 2 surgical incision sites left open with packing inside, one along the 4th metatarsal and one along third metatarsal- wound tracks up proximally to rearfoot, exposed tendon and bone noted on dorsum of foot, severe malodor, no active drainage, no purulence ORTHO: Pain on palpation to right LE. - Neurological Exam Neurological Exam: Alert, Awake, Oriented x3 - Psychiatric Exam Psychiatric exam: Normal Affect, Normal Mood Assessment and Plan - Assessment and Plan (Free Text) Assessment: 81 y/o male seen at bedside 1 day s/p right foot incision and drainage with 5th digit amputation secondary to gas gangrene Plan: patient evaluated and chart reviewed labs and vitals reviewed; 101.6 Tmax, WBC 12.6 continue IV abx per ID copiously flushed right foot wounds with betadine mixed with saline, 1/2 inch iodoform packing, DSD, kerlix applied discussed with patient possible need for further surgery will continue to follow while patient remains in house
--- NOTE | 2016-12-12 09:57 | CP.PCM.CON ---
<GonzalesNati - Last Filed: 12/12/16 13:50> History of Present Illness - History of Present Illness History of Present Illness: Vascular Surgery Consult Note for Dr. Greer 81 year old male with past medical history of HTN, CHF, DM, and dementia presents to [facility] [place] with worsening right foot pain and swelling. Vascular surgery was consulted for PAD and evaluation for BKA. History per patient's daughter, patient's bilateral LE swelling started about a year ago and has been getting worse for the past week. The right leg pain started about 3 weeks ago and has been getting progressively. Patient is a former smoker, patient quit smoking 36 years ago. At home patient uses a walker to move around. Daughter reports patient is in early stages of dementia, he often shouts and gets agitated easily. No reported trauma to his lower extremities. Patient was found to have gas gangrene of right foot through foot Xray. Podiatry was consulted and patient underwent emergent I&D and amputation of 5th right toe. Patient denies headache, fever, chills, shortness of breath, chest pain, nausea, vomiting, or diarrhea. PMD: Dr. Garcia PMHx: HTN, CHF, DM, and dementia Allergy: NKDA Social Hx: Former smoker, denies alcohol and other drug use Family Hx: unknown Home meds: See MAR Review of Systems - Review of Systems Systems not reviewed;Unavailable: Dementia - Constitutional Constitutional: As Per HPI. absent: Chills, Fever - EENT Eyes: As Per HPI Ears: As Per HPI Nose/Mouth/Throat: As Per HPI - Cardiovascular Cardiovascular: As Per HPI, Leg Edema, Leg Ulcers, Pedal Edema. absent: Chest Pain, Dyspnea, Syncope - Gastrointestinal Gastrointestinal: As Per HPI. absent: Abdominal Pain, Diarrhea, Vomiting - Musculoskeletal Musculoskeletal: As Per HPI, Other (right foot pain) - Integumentary Integumentary: As Per HPI, Lesions (right lower extremity), Swelling (bilateral lower extremity) - Neurological Neurological: As Per HPI. absent: Dizziness, Numbness, Syncope, Tingling - Psychiatric Psychiatric: As Per HPI - Endocrine Endocrine: As Per HPI - Hematologic/Lymphatic Hematologic: As Per HPI Past Patient History - Infectious Disease Hx of Infectious Diseases: None - Past Social History Smoking Status: Never Smoked - CARDIAC Hx Congestive Heart Failure: Yes Hx Hypertension: Yes - PULMONARY Hx Respiratory Disorders: No - NEUROLOGICAL Hx Neurological Disorder: No Hx Dementia: Yes Other/Comment: pt denies [place] - HEENT Hx HEENT Problems: Yes (eyeglasses) - RENAL Hx Chronic Kidney Disease: No - ENDOCRINE/METABOLIC Hx Diabetes Mellitus Type 1: Yes - HEMATOLOGICAL/ONCOLOGICAL Hx Blood Disorders: No - INTEGUMENTARY Hx Dermatological Problems: Yes Other/Comment: b/l arms skin discolorations, ble bright red multiple foul smelling weeping wounds, dry skin pitting edema - MUSCULOSKELETAL/RHEUMATOLOGICAL Hx Falls: No - GASTROINTESTINAL Hx Gastrointestinal Disorders: No - GENITOURINARY/GYNECOLOGICAL Hx Hematuria: Yes - PSYCHIATRIC Hx Psychophysiologic Disorder: No - SURGICAL HISTORY Hx Surgeries: No - ANESTHESIA Hx Anesthesia: No Meds Allergies/Adverse Reactions: Allergies Allergy/AdvReac Type Severity Reaction Status Date / Time No Known Allergies Allergy Verified 10/11/16 00:11 - Medications Medications: Current Medications Acetaminophen (Tylenol 325mg Tab) 650 mg PO Q6H PRN PRN Reason: Fever >100.4 F Last Admin: 12/12/16 05:32 Dose: 650 mg Clonazepam (Klonopin) 0.25 mg PO AMHS [facility] PRN Reason: Protocol Last Admin: 12/11/16 22:29 Dose: 0.25 mg Furosemide (Lasix) 40 mg PO DAILY [facility] Last Admin: 12/11/16 10:15 Dose: 40 mg Linezolid (Zyvox 600mg/300ml D5w) 600 mg in 300 mls @ 200 mls/hr IVPB Q12 [facility] PRN Reason: Protocol Stop: 12/19/16 10:01 Last Admin: 12/11/16 22:34 Dose: 200 mls/hr Meropenem 1g/NS 100mL IVPB (Meropenem 1g/Ns 100ml Ivpb) 1 gm in 100 mls @ 100 mls/hr IVPB Q12 [facility] PRN Reason: Protocol Stop: 12/20/16 09:20 Insulin Human Regular (Humulin R Med) 0 units SC ACHS [facility] PRN Reason: Protocol Last Admin: 12/12/16 08:13 Dose: 5 units Insulin Lispro Protam/Lispro Human (Humalog Mix 75/25) 40 units SC ACB [facility] Last Admin: 12/12/16 08:54 Dose: 40 units Insulin Lispro Protam/Lispro Human (Humalog Mix 75/25) 40 units SC ACD [facility] Lisinopril (Zestril) 40 mg PO DAILY [facility] Last Admin: 12/12/16 09:16 Dose: Not Given Oxycodone/Acetaminophen (Percocet 5/325 Mg Tab) 1 tab PO Q4H PRN PRN Reason: Pain, severe (8-10) Stop: 12/14/16 20:44 Tramadol/Acetaminophen (Ultracet 37.5/325 Mg) 1 tab PO Q6H PRN PRN Reason: Pain, moderate (4-7) Physical Exam - Constitutional Appears: Non-toxic, No Acute Distress - Head Exam Head Exam: ATRAUMATIC, NORMAL INSPECTION - Eye Exam Eye Exam: EOMI, Normal appearance - ENT Exam ENT Exam: Mucous Membranes Moist - Neck Exam Neck exam: Positive for: Normal Inspection - Respiratory Exam Respiratory Exam: absent: Respiratory Distress - Cardiovascular Exam Cardiovascular Exam: +S1, +S2 - GI/Abdominal Exam GI & Abdominal Exam: Soft - Extremities Exam Extremities exam: Positive for: tenderness (right foot tenderness) Additional comments: Dopplerable PT signal on right foot, unable to assess DP due to wound dressing. Dopplerable PT and DP on left foot Palpable popliteal and femoral pulses bilaterally Bilateral LE edema and erythema R>L Right foot dressing intact, soaked with pink serous fluid - Neurological Exam Neurological exam: Alert - Psychiatric Exam Psychiatric exam: Agitated - Skin Skin Exam: Erythema, Warm Results - Vital Signs Recent Vital Signs: Last Vital Signs Temp 101.6 F H 12/12/16 07:30 Pulse 110 H 12/12/16 07:30 Resp 24 12/12/16 07:30 BP 186/84 H 12/12/16 07:30 Pulse Ox 94 L 12/12/16 07:30 - Labs Result Diagrams: 12/12/16 07:55 12/12/16 07:35 Labs: Laboratory Results - last 24 hr 12/11/16 12/11/16 12/11/16 11:30 16:26 21:32 WBC RBC Hgb Hct MCV MCH MCHC RDW Plt Count MPV Gran % Lymph % (Auto) [place] % (Auto) Eos % (Auto) Baso % (Auto) Gran # Lymph # [place] # Eos # Baso # Sodium Potassium Chloride Carbon Dioxide Anion Gap BUN Creatinine Est GFR ( Amer) Est GFR (Non-Af Amer) POC Glucose (mg/dL) 342 H 244 H 267 H Random Glucose Calcium Magnesium Total Bilirubin AST ALT Alkaline Phosphatase Total Protein Albumin Globulin Albumin/Globulin Ratio 12/12/16 12/12/16 12/12/16 07:34 07:35 07:55 WBC 12.6 H RBC 3.42 L Hgb 9.9 L Hct 29.0 L MCV 84.8 MCH 28.9 MCHC 34.1 RDW 12.8 Plt Count 223 MPV 11.6 H Gran % 88.2 H Lymph % (Auto) 4.7 L [place] % (Auto) 6.7 H Eos % (Auto) 0.2 L Baso % (Auto) 0.2 Gran # 11.15 H Lymph # 0.6 L [place] # 0.9 H Eos # 0.0 Baso # 0.02 Sodium 130 L Potassium 3.5 L Chloride 101 Carbon Dioxide 21 Anion Gap 12 BUN 51 H Creatinine 1.7 H Est GFR ( Amer) 47 Est GFR (Non-Af Amer) 39 POC Glucose (mg/dL) 281 H Random Glucose 260 H Calcium 7.6 L Magnesium 2.0 Total Bilirubin 1.1 AST 22 ALT 30 Alkaline Phosphatase 141 H Total Protein 5.4 L Albumin 2.2 L Globulin 3.2 Albumin/Globulin Ratio 0.7 L Assessment & Plan - Assessment and Plan (Free Text) Assessment: 81 year old male past medical history of HTN, CHF, DM, and dementia was found to have gas gangrene of right foot. Patient is s/p right foot incision and drainage with 5th digit amputation POD#1. Vascular surgery was consulted for PAD and evaluation for BKA. Plan: Right lower extremity PAD -s/p right foot incision and drainage with 5th digit amputation secondary to gas gangrene POD #1 -Lower extremity arterial ultrasound result pending -No BKA indicated at this time as patient has active cellulitis -DVT in the ED showed negative DVT -Medical management per primary team -D/w attending Dr. Greer <Vania Greer - Last Filed: 12/13/16 10:40> Meds - Medications Medications: Current Medications Acetaminophen (Tylenol 325mg Tab) 650 mg PO Q6H PRN PRN Reason: Fever >100.4 F Last Admin: 12/12/16 16:46 Dose: 650 mg Amlodipine Besylate (Norvasc) 10 mg PO DAILY [facility] Last Admin: 12/12/16 11:25 Dose: 10 mg Clonazepam (Klonopin) 0.5 mg PO AMHS [facility] PRN Reason: Protocol Last Admin: 12/12/16 22:17 Dose: 0.5 mg Furosemide (Lasix) 40 mg PO DAILY [facility] Last Admin: 12/12/16 11:25 Dose: 40 mg Linezolid (Zyvox 600mg/300ml D5w) 600 mg in 300 mls @ 200 mls/hr IVPB Q12 [facility] PRN Reason: Protocol Stop: 12/19/16 10:01 Last Admin: 12/12/16 22:18 Dose: 200 mls/hr Meropenem 1g/NS 100mL IVPB (Meropenem 1g/Ns 100ml Ivpb) 1 gm in 100 mls @ 100 mls/hr IVPB Q12 [facility] PRN Reason: Protocol Stop: 12/20/16 09:20 Last Admin: 12/12/16 22:15 Dose: 100 mls/hr Insulin Human Regular (Humulin R Med) 0 units SC ACHS [facility] PRN Reason: Protocol Last Admin: 12/13/16 08:28 Dose: 1 units Insulin Lispro Protam/Lispro Human (Humalog Mix 75/25) 40 units SC ACB [facility] Last Admin: 12/13/16 08:28 Dose: 40 units Insulin Lispro Protam/Lispro Human (Humalog Mix 75/25) 40 units SC ACD [facility] Last Admin: 12/12/16 16:54 Dose: Not Given Lisinopril (Zestril) 40 mg PO DAILY [facility] Last Admin: 12/12/16 09:16 Dose: Not Given Oxycodone/Acetaminophen (Percocet 5/325 Mg Tab) 1 tab PO Q4H PRN PRN Reason: Pain, severe (8-10) Stop: 12/14/16 20:44 Tramadol/Acetaminophen (Ultracet 37.5/325 Mg) 1 tab PO Q6H PRN PRN Reason: Pain, moderate (4-7) Results - Vital Signs Recent Vital Signs: Last Vital Signs Temp 99.3 F 12/13/16 07:30 Pulse 77 12/13/16 07:30 Resp 22 12/13/16 07:30 BP 155/69 H 12/13/16 07:30 Pulse Ox 94 L 12/13/16 07:30 - Labs Result Diagrams: 12/13/16 07:47 12/13/16 07:47 Labs: Laboratory Results - last 24 hr 12/12/16 12/12/16 12/13/16 16:26 21:10 07:34 WBC RBC Hgb Hct MCV MCH MCHC RDW Plt Count MPV Sodium Potassium Chloride Carbon Dioxide Anion Gap BUN Creatinine Est GFR ( Amer) Est GFR (Non-Af Amer) POC Glucose (mg/dL) 168 H 157 H 197 H Random Glucose Calcium Total Bilirubin AST ALT Alkaline Phosphatase Total Protein Albumin Globulin Albumin/Globulin Ratio 12/13/16 12/13/16 07:47 07:47 WBC 12.6 H RBC 3.40 L Hgb 9.7 L Hct 28.8 L MCV 84.7 MCH 28.5 MCHC 33.7 RDW 13.0 Plt Count 253 MPV 11.1 H Sodium 131 L Potassium 3.2 L Chloride 102 Carbon Dioxide 23 Anion Gap 9 L BUN 49 H Creatinine 1.7 H Est GFR ( Amer) 47 Est GFR (Non-Af Amer) 39 POC Glucose (mg/dL) Random Glucose 163 H Calcium 7.6 L Total Bilirubin 0.8 AST 20 ALT 26 Alkaline Phosphatase 130 Total Protein 5.2 L Albumin 2.1 L Globulin 3.2 Albumin/Globulin Ratio 0.7 L
--- NOTE | 2016-12-12 10:18 | RAD ---
PROCEDURE: Radiographs of the right tibia and fibula. HISTORY: s/p right foot surgery COMPARISON: None available. TECHNIQUE: Frontal and lateral views obtained. FINDINGS: BONES: There is diffuse bone demineralization. There is no acute fracture or bone destruction. JOINT SPACES: Unremarkable. OTHER FINDINGS: None. IMPRESSION: No acute fracture or dislocation.
[2016-12-12] MEDS: Meropenem 1g/NS 100mL IVPB 1 GM/100 ML PIGGYBACK IVPB SCH ×3 (11:02→22:15)
[2016-12-12] MEDS: Linezolid 600 mg in D5W 300 ml 600 MG/300 ML BAG IVPB SCH ×2 (11:02→22:18)
[2016-12-12 11:20] LABS: URINE APPEARANCE SL CLOUDY (CLEAR); URINE BILIRUBIN NEGATIVE (NEGATIVE); URINE BLOOD MODERATE (NEGATIVE); URINE COLOR YELLOW (YELLOW); URINE GLUCOSE (UA) 250 mg/dL (NEGATIVE); URINE KETONE NEGATIVE (NEGATIVE); URINE LEUKOCYTE ESTERASE NEGATIVE Leu/uL (NEGATIVE); URINE PROTEIN >=300 mg/dL (<30 mg/dL)
[2016-12-12 11:30] LABS: URINE BACTERIA FEW (NEG); URINE EPITHELIAL CELLS 0 - 2 /hpf (0-5); URINE RBC 0 - 2 /hpf (0-2); URINE WBC NEGATIVE /hpf (0-6)
--- NOTE | 2016-12-12 16:59 | RAD ---
PROCEDURE: Right Ankle Radiographs. HISTORY: s/p right foot surgery COMPARISON: None FINDINGS: BONES: No evidence of acute fracture or dislocation. Diffuse osteopenia is noted. JOINTS: No evidence of dislocation. Mild osteoarthritic changes. SOFT TISSUES: Soft tissue swelling seen at the right ankle. OTHER FINDINGS: None. IMPRESSION: No evidence of acute fracture or dislocation. No evidence of bony destruction.
--- NOTE | 2016-12-12 17:01 | RAD ---
PROCEDURE: Right Foot Radiographs. HISTORY: s/p R foot surgery COMPARISON: Comparison is made to the previous same-day x-ray. FINDINGS: BONES: Patient status post amputation of the 5th toe. There is suspicious for cortical erosion at the base of the proximal phalanx of the 4th lobe. JOINTS: Arthritic degenerative changes. SOFT TISSUES: Soft tissue pneumatosis and postsurgical changes are noted at the mid and distal portion of the right foot more prominent laterally. OTHER FINDINGS: None. IMPRESSION: Postsurgical changes. Status post amputation of the 5th toe. Soft tissue pneumatosis.
--- NOTE | 2016-12-12 17:17 | CON ---
DATE: 12/12/2016 ADDENDUM The patient was seen at bedside with the resident and the history taken was discussed with the reside nt. IMPRESSION: The patient is an 81-year-old diabetic, hypertensive man with dementia who presented wit h right foot gangrene. Currently, he has active cellulitis of the right foot extending up his calf a nd no palpable pulse. The case was discussed with podiatry, who agreed with the fact that the patien t had no palpable foot pulse. In view of patient's dementia and comorbidities which include systolic dysfunction, hypertension and diabetes, nephropathy, the right foot wound will be treated conservati vely with wound care and antibiotics. No angiogram or revascularization will be considered prior to improvement of the cellulitis. Vania Greer MD cc: [id number] TT: 12/12/2016 17:16:53 Confirmation # [id number] Dictation # [id number] en
--- NOTE | 2016-12-12 17:41 | CP.PCM.PN ---
Subjective - Date & Time of Evaluation Date of Evaluation: 12/12/16 Time of Evaluation: 10:45 - Subjective Subjective: Patient noted to have gas gangrene of his right foot and underwent amputation of toes and debridement by Podiatry. Currently developed fever but not in distress, no nausea, no diarrhea. Objective - Vital Signs/Intake and Output Vital Signs (last 24 hours): Temp Pulse Resp BP Pulse Ox 101.6 F H 110 H 24 186/84 H 94 L 12/12/16 07:30 12/12/16 07:30 12/12/16 07:30 12/12/16 07:30 12/12/16 07:30 Intake and Output: 12/12/16 12/12/16 06:59 18:59 Intake Total 0 Output Total 600 Balance -600 - Medications Medications: Current Medications Acetaminophen (Tylenol 325mg Tab) 650 mg PO Q6H PRN PRN Reason: Fever >100.4 F Last Admin: 12/12/16 05:32 Dose: 650 mg Clonazepam (Klonopin) 0.25 mg PO AMHS [facility] PRN Reason: Protocol Last Admin: 12/11/16 22:29 Dose: 0.25 mg Furosemide (Lasix) 40 mg PO DAILY [facility] Last Admin: 12/11/16 10:15 Dose: 40 mg Linezolid (Zyvox 600mg/300ml D5w) 600 mg in 300 mls @ 200 mls/hr IVPB Q12 [facility] PRN Reason: Protocol Stop: 12/19/16 10:01 Last Admin: 12/11/16 22:34 Dose: 200 mls/hr Meropenem 1g/NS 100mL IVPB (Meropenem 1g/Ns 100ml Ivpb) 1 gm in 100 mls @ 100 mls/hr IVPB Q12 [facility] PRN Reason: Protocol Stop: 12/12/16 09:59 Insulin Human Regular (Humulin R Med) 0 units SC ACHS [facility] PRN Reason: Protocol Last Admin: 12/12/16 08:13 Dose: 5 units Insulin Lispro Protam/Lispro Human (Humalog Mix 75/25) 40 units SC ACB [facility] Last Admin: 12/12/16 08:54 Dose: 40 units Insulin Lispro Protam/Lispro Human (Humalog Mix 75/25) 40 units SC ACD [facility] Lisinopril (Zestril) 40 mg PO DAILY [facility] Last Admin: 12/12/16 09:16 Dose: Not Given Oxycodone/Acetaminophen (Percocet 5/325 Mg Tab) 1 tab PO Q4H PRN PRN Reason: Pain, severe (8-10) Stop: 12/14/16 20:44 Tramadol/Acetaminophen (Ultracet 37.5/325 Mg) 1 tab PO Q6H PRN PRN Reason: Pain, moderate (4-7) - Labs Labs: 12/12/16 07:55 12/12/16 07:35 PT 11.9 Seconds (9.9-11.8) H 12/10/16 21:08 INR 1.10 (0.93-1.08) H 12/10/16 21:08 APTT 28.0 Seconds (23.7-30.8) 12/10/16 21:08 - Constitutional Appears: Other (febrile, not in distress) - ENT Exam ENT Exam: Mucous Membranes Moist - Neck Exam Neck Exam: absent: Meningismus - Respiratory Exam Respiratory Exam: Decreased Breath Sounds - Cardiovascular Exam Cardiovascular Exam: +S1, +S2 - GI/Abdominal Exam GI & Abdominal Exam: Soft. absent: Tenderness - Extremities Exam Additional comments: right foot with dressings in place Assessment and Plan - Assessment and Plan (Free Text) Plan: Assessment sepsis due to right leg skin and skin structure infection, severe, with necrotizing gas gangrene S/P amputation of toes and debridement POD #1 CAD chronic CHF DM HTN dementia Plan continue Zyvox and Merrem pending wound cx from the OR; blood cx are negative but will repeat since he has developed fever will continue to monitor clinically Prognosis is guarded
--- NOTE | 2016-12-12 18:07 | US ---
PROCEDURE: Lower extremity SILVERIO exam HISTORY: Peripheral vascular disease with pain and ulceration. Previous smoker. Diabetes. PHYSICIAN(S): Giovani Matute MD. FINDINGS: The resting SILVERIO's are normal: right, 0.92and left, 1.02. The brachial systolic pressures are symmetric. The low thigh pressures and waveforms are relatively normal. The calf PVR waveforms augment normally. The left calf PVR waveform is slightly decreased in amplitude compared to the right. The left waveform, however is relatively normal. This could represent subtle left SFA occlusive disease. The right ankle PVR waveform is normal. Left ankle PVR waveform is pulsatile but decreased in amplitude. This could represent left tibial occlusive disease IMPRESSION: 1. The right PVR waveforms are normal to the ankle. 2. Possible left tibial occlusive disease.
--- NOTE | 2016-12-12 20:06 | US ---
HISTORY: Leg pain and swelling. Evaluate for DVT PHYSICIAN(S): Giovani Matute MD. TECHNIQUE: Duplex sonography and color-flow Doppler with graded compression were used to evaluate the deep venous systems of both lower extremities. The exam is limited by edema. The tibial veins are not well seen. FINDINGS: The visualized deep venous systems of both lower extremities are sonographically normal and compressible. Normal wave forms and augmentation are seen. There is no sonographic evidence for deep venous thrombosis in the visualized segments of both lower extremities. IMPRESSION: No sonographic evidence for deep venous thrombosis in the visualized segments of both lower extremities. Limited study.
[2016-12-13 07:59] LABS: BILIRUBIN,TOTAL 0.8 mg/dL (0.2-1.3); CALCIUM 7.6 mg/dL (8.4-10.5); POTASSIUM 3.2 mmol/L (3.6-5.0); TOTAL PROTEIN 5.2 g/dL (5.8-8.3)
[2016-12-13 08:13] LABS: ALB/GLOB RATIO 0.7 (1.1-1.8)
[2016-12-13 08:21] LABS: HEMATOCRIT 28.8 % (42.0-52.0); MEAN CELL VOLUME 84.7 fL (80.0-105.0); MEAN CORPUSCULAR HEMOGLOBIN 28.5 pg (25.0-35.0); MEAN CORPUSCULAR HGB CONC 33.7 g/dl (31.0-37.0); MEAN PLATELET VOLUME 11.1 fl (7.0-11.0); WHITE BLOOD COUNT 12.6 10^3/ul (4.5-11.0)
[2016-12-13] MEDS: Insulin Reg-MEDIUM-Coverage SC SCH ×5 (08:28→21:19)
[2016-12-13] MEDS: Insulin Lispro (humaLOG) MIX 75/25(10 ml) SC SCH ×2 (08:28→16:38)
--- NOTE | 2016-12-13 08:30 | CP.PCM.PN ---
Subjective - Date & Time of Evaluation Date of Evaluation: 12/13/16 Time of Evaluation: 07:00 - Subjective Subjective: Vascular Surgery Note for Dr. Greer Patient seen and examined at bedside. Patient had a fever of 101 yesterday evening, managed with Tylenol. Patient is still loud and slight agitated due to baseline dementia. No reported nausea, vomiting or diarrhea from nursing staff. Objective - Vital Signs/Intake and Output Vital Signs (last 24 hours): Temp Pulse Resp BP Pulse Ox 99.3 F 77 22 155/69 H 94 L 12/13/16 07:30 12/13/16 07:30 12/13/16 07:30 12/13/16 07:30 12/13/16 07:30 Intake and Output: 12/13/16 12/13/16 06:59 18:59 Intake Total 600 Output Total 550 Balance 50 - Medications Medications: Current Medications Acetaminophen (Tylenol 325mg Tab) 650 mg PO Q6H PRN PRN Reason: Fever >100.4 F Last Admin: 12/12/16 16:46 Dose: 650 mg Amlodipine Besylate (Norvasc) 10 mg PO DAILY [facility] Last Admin: 12/12/16 11:25 Dose: 10 mg Clonazepam (Klonopin) 0.5 mg PO AMHS [facility] PRN Reason: Protocol Last Admin: 12/12/16 22:17 Dose: 0.5 mg Furosemide (Lasix) 40 mg PO DAILY [facility] Last Admin: 12/12/16 11:25 Dose: 40 mg Linezolid (Zyvox 600mg/300ml D5w) 600 mg in 300 mls @ 200 mls/hr IVPB Q12 [facility] PRN Reason: Protocol Stop: 12/19/16 10:01 Last Admin: 12/12/16 22:18 Dose: 200 mls/hr Meropenem 1g/NS 100mL IVPB (Meropenem 1g/Ns 100ml Ivpb) 1 gm in 100 mls @ 100 mls/hr IVPB Q12 [facility] PRN Reason: Protocol Stop: 12/20/16 09:20 Last Admin: 12/12/16 22:15 Dose: 100 mls/hr Insulin Human Regular (Humulin R Med) 0 units SC ACHS [facility] PRN Reason: Protocol Last Admin: 12/12/16 22:08 Dose: Not Given Insulin Lispro Protam/Lispro Human (Humalog Mix 75/25) 40 units SC ACB [facility] Last Admin: 12/12/16 08:54 Dose: 40 units Insulin Lispro Protam/Lispro Human (Humalog Mix 75/25) 40 units SC ACD [facility] Last Admin: 12/12/16 16:54 Dose: Not Given Lisinopril (Zestril) 40 mg PO DAILY [facility] Last Admin: 12/12/16 09:16 Dose: Not Given Oxycodone/Acetaminophen (Percocet 5/325 Mg Tab) 1 tab PO Q4H PRN PRN Reason: Pain, severe (8-10) Stop: 12/14/16 20:44 Tramadol/Acetaminophen (Ultracet 37.5/325 Mg) 1 tab PO Q6H PRN PRN Reason: Pain, moderate (4-7) - Labs Labs: 12/13/16 07:47 PT 11.9 Seconds (9.9-11.8) H 12/10/16 21:08 INR 1.10 (0.93-1.08) H 12/10/16 21:08 APTT 28.0 Seconds (23.7-30.8) 12/10/16 21:08 - Constitutional Appears: Non-toxic, No Acute Distress - Head Exam Head Exam: ATRAUMATIC, NORMAL INSPECTION - Eye Exam Eye Exam: EOMI, Normal appearance - ENT Exam ENT Exam: Mucous Membranes Moist - Neck Exam Neck Exam: Normal Inspection - Respiratory Exam Respiratory Exam: absent: Respiratory Distress - Cardiovascular Exam Cardiovascular Exam: +S1, +S2 - GI/Abdominal Exam GI & Abdominal Exam: Soft - Extremities Exam Extremities Exam: Pedal Edema, Tenderness Additional comments: Right foot cellulitis, no palpable PT and DP pulses Right foot has dopplerable PT signal, unable to assess DP due to wound dressing Left foot has dopplerable PT and DP Palpable popliteal and femoral pulses bilaterally Bilateral LE edema and erythema R>L Right foot dressing intact, soaked with serosanguineous fluid - Neurological Exam Neurological Exam: Alert, Awake - Psychiatric Exam Psychiatric exam: Agitated - Skin Skin Exam: Erythema, Warm Assessment and Plan - Assessment and Plan (Free Text) Assessment: 81 year old male past medical history of HTN, CHF, DM, and dementia was found to have gas gangrene of right foot. Patient is s/p right foot incision and drainage with 5th digit amputation POD#2. Vascular surgery was consulted for PAD and evaluation for BKA. Plan: Right lower extremity PAD -s/p right foot incision and drainage with 5th digit amputation secondary to gas gangrene POD #2 -Lower extremity arterial ultrasound showed right PVR waveforms are normal to the ankle, possible left tibial occlusive disease -No angiogram or revascularization will be considered prior to improvement of the cellulitis -Medical management per primary team -D/w attending Dr. Greer
--- NOTE | 2016-12-13 09:59 | PN ---
DATE: 12/13/2016 DATE: 12/13/2016 SUBJECTIVE: The patient has no complaints of any chest pain, no shortness of breath, no headaches or dizziness. PHYSICAL EXAMINATION: VITAL SIGNS: Temperature is 99.3, pulse of 77. Blood pressure is 155/69, respirations 22. GENERAL: The patient is comfortable, in no acute distress. HEENT: Anicteric sclerae. Moist mucosa. NECK: No JVD or adenopathy. CARDIAC: S1/S2. No murmurs. No rubs. Regular. RESPIRATORY: Clear to auscultation bilaterally. No wheezes, rales, or rhonchi. Good air entry. ABDOMEN: Bowel sounds are positive, soft, nontender, and nondistended. EXTREMITIES: No edema. Has 1+ pulses. LABORATORY DATA: White count of 12.6, hemoglobin 9.7. Potassium is 3.2. ASSESSMENT: 1. Right fifth toe gangrene, status post incision and drainage and amputation of the fifth toe, post op day #1. 2. Sepsis. 3. Fever. 4. Hypertension. 5. Diabetes type 2. 6. Dementia, Alzheimer's type. PLAN: The patient is comfortable. He is being followed by Dr. Greer from vascular. The patient has no palpable pulse. The patient is on insulin. He is going to continue with Klonopin. He is on Lasi x. He is on Norvasc for hypertension. The patient is on lisinopril for hypertension as well. He trivedi s cultures that are ordered and show no growth. He is being followed by podiatry and by ID. We will continue to follow the patient closely. Bruno Garcia MD cc: [id number] TT: 12/13/2016 09:58:23 Confirmation # [id number] Dictation # [id number]
[2016-12-13] MEDS: Linezolid 600 mg in D5W 300 ml 600 MG/300 ML BAG IVPB SCH ×2 (10:43→22:17)
[2016-12-13] MEDS: Meropenem 1g/NS 100mL IVPB 1 GM/100 ML PIGGYBACK IVPB SCH ×2 (10:43→21:22)
[2016-12-13] MEDS ORDERED: Potassium Chloride 20 mEq ER Tab PO ONE (15:26)
--- NOTE | 2016-12-13 16:49 | PN ---
DATE: 12/13/2016 An 81-year-old male seen at bedside for continued evaluation and management of necrotizing fasciitis of his right foot, which required extensive and complex incision and drainage procedure with amputati on of the fifth digit. The patient's foot is now showing rapidly ischemic changes to the second and third digits as well. The patient was afebrile today. LABORATORY FINDINGS: Reveal a white count of 12.6, hemoglobin of 9.7, hematocrit of 28.8, platelet c ount of 253. VITAL SIGNS: Reveal a temperature of 99.7, pulse rate of 77, blood pressure 155/69, respiratory rate of 22. Microbiology report reveals gram-positive cocci in chains and gram-negative rods with sensitivities t o follow. OBJECTIVE: Posterior tibial and dorsalis pedis pulses are nonpalpable. However, vascular testing do es reveal adequate blood flow to the ankle. The patient is unable to detect 5.07 gram monofilament w geronimo testing bilaterally. Dorsal right foot presents with absent right fifth digit and a gangrenous u lceration on the lateral aspect of the foot, which encompasses the third and fourth metatarsal region s as well as the second and third metatarsal regions. The fourth digit is increasingly gangrenous an d the now second and third toes are showing purple discoloration indicative of impending ischemia and gangrene. There is noted to be malodor and active serosanguineous drainage. There is no active pur ulence noted. The entire forefoot is erythematous, which continues to the rear foot. There is expos ed fifth metatarsal bone visible through the incision site. The base of the entire ulceration is morgan denver necrotic and gangrenous. ASSESSMENT: Status post day #2, complex incision and drainage of right foot with fifth digit amputat ion secondary to necrotizing fasciitis. PLAN: The patient's wound was evaluated. The patient was examined and the wounds were flushed with a mixture of Betadine and saline solution along with a simple saline solution. Some loose packing wa s applied to the foot and a dry sterile dressing was administered. We will continue with IV antibiot ics as per infectious disease. I spoke with Dr. Giovani Matute at length discussing case and he feels t hat there is adequate flow to the metatarsal region to at least attempt a transmetatarsal amputation before below-knee amputation should be attempted. The patient's daughter Rissa was called and I spoke with her at length discussing our options and she was adamant about trying a transmetatarsal am putation before a more proximal amputation was performed. I explained that given his many comorbidit ies, he may go on to require a below-knee amputation, but we will all do our best in an effort to fortino e his foot. The patient's daughter was told that he will have to be discharged to a subacute [facility] where his wounds will be attended to for several months. She was told that if the wound does not p rogress in the positive direction and starts to turn gangrenous, then a below-knee amputation will be warranted. The OR was called. The patient is scheduled for surgery at 9:30 a.m. on . We w ill keep him n.p.o. Monday night. We will continue to cleanse the wound daily until surgery. Alan King DPM cc: [id number] TT: 12/13/2016 16:48:33 Confirmation # [id number] Dictation # [id number] sn
--- NOTE | 2016-12-13 19:08 | CON ---
DATE: 12/13/2016 TIME: 3:54 p.m. CHIEF COMPLAINT AND HISTORY OF PRESENT ILLNESS: This is an 81-year-old man who is demented and uncooperative who presented with a severe diabetic foot infection and gas gangrene. He underwent emergency drainage by Dr. King 2 days ago. His foot has significant residual wound with associated gangrene. There are severe stasis changes present in the lower extremities, greater on the right than the left. PAST MEDICAL HISTORY: Includes CHF, hypertension, diabetes and dementia. His right femoral and popliteal pulses are palpable. His SILVERIO/PVR exam demonstrates a normal exam to the right ankle. The metatarsal waveforms are blunted. The patient certainly has some small vessel disease related to his diabetes. Unfortunately, the extent of his infection and gangrene may prohibit a foot sparing procedure. At this time, I do not think an angiogram and revascularization is necessary. The case was discussed with Dr. King and Dr. Caceres. Giovani Matute MD cc: [id number] TT: 12/13/2016 19:07:30 Confirmation # [id number] Dictation # [id number] sangeetha MURGUIA
--- NOTE | 2016-12-13 19:53 | CP.PCM.PN ---
Subjective - Date & Time of Evaluation Date of Evaluation: 12/13/16 Time of Evaluation: 11:20 - Subjective Subjective: Comfortable, not in distress, less pain in the foot, no fevers this morning. Objective - Vital Signs/Intake and Output Vital Signs (last 24 hours): Temp Pulse Resp BP Pulse Ox 97.9 F 80 22 132/65 96 12/13/16 16:00 12/13/16 16:00 12/13/16 16:00 12/13/16 16:00 12/13/16 16:00 Intake and Output: 12/13/16 12/14/16 18:59 06:59 Intake Total 240 Output Total 200 Balance 40 - Medications Medications: Current Medications Acetaminophen (Tylenol 325mg Tab) 650 mg PO Q6H PRN PRN Reason: Fever >100.4 F Last Admin: 12/12/16 16:46 Dose: 650 mg Amlodipine Besylate (Norvasc) 10 mg PO DAILY [facility] Last Admin: 12/13/16 10:42 Dose: 10 mg Clonazepam (Klonopin) 0.5 mg PO AMHS [facility] PRN Reason: Protocol Last Admin: 12/13/16 10:42 Dose: 0.5 mg Furosemide (Lasix) 40 mg PO DAILY [facility] Last Admin: 12/13/16 10:41 Dose: 40 mg Linezolid (Zyvox 600mg/300ml D5w) 600 mg in 300 mls @ 200 mls/hr IVPB Q12 [facility] PRN Reason: Protocol Stop: 12/19/16 10:01 Last Admin: 12/13/16 10:43 Dose: 200 mls/hr Meropenem 1g/NS 100mL IVPB (Meropenem 1g/Ns 100ml Ivpb) 1 gm in 100 mls @ 100 mls/hr IVPB Q12 [facility] PRN Reason: Protocol Stop: 12/20/16 09:20 Last Admin: 12/13/16 10:43 Dose: 100 mls/hr Insulin Human Regular (Humulin R Med) 0 units SC ACHS [facility] PRN Reason: Protocol Last Admin: 12/13/16 16:38 Dose: 1 units Insulin Lispro Protam/Lispro Human (Humalog Mix 75/25) 40 units SC ACB [facility] Last Admin: 12/13/16 08:28 Dose: 40 units Insulin Lispro Protam/Lispro Human (Humalog Mix 75/25) 40 units SC ACD [facility] Last Admin: 12/13/16 16:38 Dose: 40 unit Lisinopril (Zestril) 40 mg PO DAILY [facility] Last Admin: 12/13/16 10:42 Dose: 40 mg Oxycodone/Acetaminophen (Percocet 5/325 Mg Tab) 1 tab PO Q4H PRN PRN Reason: Pain, severe (8-10) Stop: 12/14/16 20:44 Tramadol/Acetaminophen (Ultracet 37.5/325 Mg) 1 tab PO Q6H PRN PRN Reason: Pain, moderate (4-7) - Labs Labs: 12/13/16 07:47 12/13/16 07:47 PT 11.9 Seconds (9.9-11.8) H 12/10/16 21:08 INR 1.10 (0.93-1.08) H 12/10/16 21:08 APTT 28.0 Seconds (23.7-30.8) 12/10/16 21:08 - Constitutional Appears: Non-toxic, No Acute Distress - Head Exam Head Exam: NORMAL INSPECTION - Neck Exam Neck Exam: absent: Meningismus - Respiratory Exam Respiratory Exam: Decreased Breath Sounds - Cardiovascular Exam Cardiovascular Exam: +S1, +S2 - GI/Abdominal Exam GI & Abdominal Exam: Soft. absent: Tenderness - Extremities Exam Additional comments: right foot with dressings in place Assessment and Plan - Assessment and Plan (Free Text) Plan: Assessment sepsis due to right leg skin and skin structure infection, severe, with necrotizing gas gangrene S/P amputation of toes and debridement POD #2 CAD chronic CHF DM HTN dementia Plan continue Zyvox and Merremfinal day 2 pending wound cx from the OR; blood cx are negative will continue to monitor clinically Prognosis is guarded
[2016-12-14 07:39] LABS: HEMATOCRIT 29.8 % (42.0-52.0); MEAN CELL VOLUME 84.7 fL (80.0-105.0); MEAN CORPUSCULAR HEMOGLOBIN 28.7 pg (25.0-35.0); MEAN CORPUSCULAR HGB CONC 33.9 g/dl (31.0-37.0); MEAN PLATELET VOLUME 10.7 fl (7.0-11.0); RED CELL DISTRIBUTION WIDTH 13.1 % (11.5-14.5); WHITE BLOOD COUNT 11.2 10^3/ul (4.5-11.0)
[2016-12-14 08:23] LABS: ALB/GLOB RATIO 0.6 (1.1-1.8); BILIRUBIN,TOTAL 0.7 mg/dL (0.2-1.3); CALCIUM 7.5 mg/dL (8.4-10.5); POTASSIUM 3.9 mmol/L (3.6-5.0); TOTAL PROTEIN 5.4 g/dL (5.8-8.3)
--- NOTE | 2016-12-14 09:01 | CP.PCM.PN ---
Subjective - Date & Time of Evaluation Date of Evaluation: 12/14/16 Time of Evaluation: 08:56 - Subjective Subjective: 81 y/o male seen at bedside with Dr. Caceres 3 days s/p emergency I&D with 5th digit amputation of right foot from gas gangrene. Patient denies any acute events overnight. Dressing remains clean,intact with no strikethrough on bandage. Patient denies any n/f/v/d/c/sob. Objective - Vital Signs/Intake and Output Vital Signs (last 24 hours): Temp Pulse Resp BP Pulse Ox 98.8 F 92 H 18 149/79 97 12/14/16 07:30 12/14/16 07:30 12/14/16 07:30 12/14/16 07:30 12/14/16 07:30 Intake and Output: 12/14/16 12/14/16 06:59 18:59 Intake Total 700 Output Total 1150 Balance -450 - Medications Medications: Current Medications Acetaminophen (Tylenol 325mg Tab) 650 mg PO Q6H PRN PRN Reason: Fever >100.4 F Last Admin: 12/12/16 16:46 Dose: 650 mg Amlodipine Besylate (Norvasc) 10 mg PO DAILY [facility] Last Admin: 12/13/16 10:42 Dose: 10 mg Clonazepam (Klonopin) 0.5 mg PO AMHS [facility] PRN Reason: Protocol Last Admin: 12/13/16 21:22 Dose: 0.5 mg Furosemide (Lasix) 40 mg PO DAILY [facility] Last Admin: 12/13/16 10:41 Dose: 40 mg Linezolid (Zyvox 600mg/300ml D5w) 600 mg in 300 mls @ 200 mls/hr IVPB Q12 [facility] PRN Reason: Protocol Stop: 12/19/16 10:01 Last Admin: 12/13/16 22:17 Dose: 200 mls/hr Meropenem 1g/NS 100mL IVPB (Meropenem 1g/Ns 100ml Ivpb) 1 gm in 100 mls @ 100 mls/hr IVPB Q12 [facility] PRN Reason: Protocol Stop: 12/20/16 09:20 Last Admin: 12/13/16 21:22 Dose: 100 mls/hr Insulin Human Regular (Humulin R Med) 0 units SC ACHS [facility] PRN Reason: Protocol Last Admin: 12/13/16 21:19 Dose: Not Given Insulin Lispro Protam/Lispro Human (Humalog Mix 75/25) 40 units SC ACB [facility] Last Admin: 12/13/16 08:28 Dose: 40 units Insulin Lispro Protam/Lispro Human (Humalog Mix 75/25) 40 units SC ACD [facility] Last Admin: 12/13/16 16:38 Dose: 40 unit Lisinopril (Zestril) 40 mg PO DAILY [facility] Last Admin: 12/13/16 10:42 Dose: 40 mg Oxycodone/Acetaminophen (Percocet 5/325 Mg Tab) 1 tab PO Q4H PRN PRN Reason: Pain, severe (8-10) Stop: 12/14/16 20:44 Tramadol/Acetaminophen (Ultracet 37.5/325 Mg) 1 tab PO Q6H PRN PRN Reason: Pain, moderate (4-7) - Labs Labs: 12/14/16 07:20 12/14/16 07:20 PT 11.9 Seconds (9.9-11.8) H 12/10/16 21:08 INR 1.10 (0.93-1.08) H 12/10/16 21:08 APTT 28.0 Seconds (23.7-30.8) 12/10/16 21:08 - Constitutional Appears: Well, Non-toxic, No Acute Distress - Extremities Exam Additional comments: VASC:DP and PT pulses dopplerable. CFT is greatly delayed due to decreased lower extremity perfusion and abscess formation. Skin temperature increased on the right LE. Pitting edema noted to RLE. NEURO: unable to assess DERM:Erythema noted to right lower extremity from the midcalf area to the digits distally. 2 surgical incision sites left open, one along the 4th metatarsal and one along third metatarsal- wound tracks up proximally to rearfoot, exposed tendon and bone noted on dorsum of foot, mild malodor, no active drainage, no purulence, 2nd and 3rd digts dusky and gangrenous ORTHO: Pain on palpation to right LE. - Neurological Exam Neurological Exam: Alert, Awake, Oriented x3 - Psychiatric Exam Psychiatric exam: Normal Affect, Normal Mood Assessment and Plan - Assessment and Plan (Free Text) Assessment: 81 y/o male seen at bedside 3 days s/p right foot incision and drainage with 5th digit amputation secondary to gas gangrene Plan: patient evaluated and chart reviewed seen at bedside with attending Dr. Caceres labs and vitals reviewed; WBC 11.2, afebrile continue IV abx as per ID- Zyvox and Meropenem removed packing, applied wet to dry betadine/saline soaked gauze, ABD, kerlix, ANTHONY to right foot patient to go to OR for right foot TMA tomorrow morning with Dr. King spoke with patient's daughter yesterday and explained the risks, benefits, complications of surgical procedure will call patient's daughter tomorrow morning to obtain verbal consent patient to be NPO past midnight tonight podiatry will continue to follow
[2016-12-14] MEDS: Insulin Lispro (humaLOG) MIX 75/25(10 ml) SC SCH ×2 (09:42→19:12)
[2016-12-14] MEDS: Insulin Reg-MEDIUM-Coverage SC SCH ×4 (09:43→21:38)
[2016-12-14] MEDS: Meropenem 1g/NS 100mL IVPB 1 GM/100 ML PIGGYBACK IVPB SCH ×2 (09:44→21:43)
--- NOTE | 2016-12-14 09:51 | PN ---
DATE: 12/14/2016 SUBJECTIVE: The patient has no complaints of any chest pain or shortness of breath, no headaches or dizziness. PHYSICAL EXAMINATION: VITAL SIGNS: Temperature is 98.8, pulse of 92, blood pressure is 149/79, respirations 18. GENERAL: The patient is comfortable, in no acute distress. HEENT: Anicteric sclerae. Moist mucosa. NECK: No JVD or adenopathy. CARDIAC: S1/S2. No murmurs. No rubs. Regular. RESPIRATORY: Clear to auscultation bilaterally. No wheezes, rales, or rhonchi. Good air entry. ABDOMEN: Bowel sounds are positive, soft, nontender, and nondistended. EXTREMITIES: No edema. Has 1+ pulses. ASSESSMENT: 1. Right fifth toe gangrene, status post incision and drainage, postoperative day #2. 2. Sepsis. 3. Fever. 4. Hypertension. 5. Diabetes type 2. 6. Dementia, Alzheimer's type. 7. Acute kidney injury. PLAN: The patient is currently comfortable. Blood cultures have been negative. Wound cultures are positive for staph. The patient is on insulin for his diabetes. He is on Klonopin. He is going to continue with Lasix. He is on amlodipine for his hypertension. He is on Percocet for pain. This wi ll be continued. He is on lisinopril for hypertension. Bruno Garcia MD cc: [id number] TT: 12/14/2016 09:51:07 Confirmation # [id number] Dictation # [id number] tn
[2016-12-14] MEDS: Linezolid 600 mg in D5W 300 ml 600 MG/300 ML BAG IVPB SCH ×2 (11:33→22:29)
--- NOTE | 2016-12-14 17:39 | CP.PCM.PN ---
Subjective - Date & Time of Evaluation Date of Evaluation: 12/14/16 Time of Evaluation: 11:20 - Subjective Subjective: Comfortable, not in distress, afebrile, denies pain in the foot. There is plan for transmetatarsal amputation. Objective - Vital Signs/Intake and Output Vital Signs (last 24 hours): Temp Pulse Resp BP Pulse Ox 98.8 F 92 H 18 149/79 97 12/14/16 07:30 12/14/16 07:30 12/14/16 07:30 12/14/16 07:30 12/14/16 07:30 Intake and Output: 12/14/16 12/14/16 06:59 18:59 Intake Total 700 Output Total 1150 Balance -450 - Medications Medications: Current Medications Acetaminophen (Tylenol 325mg Tab) 650 mg PO Q6H PRN PRN Reason: Fever >100.4 F Last Admin: 12/12/16 16:46 Dose: 650 mg Amlodipine Besylate (Norvasc) 10 mg PO DAILY [facility] Last Admin: 12/13/16 10:42 Dose: 10 mg Clonazepam (Klonopin) 0.5 mg PO AMHS [facility] PRN Reason: Protocol Last Admin: 12/13/16 21:22 Dose: 0.5 mg Furosemide (Lasix) 40 mg PO DAILY [facility] Last Admin: 12/13/16 10:41 Dose: 40 mg Linezolid (Zyvox 600mg/300ml D5w) 600 mg in 300 mls @ 200 mls/hr IVPB Q12 [facility] PRN Reason: Protocol Stop: 12/19/16 10:01 Last Admin: 12/13/16 22:17 Dose: 200 mls/hr Meropenem 1g/NS 100mL IVPB (Meropenem 1g/Ns 100ml Ivpb) 1 gm in 100 mls @ 100 mls/hr IVPB Q12 [facility] PRN Reason: Protocol Stop: 12/20/16 09:20 Last Admin: 12/13/16 21:22 Dose: 100 mls/hr Insulin Human Regular (Humulin R Med) 0 units SC ACHS [facility] PRN Reason: Protocol Last Admin: 12/13/16 21:19 Dose: Not Given Insulin Lispro Protam/Lispro Human (Humalog Mix 75/25) 40 units SC ACB [facility] Last Admin: 12/13/16 08:28 Dose: 40 units Insulin Lispro Protam/Lispro Human (Humalog Mix 75/25) 40 units SC ACD [facility] Last Admin: 12/13/16 16:38 Dose: 40 unit Lisinopril (Zestril) 40 mg PO DAILY [facility] Last Admin: 12/13/16 10:42 Dose: 40 mg Oxycodone/Acetaminophen (Percocet 5/325 Mg Tab) 1 tab PO Q4H PRN PRN Reason: Pain, severe (8-10) Stop: 12/14/16 20:44 Tramadol/Acetaminophen (Ultracet 37.5/325 Mg) 1 tab PO Q6H PRN PRN Reason: Pain, moderate (4-7) - Labs Labs: 12/14/16 07:20 12/14/16 07:20 PT 11.9 Seconds (9.9-11.8) H 12/10/16 21:08 INR 1.10 (0.93-1.08) H 12/10/16 21:08 APTT 28.0 Seconds (23.7-30.8) 12/10/16 21:08 - Constitutional Appears: Non-toxic, No Acute Distress - Head Exam Head Exam: NORMAL INSPECTION - ENT Exam ENT Exam: Mucous Membranes Moist - Neck Exam Neck Exam: absent: Meningismus - Respiratory Exam Respiratory Exam: Decreased Breath Sounds - Cardiovascular Exam Cardiovascular Exam: +S1, +S2 - GI/Abdominal Exam GI & Abdominal Exam: Soft. absent: Tenderness - Extremities Exam Additional comments: right foot with dressings in place Assessment and Plan - Assessment and Plan (Free Text) Plan: Assessment sepsis due to right leg skin and skin structure infection, severe, with necrotizing gas gangrene S/P amputation of toes and debridement POD #3; growing MRSA and gram negative bacilli CAD chronic CHF DM HTN dementia Plan continue Zyvox and Merrem day 2 pending final wound cx results; blood cx are negative; there is plan for transmetatarsal amputation will continue to monitor clinically Prognosis is guarded
[2016-12-14] MEDS: Dextrose 5%/0.45% NS 1,000 ML IV SCH (21:44)
[2016-12-15] MEDS: Insulin Reg-MEDIUM-Coverage SC SCH ×4 (08:30→22:00)
[2016-12-15] MEDS: Insulin Lispro (humaLOG) MIX 75/25(10 ml) SC SCH ×2 (08:30→17:36)
[2016-12-15] MEDS: Meropenem 1g/NS 100mL IVPB 1 GM/100 ML PIGGYBACK IVPB SCH ×2 (09:00→21:15)
[2016-12-15] MEDS ORDERED: Lidocaine 2% Inj (20ml) ONE (09:10)
[2016-12-15] MEDS ORDERED: Bupivacaine 0.5% Inj(30mL) ONE (09:11)
[2016-12-15] MEDS ORDERED: Propofol 10 mg/ml Inj (20 ML) ONE (09:31)
--- NOTE | 2016-12-15 11:19 | PN ---
DATE: 12/15/2016 DATE: 12/15/2016 SUBJECTIVE: The patient has no complaints of any chest pain, no shortness of breath. He is going to the OR today for surgery. PHYSICAL EXAMINATION: VITAL SIGNS: Temperature is 97.9, pulse of 81. Blood pressure 159/68, respirations 18. GENERAL: The patient is comfortable, in no acute distress. HEENT: Anicteric sclerae. Moist mucosa. NECK: No JVD or adenopathy. CARDIAC: S1/S2. No murmurs. No rubs. Regular. RESPIRATORY: Clear to auscultation bilaterally. No wheezes, rales, or rhonchi. Good air entry. ABDOMEN: Bowel sounds are positive, soft, nontender, and nondistended. EXTREMITIES: No edema. Has 1+ pulses. LABORATORY DATA: White count of 11.2, hemoglobin 10.1. Creatinine is 1.8. ASSESSMENT: 1. Right fifth toe gangrene, status post incision and drainage. 2. Sepsis. 3. Fever. 4. Hypertension. 5. Dementia, Alzheimer's type. 6. Acute kidney injury. PLAN: The patient is on lisinopril for hypertension. He is on amlodipine as well. The patient is g oing to be on Lasix daily. He is on his insulin. He is going to continue with D5 half normal saline . The patient will most likely need rehab after his procedure. He is going for a right foot TMA. Bruno Garcia MD cc: [id number] TT: 12/15/2016 11:19:06 Confirmation # [id number] Dictation # [id number]
--- NOTE | 2016-12-15 11:22 | PCM.SURG1 ---
<Amie Hope - Last Filed: 12/15/16 11:20> Surgeon's Initial Post Op Note - Surgeon's Notes Surgeon: Dr. King Rotary Drill Rig Operator: Dr. Hope PGY-1. Dr Everett, PGY-1 Type of Anesthesia: IV Sedation, Local Anesthesia Administered By: Dr. Ivy Pre-Operative Diagnosis: right foot gas gangrene Operative Findings: see dictation Post-Operative Diagnosis: same Operation Performed: right foot transmetatarsal amputation Specimen/Specimens Removed: bone and soft tissue Estimated Blood Loss: EBL {In ML}: 20 Blood Products Given: N/A Drains Used: No Drains Post-Op Condition: Good Date of Surgery/Procedure: 12/15/16 Time of Surgery/Procedure: 10:00 <Alan King - Last Filed: 12/15/16 11:25> Attending/Attestation - Attestation I have personally seen and examined this patient.: Yes I have fully participated in the care of the patient.: Yes I have reviewed all pertinent clinical information: Yes
[2016-12-15] MEDS ORDERED: Oxycodone/Acetaminophen 5/325 mg Tab PO PRN (11:23)
[2016-12-15] MEDS ORDERED: HYDROmorphone 0.5 mg/0.5 ml ISec IVP PRN (11:29)
[2016-12-15] MEDS ORDERED: Lactated Ringer's 1,000 ML IV SCH (11:29)
--- NOTE | 2016-12-15 12:15 | OP ---
PROCEDURE DATE: 12/15/2016 INDICATIONS: An 81-year-old male who previously underwent emergent incision and drainage and amputat ion of his right fifth digit secondary to necrotizing fasciitis who is being operated on today for a transmetatarsal amputation as the remaining digits on his right foot have become gangrenous, foul sme lling and nonviable. Consent was given via telephone by his daughter, Rissa. I spoke with the d camachoer Rissa, at great length, telling her that, if the surgery is not successful, he will go o n to require a below-knee amputation. She states that she understands and wants to have the transmet atarsal amputation attempted first before any more proximal surgery is attempted. PROCEDURE IN DETAIL: The patient was brought into the operating room in his hospital bed and transfe rred to the operating room table in a supine position. Following a period of IV sedation, the patien t's foot was anesthetized in a right ankle block fashion utilizing approximately 20 mL of a 1:1 ratio of Marcaine plain and 2% lidocaine plain. The foot was scrubbed, prepped and draped in the usual as eptic fashion. It should be noted at this time that the second, third and fourth toes are gangrenous and nonviable and there are ischemic changes noted on the right first toe. There is a large gangren ous ulceration that encompasses the entire forefoot that is foul smelling, but with no purulence. Ut ilizing a #10-blade, an incision was made dorsally from medial to lateral and approached plantarly ex tending distally to the metatarsophalangeal joints and then wrapped around to attach to the dorsal in itial incision. Care was taken to retract all vital neural and vascular structures. It should be no anderson that there was some bleeding at this time. The incisions were all deepened down to bone. All te ndons were resected. The metatarsophalangeal joints were all dissected free of their attachments and the entire forefoot was removed in toto from the operative field. It should be noted that the plant ar flap now contained a large amount of necrotic nonviable tissue which was meticulously dissected fr morris. The dorsal aspect of the foot was inspected and there was found to be no necrotic tissue; manish r, all the extensor tendons were resected and removed from the operative site. Next, utilizing an os cillating bone saw, the first, second, third and fourth metatarsals were resected and dissected free of their attachments and removed from the operative field. There was noted to be moderate amount of bleeding at this time and the wound was flushed with 1000 mL of a bacitracin-infused saline solution. Culture was taken and submitted for sensitivities. It was noted that redundant tissue was removed after approximation from the plantar flap to the dorsal incision site. Utilizing 3-0 Vicryl in a sub cuticular fashion, the flap was attached to the dorsal aspect of the foot and utilizing a combination of 3-0 nylon and meg in a simple suture and horizontal mattress suture technique, the wound was closed. Prior to closure, a Marlin drain was applied and sutured down to evacuate any possible amina colt formation. The wound was then cleansed with normal sterile saline and Betadine-soaked Adaptic, sterile 4 x 4, sterile abdominal pads and sterile Kerlix with a light Law wrap were applied. The pat ient was transferred from the operating room to the recovery room with all vital signs stable. After a period of postoperative monitoring, the patient will be discharged back to his room on the [address] [place] [id number], bed 1. Appropriate x-rays were ordered. We will keep him off weightbearing with no bathro om privileges until further notice. The patient will be seen and followed in the a.m. The patient's daughter was called and she was told that the surgery went well and we will keep our fingers crossed as to whether the flap will take. All her questions were answered and the patient will be seen valerie parham Alan King DPM cc: [facility] TT: 12/15/2016 12:14:41 magalie
[2016-12-15] MEDS: Linezolid 600 mg in D5W 300 ml 600 MG/300 ML BAG IVPB SCH (12:59)
--- NOTE | 2016-12-15 13:41 | RAD ---
PROCEDURE: Right Foot Radiographs. HISTORY: s/p right foot surgery COMPARISON: 12/11/2016 FINDINGS: BONES: Status post amputation partial amputation of the foot. Bone alignment and mineralization are normal. JOINTS: Normal. SOFT TISSUES: There are postsurgical changes in the periarticular soft tissues and skin meg in the stump. OTHER FINDINGS: None. IMPRESSION: Status post partial amputation of the foot.
--- NOTE | 2016-12-15 19:09 | PN ---
DATE: 12/15/2016 The patient is in bed in no acute distress. The patient was seen in 571, bed 1. PHYSICAL EXAMINATION: VITAL SIGNS: Temperature is 98, blood pressure is 140/60, respiratory rate of 20, heart rate of 94. HEENT: Unremarkable. NECK: Supple. LUNGS: Have decreased breath sounds. HEART: Normal S1, S2. ABDOMEN: Soft, nontender. LABORATORY DATA: Reveals the patient's white count to be 11,200, hemoglobin of 10. Chemistries reve al creatinine is 1.8. Blood cultures are negative. ASSESSMENT AND PLAN: This is an 81-year-old with sepsis with a right leg skin and skin structure inf ection, necrotizing gas gangrene, status post amputation of toes and debridement, post-operative proc edure day #4, growing methicillin-resistant Staphylococcus aureus and gram-negative gayle in a patient with coronary artery disease, congestive heart failure, currently on day #3 of Zyvox and meropenem. The cultures were identified as methicillin-resistant Staphylococcus aureus and gram-negative Proteus mirabilis and Klebsiella, methicillin-resistant Staphylococcus aureus to vancomycin, DIANA 0.5 and pro teus mirabilis pansensitive, Klebsiella is pansensitive. In the blood, patient does have corynebacte rium. On Zyvox and meropenem. We will follow closely with you. Pathology report has acute osteomye litis involving the resection end. Will need prolonged antibiotics, 4-6 weeks, with a CBC, SMA-18, s ed rate, C-reactive protein and chemistries and CBC once weekly. We will order a sed rate and C-reac tive protein today. We will check on the final cultures prior to changing antibiotics. Repeat blood cultures are negative. Because of the patient's creatinine of 1.8 and renal insufficiency, unable t o use vancomycin. Dr. Alan King's note from today is noted and reviewed for a transmetatarsal a mputation. Will check on the pathology report from today's procedure and make further recommendation s regarding duration of therapy based on pathology report, right foot transmetatarsal amputation. To day's OR cultures pending. Simón Dickerson MD cc: [id number] TT: 12/15/2016 19:08:28 Confirmation # [id number] Dictation # [id number] rn
[2016-12-15] MEDS: Dextrose 5%/0.45% NS 1,000 ML IV SCH (21:19)
[2016-12-16] MEDS: Linezolid 600 mg in D5W 300 ml 600 MG/300 ML BAG IVPB SCH ×3 (00:35→22:49)
[2016-12-16] MEDS: Insulin Reg-MEDIUM-Coverage SC SCH ×4 (08:11→22:47)
[2016-12-16] MEDS: Insulin Lispro (humaLOG) MIX 75/25(10 ml) SC SCH ×2 (08:14→16:35)
[2016-12-16] MEDS: Oxycodone/Acetaminophen 5/325 mg Tab PO PRN (09:34)
[2016-12-16] MEDS: Meropenem 1g/NS 100mL IVPB 1 GM/100 ML PIGGYBACK IVPB SCH ×2 (09:35→23:51)
--- NOTE | 2016-12-16 10:12 | PN ---
DATE: 12/16/2016 The patient is in bed, in no acute distress, nontoxic. PHYSICAL EXAMINATION: VITAL SIGNS: Temperature is 98, blood pressure is 150/60, respiratory rate of 16. HEENT: Unremarkable. NECK: Supple. LUNGS: Decreased breath sounds. HEART: Normal S1, S2. ABDOMEN: Soft, nontender. LABORATORY DATA: Reveals the patient has MRSA and proteus and klebsiella in a wound culture. The MR SA sensitivity is noted. Proteus is pansensitive and klebsiella is pansensitive. The patient did trivedi ve corynebacterium in 1 blood culture, and repeat blood cultures are negative. The cultures from yes terday are pending, submitted by Dr. King. The patient was taken to the OR yesterday and had a transmetatarsal amputation of the right foot. Re view of the orders reveals the patient to be on meropenem and Zyvox. ASSESSMENT AND PLAN: An 81-year-old male seen earlier this morning in room 571, bed 1, with a right skin and skin structure infection, necrotizing gangrene, status post amputation toe and debridement. The patient was taken to the OR yesterday. Today is postprocedure day #1. Awaiting for pathology a nd OR cultures. Will make a decision on the antibiotics and duration of the antibiotics based on OR cultures and OR pathology report. Simón Dickerson MD cc: 350 TT: 12/16/2016 10:08:13 Confirmation # [id number] Dictation # [id number] mn
[2016-12-16 19:02] LABS: ADD MANUAL DIFF? YES; MEAN CELL VOLUME 85.1 fL (80.0-105.0); MEAN CORPUSCULAR HEMOGLOBIN 28.3 pg (25.0-35.0); MEAN CORPUSCULAR HGB CONC 33.2 g/dl (31.0-37.0); MEAN PLATELET VOLUME 9.9 fl (7.0-11.0); PLATELET COUNT 318 10^3/uL (120.0-450.0); WHITE BLOOD COUNT 11.5 10^3/ul (4.5-11.0)
[2016-12-16 20:17] LABS: BAND 4 % (0-2); NEUTROPHIL 85 % (50.0-70.0)
[2016-12-16 20:18] LABS: PLATELET ESTIMATE NORMAL (NORMAL)
[2016-12-17] MEDS: Oxycodone/Acetaminophen 5/325 mg Tab PO PRN (00:39)
[2016-12-17] MEDS: Insulin Lispro (humaLOG) MIX 75/25(10 ml) SC SCH ×3 (08:07→17:36)
[2016-12-17] MEDS: Insulin Reg-MEDIUM-Coverage SC SCH ×4 (08:08→21:26)
[2016-12-17] MEDS: Meropenem 1g/NS 100mL IVPB 1 GM/100 ML PIGGYBACK IVPB SCH ×2 (09:40→21:26)
--- NOTE | 2016-12-17 09:42 | PN ---
DATE: 12/17/2016 An 81-year-old male seen at bedside, postoperative day #2, right transmetatarsal amputation. The [facility] staff informed me that the ZO drain was mcfp full and was removed yesterday and then reapplie d today. The patient is reporting much less pain and has been afebrile. VITAL SIGNS: Temperature 98.6, pulse rate of 81, blood pressure 148/67, respiratory rate of 22. LABORATORY DATA: Reveal a white count of 11.5, hemoglobin 9.3, hematocrit 28, platelet count 318 and an ESR of 77. Microbiology report taken in the OR reveals no growth. Wound culture reveals no grow th preliminarily. OBJECTIVE: The incision site on the right transmetatarsal amputation presents well coapted. All sut ures intact. All meg intact. There is noted to be some ischemic, dusky changes occurring on the lateral aspect of the incision site. There is no drainage emanating from the incision site. The ar ea continues to decrease in erythema and edema. The ZO drain that is present shows scant drainage at this point. No signs of ascending cellulitis. ASSESSMENT: Status post day #2 right transmetatarsal amputation with no complications noted. PLAN: Wound was cleansed with normal sterile saline. Betadine-soaked Adaptic was applied to the inc ision sites. There was manual gentle compression on the incision site and there was noted to be mini mal drainage that flowed into the Nishant-Steele drain. The wound was then dressed with sterile 4 x 4 , and Law wraps. We will keep patient off weightbearing until further notice. The patient will cont inue with IV antibiotics as per infectious disease. The patient will be seen and followed daily, and the Nishant-Steele drain will be pulled on Monday if there is minimal drainage noted. Aaln King DPM cc: [id number] TT: 12/17/2016 09:41:28 Confirmation # [id number] Dictation # [id number] herb
[2016-12-17 10:27] LABS: ADD MANUAL DIFF? NO
[2016-12-17 10:32] LABS: BASO # 0.01 K/mm3 (0.0-2.0); BASO % 0.1 % (0.0-3.0); EOS # 0.1 (0.0-0.7); EOS % 1.5 % (1.5-5.0); GRAN # 6.72 (1.4-6.5); GRAN % 81.5 % (50.0-68.0); HEMATOCRIT 27.6 % (42.0-52.0); LYMPH # 1.1 (1.2-3.4); LYMPH % 13.3 % (22.0-35.0); MEAN CORPUSCULAR HGB CONC 32.6 g/dl (31.0-37.0); MEAN PLATELET VOLUME 9.6 fl (7.0-11.0); MONO # 0.3 (0.1-0.6); MONO % 3.6 % (1.0-6.0); PLATELET COUNT 295 10^3/uL (120.0-450.0); RED CELL DISTRIBUTION WIDTH 12.9 % (11.5-14.5); WHITE BLOOD COUNT 8.3 10^3/ul (4.5-11.0)
[2016-12-17] MEDS: Linezolid 600 mg in D5W 300 ml 600 MG/300 ML BAG IVPB SCH ×2 (10:53→22:38)
--- NOTE | 2016-12-17 14:12 | PN ---
DATE: 12/17/2016 The patient is in bed in no acute distress, nontoxic. PHYSICAL EXAMINATION: VITAL SIGNS: Temperature is 98. Blood pressure is 140/100, respiratory rate of 18. HEENT: Unremarkable. NECK: Supple. LUNGS: Decreased breath sounds. HEART: Normal S1, S2. ABDOMEN: Soft, nontender. LABORATORY EXAMINATION: Reveals the patient's white count is 8.3, hemoglobin of 9, platelets of 295. Sed rate is 77. Chemistry reveals a BUN of 53, creatinine of 1.8. Urinalysis is noted. Microbiol ogy is reviewed. MRSA, Proteus, Klebsiella. The repeat blood cultures are negative. Initially, the patient had a positive corynebacterium in the blood. The pathology report from the soft tissue on 0 12/12/2016 shows a portion of gangrenous necrosis and acute osteomyelitis involving the resection end. Review of systems is noted. Dr. Alan King's note is reviewed. ASSESSMENT AND PLAN: An 81-year-old male seen earlier today in 571, bed 1, with skin and soft tissue infection, necrotizing gangrene, status post amputation, was taken to the operating room now post-pr ocedure day #2. Awaiting for the operating room pathology report. Currently on meropenem and Zyvox. We will follow with you. Simón Dickerson MD cc: 350 TT: 12/17/2016 14:11:18 Confirmation # [id number] Dictation # [id number] tn
[2016-12-18] MEDS: Insulin Lispro (humaLOG) MIX 75/25(10 ml) SC SCH ×2 (08:30→17:58)
--- NOTE | 2016-12-18 09:14 | PN ---
DATE: 12/16/2016 DATE OF EVALUATION: 12/16/2016 HISTORY OF PRESENT ILLNESS: The patient is an 81-year-old male admitted with worsening right foot pain and swelling. He had gangrenous right fifth toe, which underwent resection of the right fifth toe and incision and drainage of the right foot abscess. Pathology consistent with acute osteomyelitis. He is currently on Zyvox and Zosyn, feeling better. Denies any pain. He also has history of congestive heart failure. No shortness of breath. Cardiovascular is stable. He also has type 2 diabetes mellitus. Blood sugar controlled with current medications. Has dementia, baseline, stable. He has episodes of agitation. PAST MEDICAL HISTORY: Hypertension, congestive cardiac failure, left ventricular dysfunction, non-insulin dependent diabetes mellitus, dementia. FAMILY HISTORY: Noncontributory. PERSONAL HISTORY: Denies any smoking, no drinking. SOCIAL HISTORY: Lives at home with . HOME MEDICATIONS: Humalog 40 mg before breakfast and 40 before the dinner, Klonopin 40 mg daily, lisinopril 40 mg daily, Zyvox. REVIEW OF SYSTEMS: As per HPI. Rest of 12-point review of systems reviewed and negative. PHYSICAL EXAMINATION: GENERAL: Comfortable in bed, in no acute distress. VITAL SIGNS: Stable. Temperature 98.7, heart rate 80 per minute, blood pressure 130/70, respiratory rate 15 per minute, oxygen saturation 98% room air. HEENT: Normal. NECK: No lymphadenopathy. CHEST: Air entry present, equal bilateral. No added sound. CARDIOVASCULAR: S1, S2 normal. No murmur, no gallop. ABDOMEN: Soft, nontender, no hepatosplenomegaly. EXTREMITIES: No edema. Right foot in dressing. NEUROLOGIC: Awake, alert, oriented x 3. No sensory motor deficit. LABORATORY DATA: White count 15.2, hemoglobin 11.7, platelet 237. INR 1. Sodium 139, potassium 3.7, chloride 94, creatinine 1.7, bilirubin 1.7. ASSESSMENT: 1. Right fifth toe gangrene, status post amputation. 2. Leukocytosis. 3. Anemia. 4. Diabetes mellitus type 2. 5. Hypertension. 6. Dementia. PLAN: He is status post amputation right fifth toe. Currently on antibiotics, meropenem and Zyvox. Pathology showed acute osteomyelitis. Culture from the pathology specimen pending. Previous wound culture is MRSA. Continue antibiotic. ID, Dr. Dickerson, following. Podiatry, Dr. Caceres following. We will continue Norvasc 10 mg daily, Klonopin 2 mg at bedtime, Lasix 40 mg daily, insulin as per sliding scale , lisinopril 40 mg daily, Percocet p.r.n. for pain, tramadol p.r.n. for pain. Leukocytosis resolving, white count 11.5 today, previously 12.5. Hemoglobin and hematocrit stable at 9.9. He has chronic renal insufficiency. BUN and creatinine stable at 1.7, 1.8. Viviana Honeycutt MD cc: [id number] TT: 12/18/2016 09:13:33 Confirmation # [id number] Dictation # [id number] sn MTDD
--- NOTE | 2016-12-18 09:18 | PN ---
DATE: 12/17/2016 SUBJECTIVE: He is comfortable in bed, no acute distress. He screams and shouts at the family member s and also at staff nurse. Denies any chest pain. No shortness of breath. He developed swelling of the right arm at the IV site. Swelling noticed by the staff nurse. He did not complain of any pain . No fever. No cough with expectoration. Currently on IV antibiotic with Zyvox and Zosyn. REVIEW OF SYSTEMS: As per HPI. Rest of 12-point reviewed and negative. PHYSICAL EXAMINATION: GENERAL: Comfortable in bed, in no acute distress. VITAL SIGNS: Temperature 98.7, heart rate 80 per minute, respiratory rate 15 per minute, blood press ure 130/70. HEENT: Normal. CHEST: Air entry present, equal bilateral. No added sound. CARDIOVASCULAR: Within normal limits. ABDOMEN: Soft, nontender, no hepatosplenomegaly. EXTREMITIES: No edema. Right lower extremity in dressing. Swelling of the right upper extremity pre sent. NEUROLOGIC: Alert, oriented x 3. No focal sensorimotor deficit. LABORATORIES: Sugar 71. White count 8.3, hemoglobin 9, hematocrit 27.6, platelet count 295. MEDICATIONS: Tylenol 650 q. 6 hours p.r.n., Norvasc 10 mg daily, Klonopin 0.5 mg at bedtime, glucose in dextrose at 50 mL an hour, Lasix 40 mg daily, sliding scale insulin, Humalog insulin 75/25 40 uni ts daily, Zyvox, meropenem, lisinopril 40 mg daily, Zofran p.r.n., Percocet and tramadol for pain. ASSESSMENT: Right fifth toe gangrene, status post amputation, status post acute drainage of the righ t foot, right arm swelling, hypertension, acute renal failure, anemia, leukocytosis. PLAN: Developed new swelling of the right upper arm related to IV infiltration. Discontinue IV in t he right arm. Ultrasound Doppler of the right arm ordered. Cold compresses for the right arm. He i s currently on IV antibiotic, meropenem and Zyvox. Had MRSA of the right foot. ID following. Dr. Seema ureña's notes reviewed. Pain controlled with current medication, tramadol and Percocet Anemia, hemoglobin and hematocrit stable. Leukocytosis resolving. White count declined to 9.4. Acute renal failure, stable. Hypertension, blood pressure controlled on current medications. Viviana Honeycutt MD cc: [id number] TT: 12/18/2016 09:17:42 Confirmation # [id number] Dictation # [id number] en
[2016-12-18] MEDS: Meropenem 1g/NS 100mL IVPB 1 GM/100 ML PIGGYBACK IVPB SCH ×2 (09:28→23:04)
[2016-12-18] MEDS: Linezolid 600 mg in D5W 300 ml 600 MG/300 ML BAG IVPB SCH (09:29)
[2016-12-18] MEDS: Insulin Reg-MEDIUM-Coverage SC SCH ×4 (09:30→22:08)
[2016-12-18] MEDS: TraMADol/Apap 37.5/325 mg Tab PO PRN (11:43)
--- NOTE | 2016-12-18 12:50 | PN ---
DATE: 12/18/2016 The patient seen earlier today in 571, bed 1. No fevers, no chills, no nausea, no vomiting. Tolerat ing the medications. PHYSICAL EXAMINATION: VITAL SIGNS: Temperature is 97, blood pressure is 160/70, respiratory rate 22, heart rate of 94. HEENT: Unremarkable. NECK: Supple. LUNGS: Have decreased breath sounds. HEART: Normal S1, S2. ABDOMEN: Soft, nontender. LABORATORY EXAMINATION: Reveals the patient to have a white count of 8.3, hemoglobin of 9, platelets of 295 and sed rate is 77. Chemistries are noted. Urinalysis is noted. Microbiology is pending. Earlier microbiology shows MRSA, Proteus and Klebsiella. Review of orders reveals the patient to be on meropenem and Zyvox. Dr. Honeycutt's note is reviewed from today. ASSESSMENT AND PLAN: An 81-year-old male, was seen earlier this morning with a skin and skin soft ti ssue infection, neck dressing, gangrene, status post amputation. Post-procedure day #3. I am waitin g for OR cultures and OR pathology to determine the duration and route of antibiotics. Pending patho logy report and OR cultures. Simón Dickerson MD cc: [id number] TT: 12/18/2016 12:49:59 Confirmation # [id number] Dictation # [id number] en
--- NOTE | 2016-12-18 13:16 | US ---
PROCEDURE: Right upper extremity venous US CLINICAL HISTORY: Arm pain and swelling Evaluate for deep venous thrombosis. PHYSICIAN(S): Giovani Matute M.D FINDINGS: The visualized rightinternal jugular vein is sonographically normal and compressible. No evidence of obstruction or thrombus is seen. The visualized segments of the right subclavian vein are patent with normal waveforms. No sonographic evidence of obstruction or thrombosis is seen. The visualized deep venous system of the proximal right upper extremity is sonographically normal and compressible. IMPRESSION: 1. No sonographic evidence for deep venous thrombosis in the visualized segments of the right upper extremity.
--- NOTE | 2016-12-18 15:08 | CP.PCM.PN ---
Subjective - Date & Time of Evaluation Date of Evaluation: 12/18/16 Time of Evaluation: 11:00 - Subjective Subjective: Pt has very poor veins ,needs iv access Objective - Vital Signs/Intake and Output Vital Signs (last 24 hours): Temp Pulse Resp BP Pulse Ox 97.9 F 94 H 22 163/73 H 94 L 12/18/16 07:30 12/18/16 07:30 12/18/16 07:30 12/18/16 09:28 12/18/16 07:30 Intake and Output: 12/18/16 12/18/16 06:59 18:59 Intake Total 600 Output Total 600 Balance 0 - Medications Medications: Current Medications Acetaminophen (Tylenol 325mg Tab) 650 mg PO Q6H PRN PRN Reason: Fever >100.4 F Last Admin: 12/12/16 16:46 Dose: 650 mg Acetaminophen (Tylenol 325mg Tab) 650 mg PO Q4H PRN PRN Reason: Pain, Mild (1-3) Amlodipine Besylate (Norvasc) 10 mg PO DAILY [facility] Last Admin: 12/18/16 09:28 Dose: 10 mg Clonazepam (Klonopin) 0.5 mg PO [facility] PRN Reason: Protocol Last Admin: 12/18/16 09:28 Dose: 0.5 mg Furosemide (Lasix) 40 mg PO DAILY [facility] Last Admin: 12/18/16 09:28 Dose: 40 mg Meropenem 1g/NS 100mL IVPB (Meropenem 1g/Ns 100ml Ivpb) 1 gm in 100 mls @ 100 mls/hr IVPB Q12 [facility] PRN Reason: Protocol Stop: 12/20/16 09:20 Last Admin: 12/18/16 09:28 Dose: 100 mls/hr Dextrose/Sodium Chloride (Dextrose 5%/0.45% Ns 1000 Ml) 1,000 mls @ 50 mls/hr IV .Q20H [facility] Last Admin: 12/15/16 21:19 Dose: 50 mls/hr Insulin Human Regular (Humulin R Med) 0 units SC ACHS [facility] PRN Reason: Protocol Last Admin: 12/18/16 13:18 Dose: 1 units Insulin Lispro Protam/Lispro Human (Humalog Mix 75/25) 40 units SC ACB [facility] Last Admin: 12/18/16 08:30 Dose: Not Given Insulin Lispro Protam/Lispro Human (Humalog Mix 75/25) 40 units SC ACD [facility] Last Admin: 12/17/16 17:36 Dose: 40 unit Linezolid (Zyvox) 600 mg PO BID [facility] PRN Reason: Protocol Stop: 12/27/16 18:01 Lisinopril (Zestril) 40 mg PO DAILY [facility] Last Admin: 12/18/16 09:27 Dose: 40 mg Ondansetron HCl (Zofran Inj) 4 mg IVP ONCE PRN PRN Reason: Nausea/Vomiting Tramadol/Acetaminophen (Ultracet 37.5/325 Mg) 1 tab PO Q6H PRN PRN Reason: Pain, moderate (4-7) Last Admin: 12/18/16 11:43 Dose: 1 tab - Labs Labs: 12/17/16 10:26 12/14/16 07:20 PT 11.9 Seconds (9.9-11.8) H 12/10/16 21:08 INR 1.10 (0.93-1.08) H 12/10/16 21:08 APTT 28.0 Seconds (23.7-30.8) 12/10/16 21:08 - Constitutional Appears: No Acute Distress Assessment and Plan - Assessment and Plan (Free Text) Assessment: Poor venous access Plan: Hep lock inserted in the L forearm . # 24 angiocath used.
--- NOTE | 2016-12-18 16:01 | CP.PCM.PN ---
Subjective - Date & Time of Evaluation Date of Evaluation: 12/18/16 Time of Evaluation: 13:00 - Subjective Subjective: 12/18/2016 SUBJECTIVE: He is comfortable in bed, Episodes of agitation. Denies any chest pain. No shortness of breath. He developed swelling of the right arm at the IV site. Swelling noticed by the staff nurse. He did not complain of any pain. No fever. No cough with expectoration. Currently on IV antibiotic with Zyvox. Doppler right upper extremity done today, reults awaited. REVIEW OF SYSTEMS: As per HPI. Rest of 12-point reviewed and negative. PHYSICAL EXAMINATION: GENERAL: Comfortable in bed, in no acute distress. VITAL SIGNS: reviewed. HEENT: Normal. CHEST: Air entry present, equal bilateral. No added sound. CARDIOVASCULAR: Within normal limits. ABDOMEN: Soft, nontender, no hepatosplenomegaly. EXTREMITIES: No edema. Right lower extremity in dressing. Swelling of the right upper extremity present. NEUROLOGIC: Alert, oriented x 3. No focal sensorimotor deficit. LABORATORIES: Sugar 71. White count 8.3, hemoglobin 9, hematocrit 27.6, platelet count 295. MEDICATIONS: Tylenol 650 q. 6 hours p.r.n., Norvasc 10 mg daily, Klonopin 0.5 mg at bedtime, glucose in dextrose at 50 mL an hour, Lasix 40 mg daily, sliding scale insulin, Humalog insulin 75/25 40 units daily, Zyvox, meropenem, lisinopril 40 mg daily, Zofran p.r.n., Percocet and tramadol for pain. ASSESSMENT: Right fifth toe gangrene, status post amputation, status post acute drainage of the right foot, right arm swelling, hypertension, acute renal failure, anemia, leukocytosis. PLAN: swelling right arm decreased. Doppler done today. He is currently on IV antibiotic, meropenem and Zyvox. Had MRSA of the right foot. ID following. Dr. Dickerson's notes reviewed. Pain controlled with current medication, tramadol and Percocet Anemia, hemoglobin and hematocrit stable. White count declining. Acute renal failure, stable. blood pressure controlled on current medications. Viviana Honeycutt MD Objective - Vital Signs/Intake and Output Vital Signs (last 24 hours): Temp Pulse Resp BP Pulse Ox 97.9 F 94 H 22 163/73 H 94 L 12/18/16 07:30 12/18/16 07:30 12/18/16 07:30 12/18/16 09:28 12/18/16 07:30 Intake and Output: 12/18/16 12/18/16 06:59 18:59 Intake Total 600 Output Total 600 Balance 0 - Medications Medications: Current Medications Acetaminophen (Tylenol 325mg Tab) 650 mg PO Q6H PRN PRN Reason: Fever >100.4 F Last Admin: 12/12/16 16:46 Dose: 650 mg Acetaminophen (Tylenol 325mg Tab) 650 mg PO Q4H PRN PRN Reason: Pain, Mild (1-3) Amlodipine Besylate (Norvasc) 10 mg PO DAILY [facility] Last Admin: 12/18/16 09:28 Dose: 10 mg Clonazepam (Klonopin) 0.5 mg PO [facility] PRN Reason: Protocol Last Admin: 12/18/16 09:28 Dose: 0.5 mg Furosemide (Lasix) 40 mg PO DAILY [facility] Last Admin: 12/18/16 09:28 Dose: 40 mg Meropenem 1g/NS 100mL IVPB (Meropenem 1g/Ns 100ml Ivpb) 1 gm in 100 mls @ 100 mls/hr IVPB Q12 [facility] PRN Reason: Protocol Stop: 12/20/16 09:20 Last Admin: 12/18/16 09:28 Dose: 100 mls/hr Dextrose/Sodium Chloride (Dextrose 5%/0.45% Ns 1000 Ml) 1,000 mls @ 50 mls/hr IV .Q20H [facility] Last Admin: 12/15/16 21:19 Dose: 50 mls/hr Insulin Human Regular (Humulin R Med) 0 units SC ACHS [facility] PRN Reason: Protocol Last Admin: 12/18/16 13:18 Dose: 1 units Insulin Lispro Protam/Lispro Human (Humalog Mix 75/25) 40 units SC ACB [facility] Last Admin: 12/18/16 08:30 Dose: Not Given Insulin Lispro Protam/Lispro Human (Humalog Mix 75/25) 40 units SC ACD [facility] Last Admin: 12/17/16 17:36 Dose: 40 unit Linezolid (Zyvox) 600 mg PO BID [facility] PRN Reason: Protocol Stop: 12/27/16 18:01 Lisinopril (Zestril) 40 mg PO DAILY [facility] Last Admin: 12/18/16 09:27 Dose: 40 mg Ondansetron HCl (Zofran Inj) 4 mg IVP ONCE PRN PRN Reason: Nausea/Vomiting Tramadol/Acetaminophen (Ultracet 37.5/325 Mg) 1 tab PO Q6H PRN PRN Reason: Pain, moderate (4-7) Last Admin: 12/18/16 11:43 Dose: 1 tab - Labs Labs: 12/17/16 10:26 12/14/16 07:20 PT 11.9 Seconds (9.9-11.8) H 12/10/16 21:08 INR 1.10 (0.93-1.08) H 12/10/16 21:08 APTT 28.0 Seconds (23.7-30.8) 12/10/16 21:08
[2016-12-18] MEDS: Dextrose 5%/0.45% NS 1,000 ML IV SCH (17:59)
--- NOTE | 2016-12-19 08:33 | PN ---
DATE: 12/16/2016 An 81-year-old male seen at bedside, status post day 1 right transmetatarsal amputation. The patient had a slight temperature. The patient has been afebrile. Unable to determine if the patient has pa in, as he has dementia and does not answer questions appropriately when asked. VITAL SIGNS: Taken today reveal a temperature of 98.4, pulse rate of 75, blood pressure 130/68, resp iratory rate of 20. LABORATORY DATA: Last laboratory findings reveal a white count of 11.2, hemoglobin of 10.1, hematocr it of 29.8. His ESR is elevated at 77. Preliminary results from cultures taken in the OR show no gr owth of organisms. OBJECTIVE: The patient's ZO drain is intact and shows approximately 10 mL of drainage. His surgical site presents with incisions intact and well coapted with no drainage. There are no signs of necros is of the flap at this time. There is no purulence emanating from the incision site and the overall edema and erythema of the foot and lower leg has decreased. ASSESSMENT: Status post day 1 right transmetatarsal amputation. PLAN: The patient was examined and wound was cleansed and a new dry sterile dressing was applied. W e will keep him off weightbearing until further notice. We will continue with IV antibiotics as per infectious disease. We will order a CBC today, as one has not been ordered. The patient will be see n and followed daily. Alan King DPM cc: [id number] TT: 12/16/2016 19:45:45 Confirmation # [id number] Dictation # [id number] snehal
[2016-12-19] MEDS: Insulin Reg-MEDIUM-Coverage SC SCH ×4 (08:39→22:35)
[2016-12-19] MEDS: Insulin Lispro (humaLOG) MIX 75/25(10 ml) SC SCH ×2 (08:39→17:30)
--- NOTE | 2016-12-19 09:56 | PN ---
DATE: 12/19/2016 SUBJECTIVE: The patient has no complaints of any chest pain, no shortness of breath, no headaches or dizziness. PHYSICAL EXAMINATION: VITAL SIGNS: Temperature is 98.2, pulse of 80, blood pressure 161/72, respirations 20. GENERAL: The patient is comfortable, in no acute distress. HEENT: Anicteric sclerae. Moist mucosa. NECK: No JVD or adenopathy. CARDIAC: S1/S2. No murmurs. No rubs. Regular. RESPIRATORY: Clear to auscultation bilaterally. No wheezes, rales, or rhonchi. Good air entry. ABDOMEN: Bowel sounds are positive, soft, nontender, and nondistended. EXTREMITIES: No edema. Has 1+ pulses. LABS: Hemoglobin is 9 and creatinine is 1.8. ASSESSMENT: 1. Right fifth toe gangrene, status post irrigation and debridement. 2. Sepsis. 3. Status post transmetatarsal amputation of right foot. 4. Hypertension. 5. Dementia, Alzheimer's type. 6. Acute kidney injury. PLAN: The patient is currently on IV fluids. I will discontinue his IV fluids. He is going to be on his insulin for his diabetes. He is on Lasix daily. The patient is on amlodipine for hypertension. He is on lisinopril. The patient is on Zyvox. He is on a heart healthy diet. Bruno Garcia MD cc: [id number] TT: 12/19/2016 09:55:48 Confirmation # [id number] Dictation # [id number] sangeetha MURGUIA
[2016-12-19] MEDS: Meropenem 1g/NS 100mL IVPB 1 GM/100 ML PIGGYBACK IVPB SCH ×2 (10:15→22:04)
--- NOTE | 2016-12-19 13:34 | CP.PCM.PN ---
<Amie Hope - Last Filed: 12/19/16 13:52> Subjective - Date & Time of Evaluation Date of Evaluation: 12/19/16 Time of Evaluation: 13:31 - Subjective Subjective: 81 y/o male seen at bedside with attending Dr. King 4 days s/p right foot TMA. Patient resting comfortably in bed in NAD and AAOx3. Patient's dressing remains clean,dry,intact with the drain intact. Patient denies any acute events overnight. patient denies n/f/v/d/c/sob. Objective - Vital Signs/Intake and Output Vital Signs (last 24 hours): Temp Pulse Resp BP Pulse Ox 98.2 F 80 20 161/72 H 95 12/19/16 08:00 12/19/16 08:00 12/19/16 08:00 12/19/16 10:15 12/19/16 08:00 Intake and Output: 12/19/16 12/19/16 06:59 18:59 Output Total 600 30 Balance -600 -30 - Medications Medications: Current Medications Acetaminophen (Tylenol 325mg Tab) 650 mg PO Q6H PRN PRN Reason: Fever >100.4 F Last Admin: 12/12/16 16:46 Dose: 650 mg Acetaminophen (Tylenol 325mg Tab) 650 mg PO Q4H PRN PRN Reason: Pain, Mild (1-3) Amlodipine Besylate (Norvasc) 10 mg PO DAILY [facility] Last Admin: 12/19/16 10:15 Dose: 10 mg Clonazepam (Klonopin) 0.5 mg PO AMHS [facility] PRN Reason: Protocol Last Admin: 12/19/16 10:14 Dose: 0.5 mg Furosemide (Lasix) 40 mg PO DAILY [facility] Last Admin: 12/19/16 10:14 Dose: 40 mg Meropenem 1g/NS 100mL IVPB (Meropenem 1g/Ns 100ml Ivpb) 1 gm in 100 mls @ 100 mls/hr IVPB Q12 [facility] PRN Reason: Protocol Stop: 12/20/16 09:20 Last Admin: 12/19/16 10:15 Dose: 100 mls/hr Insulin Human Regular (Humulin R Med) 0 units SC ACHS [facility] PRN Reason: Protocol Last Admin: 12/19/16 12:01 Dose: 1 units Insulin Lispro Protam/Lispro Human (Humalog Mix 75/25) 40 units SC ACB [facility] Last Admin: 12/19/16 08:39 Dose: 40 units Insulin Lispro Protam/Lispro Human (Humalog Mix 75/25) 40 units SC ACD [facility] Last Admin: 12/18/16 17:58 Dose: Not Given Linezolid (Zyvox) 600 mg PO BID [facility] PRN Reason: Protocol Stop: 12/27/16 18:01 Last Admin: 12/19/16 10:15 Dose: 600 mg Lisinopril (Zestril) 40 mg PO DAILY [facility] Last Admin: 12/19/16 10:15 Dose: 40 mg Ondansetron HCl (Zofran Inj) 4 mg IVP ONCE PRN PRN Reason: Nausea/Vomiting Tramadol/Acetaminophen (Ultracet 37.5/325 Mg) 1 tab PO Q6H PRN PRN Reason: Pain, moderate (4-7) Last Admin: 12/18/16 11:43 Dose: 1 tab - Labs Labs: 12/17/16 10:26 12/14/16 07:20 PT 11.9 Seconds (9.9-11.8) H 12/10/16 21:08 INR 1.10 (0.93-1.08) H 12/10/16 21:08 APTT 28.0 Seconds (23.7-30.8) 12/10/16 21:08 - Constitutional Appears: Well, Non-toxic, No Acute Distress - Extremities Exam Additional comments: Vasc: nonpalpable pulses, TG wnl, capillary fill to stump < 4 sec neuro: grossly diminished derm: no edema, mild erythema, surgical site well coapted, meg and sutures intact, distal stump site lateral aspect mildly necrotic and discolored, no active drainage, no purulence, no dehiscence ortho pain on palpation of stump site to R foot - Neurological Exam Neurological Exam: Alert, Awake, Oriented x3 - Psychiatric Exam Psychiatric exam: Normal Affect, Normal Mood Assessment and Plan - Assessment and Plan (Free Text) Assessment: 81 y/o male seen at [facility] 4 days s/p right foot TMA Plan: patient evaluated and chart reviewed seen at bedside with attending Dr. King labs and vitals reviewed; afebrile continue IV abx as per ID drain pulled, applied adaptic, DSD to right foot podiatry will continue to follow while patient remains in house <Jacki Kingaris - Last Filed: 12/20/16 13:10> Objective - Vital Signs/Intake and Output Vital Signs (last 24 hours): Temp Pulse Resp BP Pulse Ox 99 F 87 18 156/72 H 95 12/20/16 08:13 12/20/16 08:13 12/20/16 08:13 12/20/16 10:52 12/20/16 08:13 Intake and Output: 12/20/16 12/20/16 06:59 18:59 Intake Total 840 540 Output Total 715 200 Balance 125 340 - Medications Medications: Current Medications Acetaminophen (Tylenol 325mg Tab) 650 mg PO Q6H PRN PRN Reason: Fever >100.4 F Last Admin: 12/12/16 16:46 Dose: 650 mg Acetaminophen (Tylenol 325mg Tab) 650 mg PO Q4H PRN PRN Reason: Pain, Mild (1-3) Amlodipine Besylate (Norvasc) 10 mg PO DAILY [facility] Last Admin: 12/20/16 10:52 Dose: 10 mg Cefpodoxime Proxetil (Vantin) 100 mg PO Q24H [facility] PRN Reason: Protocol Last Admin: 12/20/16 10:52 Dose: 100 mg Clonazepam (Klonopin) 0.5 mg PO AMHS [facility] PRN Reason: Protocol Last Admin: 12/20/16 10:52 Dose: 0.5 mg Insulin Human Regular (Humulin R Med) 0 units SC ACHS [facility] PRN Reason: Protocol Last Admin: 12/20/16 11:36 Dose: 3 units Insulin Lispro Protam/Lispro Human (Humalog Mix 75/25) 40 units SC ACB [facility] Last Admin: 12/20/16 08:17 Dose: Not Given Insulin Lispro Protam/Lispro Human (Humalog Mix 75/25) 40 units SC ACD [facility] Last Admin: 12/19/16 17:30 Dose: Not Given Linezolid (Zyvox) 600 mg PO BID [facility] PRN Reason: Protocol Stop: 12/27/16 18:01 Last Admin: 12/20/16 10:59 Dose: 600 mg Lisinopril (Zestril) 40 mg PO DAILY [facility] Last Admin: 12/20/16 10:54 Dose: 40 mg Ondansetron HCl (Zofran Inj) 4 mg IVP ONCE PRN PRN Reason: Nausea/Vomiting Tramadol/Acetaminophen (Ultracet 37.5/325 Mg) 1 tab PO Q6H PRN PRN Reason: Pain, moderate (4-7) Last Admin: 12/20/16 01:49 Dose: 1 tab - Labs Labs: 12/17/16 10:26 12/14/16 07:20 PT 11.9 Seconds (9.9-11.8) H 12/10/16 21:08 INR 1.10 (0.93-1.08) H 12/10/16 21:08 APTT 28.0 Seconds (23.7-30.8) 12/10/16 21:08 Attending/Attestation - Attestation I have personally seen and examined this patient.: Yes I have fully participated in the care of the patient.: Yes I have reviewed all pertinent clinical information, including history, physical exam and plan: Yes
--- NOTE | 2016-12-19 17:19 | PN ---
DATE: 12/19/2016 The patient is in bed in no acute distress, nontoxic. PHYSICAL EXAMINATION: VITAL SIGNS: Temperature is 98, blood pressure is 160/70, respiratory rate of 16. HEENT: Unremarkable. NECK: Supple. LUNGS: Have decreased breath sounds. HEART: Normal S1, S2. ABDOMEN: Soft, nontender. LABORATORY DATA: Reveals a white count of 8.3, hemoglobin of 9, platelets of 295. Chemistries are n oted. Urinalysis is noted. Microbiology is reviewed. ASSESSMENT AND PLAN: An 81-year-old male seen earlier this morning with skin and skin soft tissue in fection and status post amputation post-procedure day #4, with microbiology from the wound cultures, anaerobic culture is no anaerobes isolated, no growth from the . The blood cultures are negative and pathology from the reveals a portion of the toe showing gangrenous necrosis and acute osteo myelitis involving resection and that was from the . Operative pathology report from the 07 28: The patient had a right foot transmetatarsal amputation and bone and soft tissue removed is pen ding. Currently, the patient is on meropenem, which requires renewal. Dr. Garcia's note is review ed. We will make further recommendations upon availability of the pathology report regarding the dur ation and the antibiotic treatment. Simón Dickerson MD cc: [id number] TT: 12/19/2016 17:18:33 Confirmation # [id number] Dictation # [id number]
[2016-12-20] MEDS: TraMADol/Apap 37.5/325 mg Tab PO PRN (01:49)
[2016-12-20] MEDS: Insulin Reg-MEDIUM-Coverage SC SCH ×4 (07:57→22:30)
[2016-12-20] MEDS: Insulin Lispro (humaLOG) MIX 75/25(10 ml) SC SCH ×2 (08:17→17:01)
[2016-12-20] MEDS: Cefpodoxime (Vantin) 100 mg Tab PO SCH (10:52)
--- NOTE | 2016-12-20 13:39 | CP.PCM.PN ---
<Amie Hope - Last Filed: 12/20/16 13:36> Subjective - Date & Time of Evaluation Date of Evaluation: 12/20/16 Time of Evaluation: 13:36 - Subjective Subjective: 81 y/o male seen at bedside with attending Dr. King 5 days s/p right foot TMA. Patient resting comfortably in bed in NAD and AAOx3. Patient's dressing remains clean,dry, and intact. Patient denies any acute events overnight. patient denies n/f/v/d/c/sob. Objective - Vital Signs/Intake and Output Vital Signs (last 24 hours): Temp Pulse Resp BP Pulse Ox 99 F 87 18 156/72 H 95 12/20/16 08:13 12/20/16 08:13 12/20/16 08:13 12/20/16 10:52 12/20/16 08:13 Intake and Output: 12/20/16 12/20/16 06:59 18:59 Intake Total 840 540 Output Total 715 400 Balance 125 140 - Medications Medications: Current Medications Acetaminophen (Tylenol 325mg Tab) 650 mg PO Q6H PRN PRN Reason: Fever >100.4 F Last Admin: 12/12/16 16:46 Dose: 650 mg Acetaminophen (Tylenol 325mg Tab) 650 mg PO Q4H PRN PRN Reason: Pain, Mild (1-3) Amlodipine Besylate (Norvasc) 10 mg PO DAILY [facility] Last Admin: 12/20/16 10:52 Dose: 10 mg Cefpodoxime Proxetil (Vantin) 100 mg PO Q24H [facility] PRN Reason: Protocol Last Admin: 12/20/16 10:52 Dose: 100 mg Clonazepam (Klonopin) 0.5 mg PO AMHS [facility] PRN Reason: Protocol Last Admin: 12/20/16 10:52 Dose: 0.5 mg Insulin Human Regular (Humulin R Med) 0 units SC ACHS [facility] PRN Reason: Protocol Last Admin: 12/20/16 11:36 Dose: 3 units Insulin Lispro Protam/Lispro Human (Humalog Mix 75/25) 40 units SC ACB [facility] Last Admin: 12/20/16 08:17 Dose: Not Given Insulin Lispro Protam/Lispro Human (Humalog Mix 75/25) 40 units SC ACD [facility] Last Admin: 12/19/16 17:30 Dose: Not Given Linezolid (Zyvox) 600 mg PO BID [facility] PRN Reason: Protocol Stop: 12/27/16 18:01 Last Admin: 12/20/16 10:59 Dose: 600 mg Lisinopril (Zestril) 40 mg PO DAILY [facility] Last Admin: 12/20/16 10:54 Dose: 40 mg Ondansetron HCl (Zofran Inj) 4 mg IVP ONCE PRN PRN Reason: Nausea/Vomiting Tramadol/Acetaminophen (Ultracet 37.5/325 Mg) 1 tab PO Q6H PRN PRN Reason: Pain, moderate (4-7) Last Admin: 12/20/16 01:49 Dose: 1 tab - Labs Labs: 12/17/16 10:26 12/14/16 07:20 PT 11.9 Seconds (9.9-11.8) H 12/10/16 21:08 INR 1.10 (0.93-1.08) H 12/10/16 21:08 APTT 28.0 Seconds (23.7-30.8) 12/10/16 21:08 - Constitutional Appears: Well, Non-toxic, No Acute Distress - Extremities Exam Additional comments: Vasc: nonpalpable pulses, TG wnl, CFT to stump < 4 sec neuro: grossly diminished derm: no edema, mild erythema, surgical site well coapted, meg and sutures intact, distal stump site lateral aspect mildly necrotic and discolored, no active drainage, no purulence, no dehiscence, no evidence of hematoma ortho pain on palpation of stump site to R foot - Neurological Exam Neurological Exam: Alert, Awake, Oriented x3 - Psychiatric Exam Psychiatric exam: Normal Affect, Normal Mood Assessment and Plan - Assessment and Plan (Free Text) Assessment: 81 y/o male seen at bedside 5 days s/p right foot TMA Plan: Patient evaluated and chart reviewed Pt seen at bedside with attending Dr. King Chart, labs and vitals reviewed; afebrile Continue IV abx as per ID Applied betadine, adaptic, DSD to right foot podiatry will continue to follow while patient remains in house <Alan King - Last Filed: 12/23/16 11:04> Objective - Vital Signs/Intake and Output Vital Signs (last 24 hours): Temp Pulse Resp BP Pulse Ox 98.5 F 54 L 20 151/77 H 95 12/21/16 16:00 12/21/16 16:00 12/21/16 16:00 12/21/16 16:00 12/21/16 16:00 - Labs Labs: 12/17/16 10:26 12/14/16 07:20 PT 11.9 Seconds (9.9-11.8) H 12/10/16 21:08 INR 1.10 (0.93-1.08) H 12/10/16 21:08 APTT 28.0 Seconds (23.7-30.8) 12/10/16 21:08 Attending/Attestation - Attestation I have personally seen and examined this patient.: Yes I have fully participated in the care of the patient.: Yes I have reviewed all pertinent clinical information, including history, physical exam and plan: Yes
--- NOTE | 2016-12-21 00:09 | CP.PCM.PN ---
Subjective - Date & Time of Evaluation Date of Evaluation: 12/20/16 Time of Evaluation: 08:00 - Subjective Subjective: DOING WELL Objective - Vital Signs/Intake and Output Vital Signs (last 24 hours): Temp Pulse Resp BP Pulse Ox 97.7 F 51 L 18 147/60 97 12/20/16 16:00 12/20/16 16:00 12/20/16 16:00 12/20/16 16:00 12/20/16 16:00 Intake and Output: 12/20/16 12/21/16 18:59 06:59 Intake Total 540 540 Output Total 400 450 Balance 140 90 - Medications Medications: Current Medications Acetaminophen (Tylenol 325mg Tab) 650 mg PO Q6H PRN PRN Reason: Fever >100.4 F Last Admin: 12/12/16 16:46 Dose: 650 mg Acetaminophen (Tylenol 325mg Tab) 650 mg PO Q4H PRN PRN Reason: Pain, Mild (1-3) Amlodipine Besylate (Norvasc) 10 mg PO DAILY [facility] Last Admin: 12/20/16 10:52 Dose: 10 mg Cefpodoxime Proxetil (Vantin) 100 mg PO Q24H [facility] PRN Reason: Protocol Last Admin: 12/20/16 10:52 Dose: 100 mg Clonazepam (Klonopin) 0.5 mg PO AMHS [facility] PRN Reason: Protocol Last Admin: 12/20/16 22:32 Dose: 0.5 mg Insulin Human Regular (Humulin R Med) 0 units SC ACHS [facility] PRN Reason: Protocol Last Admin: 12/20/16 22:30 Dose: Not Given Insulin Lispro Protam/Lispro Human (Humalog Mix 75/25) 40 units SC ACB [facility] Last Admin: 12/20/16 08:17 Dose: Not Given Insulin Lispro Protam/Lispro Human (Humalog Mix 75/25) 40 units SC ACD [facility] Last Admin: 12/20/16 17:01 Dose: Not Given Linezolid (Zyvox) 600 mg PO BID [facility] PRN Reason: Protocol Stop: 12/27/16 18:01 Last Admin: 12/20/16 17:09 Dose: 600 mg Lisinopril (Zestril) 40 mg PO DAILY [facility] Last Admin: 12/20/16 10:54 Dose: 40 mg Ondansetron HCl (Zofran Inj) 4 mg IVP ONCE PRN PRN Reason: Nausea/Vomiting Tramadol/Acetaminophen (Ultracet 37.5/325 Mg) 1 tab PO Q6H PRN PRN Reason: Pain, moderate (4-7) Last Admin: 12/20/16 01:49 Dose: 1 tab - Labs Labs: 12/17/16 10:26 12/14/16 07:20 PT 11.9 Seconds (9.9-11.8) H 12/10/16 21:08 INR 1.10 (0.93-1.08) H 12/10/16 21:08 APTT 28.0 Seconds (23.7-30.8) 12/10/16 21:08 - Constitutional Appears: Well - Head Exam Head Exam: ATRAUMATIC, NORMAL INSPECTION, NORMOCEPHALIC - Eye Exam Eye Exam: EOMI, Normal appearance, PERRL Pupil Exam: NORMAL ACCOMODATION, PERRL - ENT Exam ENT Exam: Mucous Membranes Moist, Normal Exam - Neck Exam Neck Exam: Full ROM, Normal Inspection. absent: Lymphadenopathy - Respiratory Exam Respiratory Exam: Clear to Ausculation Bilateral, NORMAL BREATHING PATTERN - Cardiovascular Exam Cardiovascular Exam: REGULAR RHYTHM, +S1, +S2. absent: Murmur - GI/Abdominal Exam GI & Abdominal Exam: Soft, Normal Bowel Sounds. absent: Tenderness - Rectal Exam Rectal Exam: NORMAL INSPECTION - Exam Exam: Circumcision, NORMAL INSPECTION External exam: NORMAL EXTERNAL EXAM Speculum exam: NORMAL SPECULUM EXAM Bimanual exam: NORMAL BIMANUAL EXAM - Extremities Exam Extremities Exam: Full ROM, Normal Capillary Refill, Normal Inspection. absent : Joint Swelling, Pedal Edema - Back Exam Back Exam: NORMAL INSPECTION - Neurological Exam Neurological Exam: Alert, Awake, CN II-XII Intact, Normal Gait, Oriented x3 - Psychiatric Exam Psychiatric exam: Normal Affect, Normal Mood - Skin Skin Exam: Dry, Intact, Normal Color, Warm Assessment and Plan (1) Cellulitis of leg Status: Acute - Assessment and Plan (Free Text) Assessment: S/P AMPUTATION Plan: PO ABX ZYVOX VANTIN
[2016-12-21] MEDS: Insulin Lispro (humaLOG) MIX 75/25(10 ml) SC SCH ×2 (07:56→16:14)
[2016-12-21] MEDS: Insulin Reg-MEDIUM-Coverage SC SCH ×3 (07:57→16:14)
[2016-12-21 08:59] VITALS: RESP 20
[2016-12-21] MEDS: Cefpodoxime (Vantin) 100 mg Tab PO SCH (09:23)
--- NOTE | 2016-12-21 09:25 | CP.PCM.PN ---
Subjective - Date & Time of Evaluation Date of Evaluation: 12/21/16 Time of Evaluation: 09:22 - Subjective Subjective: Pt with no pain. Eating ok. Did not work with PT yesterday. Objective - Vital Signs/Intake and Output Vital Signs (last 24 hours): Temp Pulse Resp BP Pulse Ox 99.3 F 93 H 20 185/74 H 97 12/21/16 08:58 12/21/16 08:58 12/21/16 08:58 12/21/16 08:58 12/21/16 08:58 Intake and Output: 12/21/16 12/21/16 06:59 18:59 Intake Total 660 Output Total 725 Balance -65 - Medications Medications: Current Medications Acetaminophen (Tylenol 325mg Tab) 650 mg PO Q6H PRN PRN Reason: Fever >100.4 F Last Admin: 12/12/16 16:46 Dose: 650 mg Acetaminophen (Tylenol 325mg Tab) 650 mg PO Q4H PRN PRN Reason: Pain, Mild (1-3) Amlodipine Besylate (Norvasc) 10 mg PO DAILY [facility] Last Admin: 12/21/16 06:07 Dose: 10 mg Cefpodoxime Proxetil (Vantin) 100 mg PO Q24H [facility] PRN Reason: Protocol Last Admin: 12/20/16 10:52 Dose: 100 mg Clonazepam (Klonopin) 0.5 mg PO AMHS [facility] PRN Reason: Protocol Last Admin: 12/20/16 22:32 Dose: 0.5 mg Insulin Human Regular (Humulin R Med) 0 units SC ACHS [facility] PRN Reason: Protocol Last Admin: 12/21/16 07:57 Dose: Not Given Insulin Lispro Protam/Lispro Human (Humalog Mix 75/25) 40 units SC ACB [facility] Last Admin: 12/21/16 07:56 Dose: 40 units Insulin Lispro Protam/Lispro Human (Humalog Mix 75/25) 40 units SC ACD [facility] Last Admin: 12/20/16 17:01 Dose: Not Given Linezolid (Zyvox) 600 mg PO BID [facility] PRN Reason: Protocol Stop: 12/27/16 18:01 Last Admin: 12/20/16 17:09 Dose: 600 mg Lisinopril (Zestril) 40 mg PO DAILY [facility] Last Admin: 12/20/16 10:54 Dose: 40 mg Ondansetron HCl (Zofran Inj) 4 mg IVP ONCE PRN PRN Reason: Nausea/Vomiting Tramadol/Acetaminophen (Ultracet 37.5/325 Mg) 1 tab PO Q6H PRN PRN Reason: Pain, moderate (4-7) Last Admin: 12/20/16 01:49 Dose: 1 tab - Labs Labs: 12/17/16 10:26 12/14/16 07:20 PT 11.9 Seconds (9.9-11.8) H 12/10/16 21:08 INR 1.10 (0.93-1.08) H 12/10/16 21:08 APTT 28.0 Seconds (23.7-30.8) 12/10/16 21:08 - Constitutional Appears: Well, Non-toxic - Head Exam Head Exam: NORMAL INSPECTION - Eye Exam Eye Exam: EOMI, Normal appearance - ENT Exam ENT Exam: Mucous Membranes Moist, Normal Exam - Neck Exam Neck Exam: Full ROM - Respiratory Exam Respiratory Exam: Clear to Ausculation Bilateral, NORMAL BREATHING PATTERN - Cardiovascular Exam Cardiovascular Exam: REGULAR RHYTHM, +S1, +S2 - GI/Abdominal Exam GI & Abdominal Exam: Soft, Normal Bowel Sounds, Organomegaly. absent: Tenderness - Extremities Exam Extremities Exam: Full ROM - Back Exam Back Exam: Full ROM, NORMAL INSPECTION - Neurological Exam Neurological Exam: Alert, Awake - Psychiatric Exam Psychiatric exam: Agitated, Normal Mood - Skin Skin Exam: Warm Assessment and Plan - Assessment and Plan (Free Text) Assessment: 1. Right fifth toe gangrene, status post irrigation and debridement. 2. Sepsis. 3. Status post transmetatarsal amputation of right foot. 4. Hypertension. 5. Dementia, Alzheimer's type. 6. Acute kidney injury. Plan: I spoke to the pt's daughter to give an update. Spoke to pt about working with PT. He is going to be on his insulin for his diabetes. He is on Lasix daily. The patient is on amlodipine for hypertension. He is on lisinopril. The patient is on Zyvox and Vantin for Abx. The path report has been reviewed. He is eating ok. Will need [facility].
--- NOTE | 2016-12-21 11:29 | CP.PCM.PN ---
Subjective - Date & Time of Evaluation Date of Evaluation: 12/21/16 Time of Evaluation: 06:30 - Subjective Subjective: DOING WELL Objective - Vital Signs/Intake and Output Vital Signs (last 24 hours): Temp Pulse Resp BP Pulse Ox 99.3 F 93 H 20 158/70 H 97 12/21/16 08:58 12/21/16 08:58 12/21/16 08:58 12/21/16 09:22 12/21/16 08:58 Intake and Output: 12/21/16 12/21/16 06:59 18:59 Intake Total 660 Output Total 725 Balance -65 - Medications Medications: Current Medications Acetaminophen (Tylenol 325mg Tab) 650 mg PO Q6H PRN PRN Reason: Fever >100.4 F Last Admin: 12/12/16 16:46 Dose: 650 mg Acetaminophen (Tylenol 325mg Tab) 650 mg PO Q4H PRN PRN Reason: Pain, Mild (1-3) Amlodipine Besylate (Norvasc) 10 mg PO DAILY [facility] Last Admin: 12/21/16 09:22 Dose: Not Given Cefpodoxime Proxetil (Vantin) 100 mg PO Q24H [facility] PRN Reason: Protocol Last Admin: 12/21/16 09:23 Dose: 100 mg Clonazepam (Klonopin) 0.5 mg PO AMHS [facility] PRN Reason: Protocol Last Admin: 12/21/16 09:18 Dose: 0.5 mg Insulin Human Regular (Humulin R Med) 0 units SC ACHS [facility] PRN Reason: Protocol Last Admin: 12/21/16 07:57 Dose: Not Given Insulin Lispro Protam/Lispro Human (Humalog Mix 75/25) 40 units SC ACB [facility] Last Admin: 12/21/16 07:56 Dose: 40 units Insulin Lispro Protam/Lispro Human (Humalog Mix 75/25) 40 units SC ACD [facility] Last Admin: 12/20/16 17:01 Dose: Not Given Linezolid (Zyvox) 600 mg PO BID [facility] PRN Reason: Protocol Stop: 12/27/16 18:01 Last Admin: 12/21/16 09:18 Dose: 600 mg Lisinopril (Zestril) 40 mg PO DAILY [facility] Last Admin: 12/21/16 09:18 Dose: 40 mg Ondansetron HCl (Zofran Inj) 4 mg IVP ONCE PRN PRN Reason: Nausea/Vomiting Tramadol/Acetaminophen (Ultracet 37.5/325 Mg) 1 tab PO Q6H PRN PRN Reason: Pain, moderate (4-7) Last Admin: 12/20/16 01:49 Dose: 1 tab - Labs Labs: 12/17/16 10:26 12/14/16 07:20 PT 11.9 Seconds (9.9-11.8) H 12/10/16 21:08 INR 1.10 (0.93-1.08) H 12/10/16 21:08 APTT 28.0 Seconds (23.7-30.8) 12/10/16 21:08 - Constitutional Appears: Well - Head Exam Head Exam: ATRAUMATIC, NORMAL INSPECTION, NORMOCEPHALIC - Eye Exam Eye Exam: EOMI, Normal appearance, PERRL Pupil Exam: NORMAL ACCOMODATION, PERRL - ENT Exam ENT Exam: Mucous Membranes Moist, Normal Exam - Neck Exam Neck Exam: Full ROM, Normal Inspection. absent: Lymphadenopathy - Respiratory Exam Respiratory Exam: Clear to Ausculation Bilateral, NORMAL BREATHING PATTERN - Cardiovascular Exam Cardiovascular Exam: REGULAR RHYTHM, +S1, +S2. absent: Murmur - GI/Abdominal Exam GI & Abdominal Exam: Soft, Normal Bowel Sounds. absent: Tenderness - Rectal Exam Rectal Exam: NORMAL INSPECTION - Exam Exam: Circumcision, NORMAL INSPECTION External exam: NORMAL EXTERNAL EXAM Speculum exam: NORMAL SPECULUM EXAM Bimanual exam: NORMAL BIMANUAL EXAM - Extremities Exam Extremities Exam: Full ROM, Normal Capillary Refill, Normal Inspection. absent : Joint Swelling, Pedal Edema - Back Exam Back Exam: NORMAL INSPECTION - Neurological Exam Neurological Exam: Alert, Awake, CN II-XII Intact, Normal Gait, Oriented x3 - Psychiatric Exam Psychiatric exam: Normal Affect, Normal Mood - Skin Skin Exam: Dry, Intact, Normal Color, Warm Assessment and Plan (1) Cellulitis of leg Status: Acute (2) Cellulitis and abscess of foot Status: Acute - Assessment and Plan (Free Text) Plan: PO ABX D/W PMD PATH NOTED POST SX
--- NOTE | 2016-12-21 13:38 | CP.PCM.PN ---
Subjective - Date & Time of Evaluation Date of Evaluation: 12/21/16 Time of Evaluation: 13:35 - Subjective Subjective: 81 year old male patient seen and evaluated at bedside with attending Dr. Caceres s/p 6 days right foot TMA with Dr. King. Patient denies any acute events overnight. Patient denies pain to his surgical site. Patient's dressing appears clean, dry, and intact. Patient denies N/V/F/C/D/SOB. No other pedal complaints at this time. Objective - Vital Signs/Intake and Output Vital Signs (last 24 hours): Temp Pulse Resp BP Pulse Ox 99.3 F 93 H 20 158/70 H 97 12/21/16 08:58 12/21/16 08:58 12/21/16 08:58 12/21/16 09:22 12/21/16 08:58 Intake and Output: 12/21/16 12/21/16 06:59 18:59 Intake Total 660 Output Total 725 Balance -65 - Medications Medications: Current Medications Acetaminophen (Tylenol 325mg Tab) 650 mg PO Q6H PRN PRN Reason: Fever >100.4 F Last Admin: 12/12/16 16:46 Dose: 650 mg Acetaminophen (Tylenol 325mg Tab) 650 mg PO Q4H PRN PRN Reason: Pain, Mild (1-3) Amlodipine Besylate (Norvasc) 10 mg PO DAILY [facility] Last Admin: 12/21/16 09:22 Dose: Not Given Cefpodoxime Proxetil (Vantin) 100 mg PO Q24H [facility] PRN Reason: Protocol Last Admin: 12/21/16 09:23 Dose: 100 mg Clonazepam (Klonopin) 0.5 mg PO AMHS [facility] PRN Reason: Protocol Last Admin: 12/21/16 09:18 Dose: 0.5 mg Insulin Human Regular (Humulin R Med) 0 units SC ACHS [facility] PRN Reason: Protocol Last Admin: 12/21/16 11:27 Dose: Not Given Insulin Lispro Protam/Lispro Human (Humalog Mix 75/25) 40 units SC ACB [facility] Last Admin: 12/21/16 07:56 Dose: 40 units Insulin Lispro Protam/Lispro Human (Humalog Mix 75/25) 40 units SC ACD [facility] Last Admin: 12/20/16 17:01 Dose: Not Given Linezolid (Zyvox) 600 mg PO BID [facility] PRN Reason: Protocol Stop: 12/27/16 18:01 Last Admin: 12/21/16 09:18 Dose: 600 mg Lisinopril (Zestril) 40 mg PO DAILY [facility] Last Admin: 12/21/16 09:18 Dose: 40 mg Ondansetron HCl (Zofran Inj) 4 mg IVP ONCE PRN PRN Reason: Nausea/Vomiting Tramadol/Acetaminophen (Ultracet 37.5/325 Mg) 1 tab PO Q6H PRN PRN Reason: Pain, moderate (4-7) Last Admin: 12/20/16 01:49 Dose: 1 tab - Labs Labs: 12/17/16 10:26 12/14/16 07:20 PT 11.9 Seconds (9.9-11.8) H 12/10/16 21:08 INR 1.10 (0.93-1.08) H 12/10/16 21:08 APTT 28.0 Seconds (23.7-30.8) 12/10/16 21:08 - Constitutional Appears: Well, Non-toxic, No Acute Distress - Extremities Exam Additional comments: Vasc: nonpalpable pulses, Skin temperature is warm to warm, CFT to stump < 4 sec neuro: grossly diminished derm: no edema, mild erythema, surgical site well coapted, meg and sutures intact, distal stump site lateral aspect necrotic and discolored, no active drainage, no purulence, no dehiscence, no evidence of hematoma ortho No pain on palpation of stump site to R foot - Neurological Exam Neurological Exam: Alert, Awake, Oriented x3 - Psychiatric Exam Psychiatric exam: Normal Affect, Normal Mood Assessment and Plan - Assessment and Plan (Free Text) Assessment: 81 year old male POD#6 s/p right foot TMA Plan: Patient seen and evaluated with attending, Dr. Caceres Charts, labs, vitals reviewed: afebrile Patient's RLE dressed with adaptic, 4x4s, ABD, and kerlix Continue with abx per ID Podiatry will continue to follow while in house
[2016-12-21 18:21] VITALS: BP 151/77; PULSE 54; TEMP 98.5; O2SAT 95
== END 2016-12-21 18:00 | DRG 853 ==
LOC: ED 20:19 → ERH 23:13 → 5RSO 12-11 01:17 → OBSVTOIN 12-12 12:00
PROVIDERS: ADMIT Internal Medicine Nephrology; ATTEND Internal Medicine Nephrology
PROC: 0H9KXZZ Drainage of Right Lower Leg Skin, External Approach (ICD-10-PCS; principal; 2016-12-11 19:00)
PROC: 0Y6M0Z9 Detachment at Right Foot, Partial 1st Ray, Open Approach (ICD-10-PCS; 2016-12-15)
PROC: 0Y6M0ZB Detachment at Right Foot, Partial 2nd Ray, Open Approach (ICD-10-PCS; 2016-12-15)
PROC: 0Y6M0ZC Detachment at Right Foot, Partial 3rd Ray, Open Approach (ICD-10-PCS; 2016-12-15)
PROC: 0Y6M0ZD Detachment at Right Foot, Partial 4th Ray, Open Approach (ICD-10-PCS; 2016-12-15)
DX: A41.02 Sepsis due to Methicillin resistant Staphylococcus aureus (principal); A48.0 Gas gangrene; M72.6 Necrotizing fasciitis; N17.9 Acute kidney failure, unspecified; I50.22 Chronic systolic (congestive) heart failure; L02.611 Cutaneous abscess of right foot; L03.115 Cellulitis of right lower limb; L03.116 Cellulitis of left lower limb; M86.171 Other acute osteomyelitis, right ankle and foot; I11.0 Hypertensive heart disease with heart failure; E10.51 Type 1 diabetes mellitus with diabetic peripheral angiopathy without gangrene; E10.621 Type 1 diabetes mellitus with foot ulcer; G30.9 Alzheimer's disease, unspecified; F02.80 Dementia in other diseases classified elsewhere, unspecified severity, without behavioral disturbance, psychotic disturbance, mood disturbance, and anxiety; D64.9 Anemia, unspecified; E10.628 Type 1 diabetes mellitus with other skin complications; E10.69 Type 1 diabetes mellitus with other specified complication; I25.10 Atherosclerotic heart disease of native coronary artery without angina pectoris; L97.519 Non-pressure chronic ulcer of other part of right foot with unspecified severity; Z79.4 Long term (current) use of insulin; Z79.899 Other long term (current) drug therapy; Z82.49 Family history of ischemic heart disease and other diseases of the circulatory system; Z87.891 Personal history of nicotine dependence; Z89.429 Acquired absence of other toe(s), unspecified side; Z89.431 Acquired absence of right foot; R40.2412 Glasgow coma scale score 13-15, at arrival to emergency department; R31.9 Hematuria, unspecified